=== PATIENT | female | born 1995 | race Caucasian/White ===

== ENCOUNTER 2023-12-14 12:49 | Observation (INO) | payer OTHER, SELFPAY ==
[2023-12-14 13:12] VITALS: BP 107/62; PULSE 56; TEMP 36.3
[2023-12-14 13:38] LABS: Bilirubin Urine NEGATIVE (NEGATIVE); Blood Urine NEGATIVE (NEGATIVE); Clarity Urine CLEAR (CLEAR); Color Urine LT. YELLOW (YELLOW); Glucose Urine UA NEGATIVE (NEGATIVE); Ketones Urine NEGATIVE (NEGATIVE); Leukocyte Esterase Urine NEGATIVE (NEGATIVE); Nitrite Urine NEGATIVE (NEGATIVE); Protein Urine NEGATIVE (NEG/TRACE); Specific Gravity Urine <=1.005 (1.005-1.025); Urobilinogen Urine 0.2 EU/dL (0.2-1.0); pH Urine 6.5 (5.0-9.0)
[2023-12-14 13:41] LABS: Urine Microscopic Indicated NO
--- NOTE | 2023-12-14 14:45 | PC.NURSE ---
1440- Vaginal culture obtained per this RN per physician order.
== END 2023-12-14 15:15 | disposition home or self-care (01) ==
LOC: FBC 12-17 14:34
PROVIDERS: Admitting Provider Midwife; PCP Midwife; Visit Provider Obstetrics & Gynecology
DX: O26.892 Other specified pregnancy related conditions, second trimester (principal); R10.2 Pelvic and perineal pain; N89.8 Other specified noninflammatory disorders of vagina; Z3A.22 22 weeks gestation of pregnancy
CPT/HCPCS: 81003; 87070; G0378; G0379

== ENCOUNTER 2024-04-05 10:09 | Inpatient (IN) | payer OTHER, SELFPAY ==
[2024-04-05] VITALS (18 sets, daily range): BP systolic 88–169; BP diastolic 53–125; PULSE 62–105; TEMP 36.1–37.1
--- OUTSIDE RECORDS SUMMARY | 2024-04-05 09:43 | XMS_ITS | CCD ---
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 (Bld) 0.4 % Normal 0.2-2.0 [facility] Comment on above: Performed By: #### C BC #### [facility] [address] [place] [address] Dr. Jayla Sapp EO # 0.0 103/ul Normal 0.0-0.7 [facility] Comment on above: Performed By: #### C BC #### [facility] [address] [place] [address] Dr. Jayla Sapp Eosinophils/100 WBC (Bld) 0.4 % Critically low 0.9-7.0 [facility] Comment on above: Performed By: #### C BC #### [facility] [address] [place] [address] Dr. Jayla Sapp Erythrocyte distribution width (RBC) [Ratio] 12.5 % Normal 11.0-15.0 [facility] Comment on above: Performed By: #### C BC #### [facility] [address] [place] [address] Dr. Jayla Sapp Hematocrit (Bld) [Volume fraction] 37.0 % Normal 36.0-48.0 [facility] Comment on above: Performed By: #### C BC #### [facility] [address] [place] [address] Dr. Jayla Sapp Hemoglobin (Bld) [Mass/Vol] 12.3 g/dL Normal 12.0-16.0 [facility] Comment on above: Performed By: #### C BC #### [facility] [address] [place] [address] Dr. Jayla Sapp IG # 0.05 10e3/ul Critically high 0.00-0.03 [facility] Comment on above: Performed By: #### C BC #### [facility] [address] [place] [address] Dr. Jayla Sapp IG % 0.5 % Normal 0.0-0.5 [facility] Comment on above: Performed By: #### C BC #### [facility] [address] [place] [address] Dr. Jayla Sapp LYMPH # 1.4 103/ul Normal 1.2-3.8 [facility] Comment on above: Performed By: #### C BC #### [facility] [address] [place] [address] Dr. Jayla Sapp Lymphocytes/100 WBC (Bld) 14.6 % Critically low 20.5-60.0 [facility] Comment on above: Performed By: #### C BC #### [facility] [address] [place] [address] Dr. Jayla Sapp MANUAL DIFF REQ NO Normal [facility] Comment on above: Performed By: #### C BC #### [facility] [address] [place] [address] Dr. Jayla Sapp MCH (RBC) [Entitic mass] 30.8 pg Normal 26.7-34.0 [facility] Comment on above: Performed By: #### C BC #### [facility] [address] [place] [address] Dr. Jayla Sapp MCHC (RBC) [Mass/Vol] 33.2 g/dL Normal 29.9-35.2 [facility] Comment on above: Performed By: #### C BC #### [facility] [address] [place] [address] Dr. Jyala Sapp MCV (RBC) [Entitic vol] 92.5 fL Normal 81.0-99.0 [facility] Comment on above: Performed By: #### C BC #### [facility] [address] [place] [address] Dr. Jayla Sapp MONO # 0.8 103/ul Normal 0.3-0.8 [facility] Comment on above: Performed By: #### C BC #### [facility] [address] [place] [address] Dr. Jayla Sapp Monocytes/100 WBC (Bld) 8.1 % Normal 1.7-12.0 [facility] Comment on above: Performed By: #### C BC #### [facility] [address] [place] [address] Dr. Jayla Sapp NEUT # 7.2 103/ul Critically high 1.4-6.5 [facility] Comment on above: Performed By: #### C BC #### [facility] [address] [place] [address] Dr. Jayla Sapp Neutrophils/100 WBC (Bld) 76.0 % Critically high 43.0-75.0 [facility] Comment on above: Performed By: #### C BC #### [facility] [address] [place] [address] Dr. Jayla Sapp Platelet mean volume (Bld) [Entitic vol] 11.4 fL Normal 9.5-13.5 [facility] Comment on above: Performed By: #### C BC #### [facility] [address] [place] [address] Dr. Jayla Sapp PLT 187 103/ul Normal 150-450 [facility] Comment on above: Performed By: #### C BC #### [facility] [address] [place] [address] Dr. Jayla Sapp RBC 4.00 106/ul Critically low 4.20-5.40 [facility] Comment on above: Performed By: #### C BC #### [facility] [address] [place] [address] Dr. Jayla Sapp WBC 9.5 103/ul Normal 4.0-11.0 [facility] Comment on above: Performed By: #### C BC #### [facility] [address] [place] [address] Dr. Jayla Sapp MONOon 10-11-2022 Monocytes (Bld) [#/Vol] Negative Normal NEGATIVE T [facility] Comment on above: Performed By: #### M CASSIDY #### [facility] [address] [place] [address] Dr. Jayla Sapp Covid-19 PCR (CVDTBH)on 04-20 SARS-CoV-2 (COVID-19) RNA MASSIOM+probe Ql (Unsp spec) Not detected Normal NOT DETECTED [facility] Comment on above: Result Comment: This test is not yet approved or cleared by the [place] FDA. When there are no FDA-approved or cleared tests available, and other criteria are met, FDA can make tests available under an emergency access mechanism called an Emergency Use Authorization (EUA). The EUA for this test is supported by the Certified Professional Coder of Health and Human Service's (HHS's) declaration that circumstances exist to justify the emergency use of in vitro diagnostics for the detection and/or diagnosis of the virus that causes COVID-19. This EUA will remain in effect (meaning this test can be used) for the duration of the COVID-19 declaration justifying emergency of IVDs, unless it is terminated or revoked by FDA (after which the test may no longer be used). When diagnostic testing is negative, the possibility of a false negative should be considered in the context of a patient's recent exposures and the presence of clinical signs and symptoms consistent with SARS-CoV-2. Performed By: #### C VDTB #### [facility] [address] [place] [address] Dr. Jayla Sapp INFLUENZA A AND B [facility] 05-08 [facility] SEE BELOW Normal [facility] Comment on above: Result Comment: Nega tive for Flu A protein angiten. Infection due to Flu A cannot be ruled out. Flu A angiten in the sample may be below the detection limit of the test. Performed By: #### I NFLUAB #### [facility] [address] [place] [address] [facility] SEE BELOW Normal [facility] Comment on above: Result Comment: Nega tive for Flu B protein antigen. Infection due to Flu B cannot be ruled out. Flu B antigen in the sample may be below the detection limit of the test. Performed By: #### I NFLUAB #### [facility] [address] [place] [address] Dr. Jayla Sapp INFLUENZA A AG Negative Normal NEGATIVE SEE COMMENT [facility] Comment on above: Performed By: #### I NFLUAB #### [facility] [address] [place] [address] Dr. Jayla Sapp INFLUENZA B AG Negative Normal NEGATIVE SEE COMMENT [facility] Comment on above: Performed By: #### I NFLUAB #### [facility] [address] [place] [address] Dr. Jayla Sapp INTERNAL CONTROLS Within Normal Limits Normal Wi thin Normal Limits [facility] Comment on above: Performed By: #### I NFLUAB #### [facility] [address] [place] [address] Dr. Jayla Sapp CBC auto differentialOrdered By: Tomasa Padgett on 05-01-2021 Absolute Eos # 0.00 [employer] [facility] Work Phone: Absolute Immature Granulocyte 0.26 [facility] Work Phone: Absolute Lymph # 2.05 [employer] [facility] Work Phone: Absolute Emery # 0.77 [employer] [facility] Work Phone: Basophils (Bld) [#/Vol] 0.00 10*3/uL [employer] Work Phone: Basophils/100 WBC (Bld) 0 % 0 - 2 % [facility] Work Phone: Differential Type NOT REPORTED [facility] Phone: Eosinophils/100 WBC (Bld) 0 % Low 1 - 4 % [employer] Phone: Hematocrit (Bld) [Volume fraction] 34.1 % Low 36.3 - 47.1 % [employer] Phone: Hemoglobin.gastrointest inal spec 1 Ql (Stl) 11.2 g/dL Low 11.9 - 15.1 g/dL [employer] Phone: Immature granulocytes/100 WBC (Bld) 2 % High 0 [employer] Phone: Interpretation and review of laboratory results Abnormal [employer] Phone: Lymphocytes/100 WBC (Bld) 16 % Low 24 - 43 % [employer] Phone: MCH (RBC) [Entitic mass] 32.4 pg 25.2 - 33.5 pg [employer] Phone: MCHC (RBC) [Mass/Vol] 32.8 g/dL 28.4 - 34.8 g/dL [employer] Phone: MCV (RBC) [Entitic vol] 98.6 fL 82.6 - 102.9 fL [employer] Work Phone: Monocytes/100 WBC (Bld) 6 % 3 - 12 % [facility] Work Phone: Morphology Vj (Bld) [Interp] Platelet clumps present, count appears adequate. [employer] Work Phone: NRBC Automated 0.0 0.0 per 100 WBC [employer] Phone: Platelet distribution width (Bld) [Ratio] 12.7 % 11.8 - 14.4 % [employer] Phone: Platelet Estimate NOT REPORTED [employer] Phone: Platelet mean volume (Bld) [Entitic vol] NOT REPORTED 8.1 - 13.5 fL [employer] Work Phone: Platelets (Bld) [#/Vol] See Reflexed IPF Result [employer] Phone: RBC (Bld) [#/Vol] 3.46 10*6/uL Low 3.95 - 5.1 1 m/uL [employer] Work Phone: RBC (Bld) [#/Vol] NOT REPORTED [employer] Work Phone: Segmented neutrophils/100 WBC (Bld) 76 % High 36 - 65 % [employer] Work Phone: Segs Absolute 9.72 High [employer] Work Phone: WBC (Bld) [#/Vol] 12.8 10*3/uL High [employer] Work Phone: WBC (Bld) [#/Vol] NOT REPORTED [employer] Work Phone: [employer] Work Phone: CBC with Diffon 05-01-2021 Abs. Basophil 0.00 k/uL Normal 0.0-0.2 [facility] Comment on above: Performed By: #### I PF, CDP #### [facility] [address] [place] [address] Dr. Renea, [place] [id number] Post Acute Care Nurse: Jose Francisco Trotter MD Abs.Imm.Granulocyte 0.26 k/uL Normal 0.00-0.30 [facility] Comment on above: Performed By: #### I PF, CDP #### [address] Renae, [facility]83 Post Acute Care Nurse: Jose Francisco Trotter MD Abs.Neutrophil (Seg) 9.72 k/uL High 1.50-8.10 [facility] Comment on above: Performed By: #### I PF, CDP #### [address] [place] [address] Post Acute Care Nurse: Jose Francisco Trotter MD Basophils/100 WBC (Bld) 0 % Normal 0-2 [facility] Comment on above: Performed By: #### I PF, CDP #### [address] [place] [address] Post Acute Care Nurse: Jose Francisco Trotter MD Eosinophils (Bld) [#/Vol] 0.00 10*3/uL Normal 0.00-0.44 [facility] Comment on above: Performed By: #### I PF, CDP #### [address] Renae, [place] [address] Post Acute Care Nurse: Jose Francisco Trotter MD Eosinophils/100 WBC (Bld) 0 % Low 1-4 [facility] Comment on above: Performed By: #### I PF, CDP #### [address] Renae, [facility]83 Post Acute Care Nurse: Jose Francisco Trotter MD Immature granulocytes/100 WBC (Bld) 2 % High 0 [facility] Comment on above: Performed By: #### I PF, CDP #### [address] [place] [id number] Post Acute Care Nurse: Jose Francisco Trotter MD Lymphocytes (Bld) [#/Vol] 2.05 10*3/uL Normal 1.10-3.70 [facility] Comment on above: Performed By: #### I PF, CDP #### [facility] [address] [place] [address] [place] [address] Post Acute Care Nurse: Jose Francisco Trotter MD Lymphocytes/100 WBC (Bld) 16 % Low 24-43 [facility] Comment on above: Performed By: #### I PF, CDP #### [facility] [address] [place] [address] [place] [address] Post Acute Care Nurse: Jose Francisco Trotter MD Monocytes (Bld) [#/Vol] 0.77 10*3/uL Normal 0.10-1.20 [facility] Comment on above: Performed By: #### I PF, CDP #### [address] Renae, [place] [address] Post Acute Care Nurse: Jose Francisco Trotter MD Monocytes/100 WBC (Bld) 6 % Normal 3-12 [facility] Comment on above: Performed By: #### I PF, CDP #### [address] [place] [address] Post Acute Care Nurse: Jose Francisco Trotter MD Morphology Vj (Bld) [Interp] Platelet clumps present, count appears adequate. Normal [facility] Comment on above: Performed By: #### I PF, CDP #### [facility] [address] [place] [address] Dr. Renae, [facility]83 Post Acute Care Nurse: Jose Francisco Trotter MD Neutrophil (Seg) 76 % High 36-65 [facility] Comment on above: Performed By: #### I PF, CDP #### [address] Renae, [facility]83 Post Acute Care Nurse: Jose Francisco Trotter MD Erythrocyte distribution width (RBC) [Ratio] 12.7 % Normal 11.8-14.4 [facility] Comment on above: Performed By: #### I PF, CDP #### [address] Renae, [place] [id number] Post Acute Care Nurse: Jose Francisco Trotter MD Hematocrit (Bld) [Volume fraction] 34.1 % Low 36.3-47.1 [facility] Comment on above: Performed By: #### I PF, CDP #### [address] [place] [id number] Post Acute Care Nurse: Jose Francisco Trotter MD Hemoglobin (Bld) [Mass/Vol] 11.2 g/dL Low 11.9-15.1 [facility] Comment on above: Performed By: #### I PF, CDP #### [address] [place] [id number] Post Acute Care Nurse: Jose Francisco Trotter MD MCH (RBC) [Entitic mass] 32.4 pg Normal 25.2-33.5 [facility] Comment on above: Performed By: #### I PF, CDP #### [address] [place], [place] [id number] Post Acute Care Nurse: Jose Francisco Trotter MD MCHC (RBC) [Mass/Vol] 32.8 g/dL Normal 28.4-34.8 [facility] Comment on above: Performed By: #### I PF, CDP #### [address] [place] [id number] Post Acute Care Nurse: Jose Francisco Trotter MD MCV (RBC) [Entitic vol] 98.6 fL Normal 82.6-102.9 [facility] Comment on above: Performed By: #### I PF, CDP #### [address] [place] [address] Post Acute Care Nurse: Jose Francisco Trotter MD NRBC Automated 0.0 per 100 WBC Normal 0.0 [facility] Comment on above: Performed By: #### I PF, CDP #### [address] [place] [address] Post Acute Care Nurse: Jose Francisco Trotter MD Platelet Count See Reflexed IPF Result Normal 138-453 [facility] Comment on above: Performed By: #### I PF, CDP #### [facility] [address] [place] [address] Post Acute Care Nurse: Jose Francisco Trotter MD RBC (Bld) [#/Vol] 3.46 10*6/uL Low 3.95-5.11 [facility] Comment on above: Performed By: #### I PF, CDP #### [facility] [address] [place] [address] Post Acute Care Nurse: Jose Francisco Trotter MD WBC (Bld) [#/Vol] 12.8 10*3/uL High 3.5-11.3 [facility] Comment on above: Performed By: #### I PF, CDP #### [facility] [address] [place] [address] Post Acute Care Nurse: Jose Francisco Trotter MD Auto Diff Performed NOT REPORTED Normal [facility] Comment on above: Performed By: #### I PF, CDP #### [facility] [address] [place] [address] Post Acute Care Nurse: Jose Francisco Trotter MD MPV NOT REPORTED Normal 8.1-13.5 [facility] Comment on above: Performed By: #### I PF, CDP #### [facility] [address] [place] [address] Post Acute Care Nurse: Jose Francisco Trotter MD Platelet Estimate NOT REPORTED Normal [facility] Comment on above: Performed By: #### I PF, CDP #### [facility] [address] [place], [place] [id number] Post Acute Care Nurse: Jose Francisco Trotter MD RBC morphology finding Nom (Bld) NOT REPORTED Normal [facility] Comment on above: Performed By: #### I PF, CDP #### [facility] [address] [place], [place] [id number] Post Acute Care Nurse: Jose Francisco Trotter MD WBC Morphology NOT REPORTED Normal [facility] Comment on above: Performed By: #### I PF, CDP #### [facility] [address] [place], [place] [id number] Post Acute Care Nurse: Jose Francisco Trotter MD Immature Platelet FractionOr dered By: Tomasa Padgett on 05-01-2021 Interpretation and review of laboratory results Abnormal [facility] Phone: Platelet, Fluorescence 104 Low Me [facility] [email or web address] Phone: Platelet, Immature Fraction 21.3 % High 1.1 - 10.3 % [facility] [email or web address] Phone: [facility] [email or web address] Phone: PLT, Immature Fract.on 05-01 Platelet, Fluoresc. 104 k/uL Low 138-453 [facility] Comment on above: Performed By: #### I PF, CDP #### [address] [place], [place] [id number] Post Acute Care Nurse: Jose Francisco Trotter MD PLT, Immature Fract. 21.3 % High 1.1-10.3 [facility] Comment on above: Performed By: #### I PF, CDP #### [address] [place], [place] [id number] Post Acute Care Nurse: Jose Francisco Trotter MD GBS, External ResultOrdered By: Historical Provider on 03-28-2021 GBS, External Result Negative [facility] [email or web address] Phone: Comment on above: verified CK RN Outside lab see results [facility] Phone: [facility] [email or web address] Phone: HIV ScreenOrdered By: Histor ical Provider on 10-14-2020 HIV Ag/Ab NR [facility] [email or web address] Phone: Comment on above: verified CK RN N. GONORRHOEAE CULTUREOrdere d By: Historical Provider on 10-14-2020 Culture, Gonorrhoeae Negative [employer] Work Phone: Comment on above: verified SYMONE RN No Panel InformationOrdered By: Historical Provider on 10-14-2020 Outside lab see results [employer] Work Phone: [employer] Work Phone: [employer] Work Phone: PROFILE IOrdered By : Historical Provider on 10-14-2020 ABO/Rh O+ [employer] Phone: Comment on above: verified SYMONE RN Hepatitis B Surface Ag [facility] Work Phone: Comment on above: verified SYMONE RN Rubella virus IgG Ql (S) IMM [employer] Work Phone: Comment on above: verified SYMONE RN T. pallidum, IgG [facility] Work Phone: Comment on above: verified SYMONE RN Vital Signs Date Time Vital Sign Value Performing Clinician Yong calvo 05-03-2021 08:15-0400 Diastolic blood pressure 56 mm[Hg] Tomasa Encisoo [employer] CNM Work Phone: [employer] Phone: 05-03-2021 08:15-0400 Heart rate 62 /min Tomasa Padgett [employer] Work Phone: [employer] Work Phone: 05-03-2021 08:15-0400 Respiratory rate 16 /min Tomasa Zariao [employer] - CNM Work Phone: [employer] Work Phone: 05-03-2021 08:15-0400 Systolic blood pressure 118 mm[Hg] Tomasa Zariao [employer] - CNM Work Phone: [employer] Work Phone: 05-03-2021 00:09-0400 Body temperature 98.01 [degF] Tomasa Floro [employer] - CNM Work Phone: [facility] Work Phone: Encounters Encounter Date Encounter Type Care Provider Facility Start: 04-03-2024 End: 04-03-2024 ambulatory TOMASA L FLORO Not Available Start: 03-26-2024 End: 03-26-2024 ambulatory TOMASA L FLORO Not Available Start: 03-04-2024 End: 03-04-2024 ambulatory TOMASA L FLORO Not Available Start: 02-19-2024 End: 02-19-2024 ambulatory TOMASA L FLORO Not Available Start: 02-07-2024 End: 02-07-2024 ambulatory TOMASA L FLORO Not Available Start: 01-24-2024 End: 01-24-2024 ambulatory TOMASA L FLORO Not Available Start: 01-01-2024 End: 01-01-2024 ambulatory TOMASA L FLORO Not Available Start: 12-25-2023 End: 12-25-2023 ambulatory TOMASA L FLORO Not Available Start: 11-27-2023 End: 11-27-2023 ambulatory TOMASA L FLORO Not Available Start: 10-29-2023 End: 10-29-2023 ambulatory TOMASA L FLORO Not Available Start: 2023 Refill Tomasa L Zaria o CNM Work Phone: [facility] Comment on above: Nausea and vomiting, unspecified vomiting type Start: 09-20-2023 End: 09-20-2023 ambulatory TOMASA L FLORO Not Available Start: 09-16-2023 End: 09-16-2023 Emergency department patient visit [facility] Start: 09-07-2023 End: 09-07-2023 ambulatory TOMASA L FLORO Not Available Start: 09-05-2023 End: 09-05-2023 ambulatory TOMASA L FLORO Not Available Start: 12-02-2022 End: 12-02-2022 Emergency department patient visit SIMIN HARLEY [facility] Start: 10-11-2022 End: 10-12-[address] SIMIN HARLEY . Facility:[facility] Start: 05-08-2022 End: 05-08-[address] SIMIN HARLEY . Facility:[facility] Start: 05-01-2021 End: 05-03-2021 Evaluation and management of inpatient SIMIN HARLEY [facility] Start: 05-01-2021 End: 05-03-2021 Evaluation and management of inpatient Tomasa Padgett [employer] - CNM Work Phone: [facility] Labor and Delivery Procedures Date Procedure Procedure Detail Performing Clinician Start: 05-01-2021 Blood count complete auto&auto difrntl wbc Tomasa Padgett [employer] PR[employer] TEND[employer] - CN Work Phone: Start: 05-01-2021 IMMATURE PLATELET FRACTION Tomasa Padgett [employer] - CN Work Phone: Start: 03-28-2021 GBS, EXTERNAL RESULT Hi storical Provider Start: 10-14-2020 Antibody hiv-1&hiv-2 single result Historical Provider Start: 10-14-2020 Chlamydia culture George Padgett [employer] PRINT TENDER - CN Work Phone: Comment on above: verified CK RN Start: 10-14-2020 Iaadiadoo neisseria gonorrhoeae Historical Provider Plan of Treatment Date Care Activity Detail Author Start: 10-17-2023 End: 10-17-2023 Patient encounter procedure 10/17/2023 4:30 PM EST Routine [facility] [address] [place] [address] Tomasa Padgett CNM [address] [place], [place] [id number] [facility] Start: 04-20-2021 Influenza vaccination Flu vaccine (# 1) [facility] Work Phone: Start: 2007 COVID-19 Vaccine (1) COVID-19 Vaccin e (1) [facility] Work Phone: Immunizations Immunization Date Immunization Notes Care Provider Fa cility 05-01-2021 diphtheria, tetanus toxoids and acellular pertussis vaccine, unspecified formulation Tomasa Padgett [employer] - [facility] Work Phone: [employer] Work Phone: 05-01-2021 measles, mumps and rubella virus vaccine Tomasa Padgett [employer] - CN Work Phone: [employer] Work Phone: Payers Date Payer Category Payer Private Health Insurance JOSE HAINES [id number] 2023-Present [address] [place] [address] [id number] 2023 Private Health Insurance [id number] 2023 Private Health Insurance [id number] 2022 Medicaid [employer] [place] [id number] 2022-Present [address] [place] [address] [id number] 2021 Private Health Insurance [id number] 1995 Unknown [id number] 2.16.840.1.425027.3.579.2. 173 1995 Unknown [id number] 2.16.840.1.856895.3.579.2. 593 1995 Unknown [id number] 2.16.840.1.406720.3.579.2. 593 1995 Unknown [id number] 2.16.840.1.993141.3.579.2. 754 1995 Unknown [id number] 2.16.840.1.870691.3.579.2. 1286 1995 Unknown [id number] 2.16.840.1.887778.3.579.2. 1259 1995 Unknown [id number] 2.16.840.1.768536.3.579.2. 1259 1995 Unknown [id number] 2.16.840.1.795106.3.579.2. 9 1995 Unknown [id number] 2.16.840.1.060367.3.579.2. 9 1995 Unknown [id number] 2.16.840.1.902796.3.579.2. 9 1995 Unknown [id number] 2.16.840.1.060766.3.579.2. 9 1995 Unknown [id number] 2.16.840.1.461205.3.579.2. 1258 1995 Unknown [id number] 2.16.840.1.268735.3.579.2. 9 1995 Unknown [id number] 2.16.840.1.395755.3.579.2. 9 1995 Unknown [id number] 2.16.840.1.134829.3.579.2. 9 1995 Unknown [id number] 2.16.840.1.069070.3.579.2. 9 1995 Unknown [id number] 2.16.840.1.592459.3.579.2. 9 1995 Unknown [id number] 2.16.840.1.855925.3.579.2. 9 1995 Unknown [id number] 2.16.840.1.773766.3.579.2. 1259 1959 Unknown [id number] 1.2.840.604903.1.13.239.2. [id number] Social History Date Type Detail Facility Start: 05-01-2021 Tobacco smoking stat [facility] Former smoker [facility] Work Phone: Start: 05-01-2021 End: 09-05-2023 Tobacco use and exposure Never used [facility] Start: 05-01-2021 Alcohol intake Ex-drinker (finding) [facility] [employer] Work Phone: Start: 1995 Sex Assigned At Not on file M duran [employer] Work Phone: Start: 09-05-[facility]23 [facility] Start: 09-05-2023 Alcohol intake Lifetime non-d elmer (finding) [facility] Start: 09-05-2023 History of Social function [facility] Start: 09-05-2023 Tobacco use panel [facility] Start: 08-24-2023 Alcohol Comment caffeine: none [facility] Start: 07-25-2023 [facility] Telephone encounter Note 2023 Telephone Encounter - Vicente Wilkes - 2023 12:45 PM EST Note Date & Type Note Facility 2023 Telephone encount er Note Pt requesting refill Zofran to [facility]. Also questions if envelope is ready with gender reveal. Her call back is [phone]. Thank you! [facility] Note 2023 Telephone Encounter - Vicente Wilkes - 2023 12:45 PM EST Note Date & Type Note Facility 2023 Miscellaneous Notes Formattin g of this note might be different from the original. Pt requesting refill Zofran to [facility]. Also questions if envelope is ready with gender reveal. Her call back is [phone]. Thank you! documented in this encounter [facility] History of Present illness Narrative 05-03-2021 Berenice Acosta APRN - CNM - 05/03/2021 8:04 AM EDTFTomasa valdez APRN - CNM - 05/02/2021 9:19 AM EDT Note Date & Type Note Facility 05-03-2021 History of Present illness Narrative Department of Obstetrics and Gynecology Labor and Delivery Post Progress Note SUBJECTIVE: 2nd day s/p , c/o constipation OBJECTIVE: Vitals: BP (!) 101/59 Pulse 63 Temp 98 F (36.7 C) Resp 16 LMP 07/31/2020 Unknown Patient Vitals for the past 24 hrs: BP Temp Temp src Pulse Resp 05/03/21 0009 (!) 101/59 98 F (36.7 C) 63 16 05/02/21 1950 109/66 98.1 F (36.7 C) 77 18 05/02/21 1544 110/68 97.9 F (36.6 C) Oral 70 16 05/02/21 1140 (!) 100/58 97.5 F (36.4 C) Oral 73 16 ABDOMEN: normal shape, position and consistency GENITAL/URINARY: External Genitalia: General appearance; normal, Hair distribution; normal, Lesions absent Uterus: Size normal, Tenderness absent Breast:normal appearance, no masses or tenderness Cor: RRR no Murmurs Pulmonary: clear to auscultation anterior and posterior Extremities: no Clubbing cyanosis or ecchymosis DATA: CBC: Lab Results Component Value Date WBC 12.8 05/01/2021 RBC 3.46 05/01/2021 HGB 11.2 05/01/2021 HCT 34.1 05/01/2021 MCV 98.6 05/01/2021 MCH 32.4 05/01/2021 MCHC 32.8 05/01/2021 RDW 12.7 05/01/2021 PLT See Reflexed IPF Result 05/01/2021 MPV NOT REPORTED 05/01/2021 ASSESSMENT : Active Problems: Term Plan: delivered Normal delivery Plan: D/c home, rto 2 and 6 weeks , routine instructions and orders Department of Obstetrics and Gynecology Labor and Delivery Post Progress Note SUBJECTIVE: Side lying in bed baby. States her bottom is sore, but the ice, spray and puneet bottle are helping. OBJECTIVE: Vitals: BP (!) 131/58 Pulse 68 Temp 97.8 F (36.6 C) (Oral) Resp 16 LMP 07/31/2020 Unknown Patient Vitals for the past 24 hrs: BP Temp Temp src Pulse Resp 05/02/21 0725 (!) 131/58 97.8 F (36.6 C) Oral 68 16 05/01/21 2344 121/70 98.4 F (36.9 C) 97 16 05/01/212009 (!) 95/52 98.9 F (37.2 C) 78 18 05/01/21 1603 121/64 89 16 05/01/21 1417 123/65 80 20 05/01/21 1402 122/77 82 16 05/01/21 1347 117/67 73 18 05/01/21 1332 117/62 82 18 05/01/21 1317 116/60 86 16 05/01/21 1302 121/64 90 16 05/01/21 1247 125/61 80 20 05/01/21 1232 (!) 142/74 96 16 05/01/21 1217 116/68 82 16 05/01/21 1203 (!) 115/42 151 18 05/01/21 1152 105/61 85 16 05/01/21 1147 139/71 79 05/01/21 1132 (!) 142/74 86 05/01/21 1117 (!) 127/58 85 ABDOMEN: normal shape, position and consistency, non tender GENITAL/URINARY: External Genitalia: General appearance; normal, Hair distribution; normal, Lesions absent Uterus: Position normal, Tenderness absent, FF U/-1 Breast:normal appearance, no masses or tenderness Cor: RRR no Murmurs Pulmonary: clear to auscultation anterior and posterior Extremities: no Clubbing cyanosis or ecchymosis DATA: 25 yo S/P - 1st post day First degree repair and right labial repair ASSESSMENT : Active Problems: Term Plan: Continue routine post orders Encouraged ambulation Educate patient on puneet-care documented in this encounter [facility] Phone: Evaluation note Note Date & Type Note Facility Evaluation note Diagnosis Term Normal delivery documented in this encounter [facility] Phone: Evaluation note Note Date & Type Note Facility Evaluation note Diagnosis Nausea and vomiting, unspecified vomiting type documented in this encounter [facility] Hospital Discharge instructions Instructions Note Date & Type Note Facility Hospital Discharge instructions Gemini Conde RN - 05/03/2021 Follow-up with your OB doctor as specified. [facility] OB Department phone: Dr. Annetta Lyon CNM Dr. Carmela Acosta CNM [address] [facility] [address] [facility] [address] Carmela Walters CN [address] [facility] [address] [phone] Evelyn Padgett, MSN, [employer]ER PRINT TENDER, CNM [facility] [address] [facility] [address] [address] Man[address] [facility] [address] Berenice Maldonado CNM [address] [place] [address] [place] [address] Vera Wright CNM [address] [place] [address] [place] [address] [phone] DIET Eat a well balanced diet focusing on foods high in fiber and protein. Drink plenty of fluids especially water. To avoid constipation you may take a mild stool softener as recommended by your doctor or coal weigher. ACTIVITY Gradually increase your activity. Resume exercise regimen only after advice by your doctor or coal weigher. Avoid lifting anything heavier than a gallon of milk for SIX weeks. Avoid driving until your doctor or coal weigher has given their approval. Rise slowly from a lying to sitting and then a standing position. Climb stairs one at a time. Use caution when carrying your baby up and down the stairs. NO SEXUAL Activity for 4-6 weeks or until advised by your doctor; Nothing in vagina: intercourse, tampons, or douching. Be prepared to discuss family planning at your follow-up OB visit. You may feel tired or have a lack of energy. You may continue your vitamin to replenish nutrients post delivery. Nap when baby naps to catch up on sleep. EMOTIONS You may feel amador, sad, teary, & overwhelmed. Contact your OB provider if you feel you may be showing signs of depression, or have thoughts of harming yourself or your infant. If infant will not stop crying, contact another adult for help or place in their crib on their back and take a break. NEVER shake your . BLEEDING Vaginal bleeding will decrease in amount over the next few weeks. You will notice that as your activity increases, your flow may increase. This is your body's way of telling you, you need to take things easier and rest more often. Call your care provider if you are saturating more than one maxi pad in an hour & resting does not help. BREAST CARE Take medications as recommended by your doctor or coal weigher for pain If you develop a warm, red, tender area on your breast or develop a fever contact your OB provider. For moms: If you become engorged, feeding may be more difficult or painful for 1-2 days. You may find it helpful to hand express some milk so that the infant can latch on more easily. While , continue to take your vitamins as directed by your doctor or coal weigher. Refer to the booklet in the folder/binder for more information. If you feel you need more assistance or have questions, please call Rossy Hedrick IBCLC, insolvency consultant, at or the OB department to schedule an appointment or phone consultation. For more FREE help, visit the Support Group on Sunday evenings at 7 pm in the OB department. For NON- moms: You may apply ice packs to your breasts over your bra for twenty minutes at a time for comfort. Avoid stimulation to your breasts, when showering allow the water to strike your back not your breasts. Wear a good fitting bra until your milk dries, such as a sports bra. PUNEET CARE Use the puneet-bottle after toileting until bleeding stops. Cleanse your perineum from front to back If used, stitches will dissolve in 4-6 weeks. You may use a sitz bath or soak in a clean tub as needed for comfort. Kegel exercises will help restore bladder control. SWELLING Try to keep your legs elevated when you are sitting. When lying down keep your legs elevated. When wearing stocking or socks, make sure they are not too tight. WHEN TO CALL THE DOCTOR If you have a temp of 100.6 or more. If your bleeding has increased and you are saturating a pad in an hour. Your abdomen is tender to touch. You are passing blood clots bigger than the size of a lemon. If you are experiencing extreme weakness or dizziness. If you are having flu-like symptoms such as achy muscles or joints. There is a foul smell or a green color to your vaginal bleeding. If you have pain that cannot be relieved. You have persistent burning or frequency with urination. Call if you have concerns about your well-being. You are unable to sleep, eat, or are having thoughts of harming yourself or your baby. You have swelling, bleeding, drainage, foul odor, redness, or warmth in/around your incision or stitches. You have a red, warm, tender area in your calf. documented in this encounter [employer] Work Phone: Advance Directives No Advanced Directives Records FoundLatest Code Status on File Code Status Date Activated Date Inactivated Comments Full Code 05/01/2021 1:25 PM Full Code 05/01/2021 9:06 AM 05/01/2021 1:25 PM Summary Purpose Family History No Family History Records FoundNo Family History Records FoundNo Family History Records FoundNo Family History Records FoundNo Family History Records Found Additional Source Comments Reason for Visit (unrecogniz ed section and content) Reason Comments Contractions Status Reason Specialty Diagnoses / Procedures Referre d By Contact Referred To Contact Diagnoses Term Tomasa Padgett APRN - CN [address] [place] [address] [facility] [employer] Reason Onset Date Comments Med Refill 2023 Ordered Prescriptions (unrec ognized section and content) Prescription Sig Dispensed Refills Start Date End Da te docusate sodium (COLACE) 100 MG capsule Take 1 capsule by mouth 2 times daily 60 capsule 0 05/03/2021 Scheduled Active and Recently Administ ered Medications (unrecognized section and content) Medication Order 05/01/2021 05/02/2021 05/03/2021 benzocaine-menthol (DERMOPLAST) 20-0.5 % spray Topical, 2 TIMES DAILY, First dose on 05/01/21 at 1345, Apply to perineal area. Patient is capable and may self administer at bedside., 1345 (Due)2011 (Given - Provider: Saadia Gonzalez RN) 0900 (Due)2100 (Due) 0819 (Given - Provider: Gemini Conde RN)2100 (Due) ibuprofen (ADVIL;MOTRIN) tablet 800 mg 800 mg, Oral, EVERY 8 HOURS, First dose on 05/01/21 at 1400, Do not crush or break., 1558 (Given - Provider: Richelle Armas, RACHELLE)2346 (Given - Provider: Saadia Gonzalez RN) 0834 (Given - Provider: Gemini Conde RN)1400 (Due)1851 (Given - Provider: Young Ocampo LPN)2200 (Due) 0310 (Given - Provider: Faustina Ellington RN)0600 (Due)1207 (Given - Provider: Gemini Conde RN)2200 (Due) measles, mumps & rubella vaccine (MMR) injection 0.5 mL 0.5 mL, SubCUTAneous, PRIOR TO DISCHARGE, Starting on 05/01/21 at 1325, For 1 dose, sodium chloride flush 0.9 % injection 10 mL 10 mL, IntraVENous, EVERY 12 HOURS SCHEDULED (2 times per day), First dose on 05/01/21 at 2100, 2012 (Not Given - Provider: Saadia Gonzalez RN - Reason: Other) 0900 (Due)2100 (Due) 0818 (Not Given - Provider: Gemini Conde RN - Reason: Loss of IV access)2099 (Due) Vbedvnt-Vhsowy-Iwijk Pertussis (BOOSTRIX) injection 0.5 mL 0.5 mL, IntraMUSCular, PRIOR TO DISCHARGE, Starting on 05/01/21 at 1325, For 1 dose, If not previously administered during at 27-36 weeks as recommended by CDC., witch laila-glycerin (TUCKS) pad Topical, 2 TIMES DAILY, First dose on 05/01/21 at 1345, Apply to perineal area. Patient is capable and may self administer at bedside., 1345 (Due)2011 (Given - Provider: Saadia Gonzalez RN) 0900 (Due)2100 (Due) 0900 (Due)2100 (Due) PRN Medication Order 05/01/2021 05/02/2021 05/03/2021 0.9 % sodium chloride infusion 25 mL, IntraVENous, at 100 mL/hr, PRN, If patient receiving piggyback infusions without ordered maintenance IV fluids or with frequent/long duration piggyback infusions, Starting on 05/01/21 at 1325, Administer at the same rate as the piggyback being infused., acetaminophen (TYLENOL) tablet 650 mg 650 mg, Oral, EVERY 4 HOURS PRN, Fever, Fever >100.5 F (38 C) or pain 1-10, Starting on 05/01/21 at 1325, Maximum dose of acetaminophen is 4000 mg from all sources in 24 hours., 1345 (Given - Provider: Gemini Conde RN) 0947 (Given - Provider: Gemini Conde RN) docusate sodium (COLACE) capsule 100 mg 100 mg, Oral, 2 TIMES DAILY PRN, Constipation, Starting on 05/01/21 at 1325, Do not crush or break., 2011 (Given - Provider: Saadia Gonzalez RN) 1345 (Given - Provider: Gemini Conde RN) 0818 (Given - Provider: Gemini Conde RN) lansinoh lanolin ointment Topical, PRN, Dry Skin, nipple discomfort, Starting on 05/01/21 at 1325, 0354 (Given - Provider: Saadia Gonzalez RN) lidocaine PF 1 % injection 30 mL (COMPLETED) 30 mL, Other, PRN, for perineal laceration/episiotomy repair, Starting on 05/01/21 at 0905, For 1 dose, Post Delivery 1125 (Given - Provider: Richelle Armas, RACHELLE) nalbuphine (NUBAIN) injection 10 mg (CANCELED) 10 mg, IntraVENous, EVERY 2 HOURS PRN, Pain Moderate (4-6), Pain Severe (7-10), For pain, Starting on 05/01/21 at 0905, PRN for pain, Labor and Delivery 0914 (Given - Provider: Richelle Armas, RN) ondansetron (ZOFRAN-ODT) disintegrating tablet 8 mg 8 mg, Oral, EVERY 8 HOURS PRN, Nausea, Starting on 05/01/21 at 1325, oxytocin (PITOCIN) 10 unit bolus from the bag (COMPLETED) 999 mL/hr, IntraVENous, at 999 mL/hr, Administer over 20 Minutes, PRN, Bleeding, Starting on 05/01/21 at 0905, For 1 dose, For Post Use Only. Give after delivery of placenta. On provider order Bolus for bag to infuse at 999 ml/hour for 20 minutes ., Post Delivery 1124 (Given - Provider: Richelle Armas RN)1144 (Due: Stopped - Provider: Richelle Armas RN) oxytocin (PITOCIN) 30 units in 500 mL infusion (CANCELED) 166 srikanth-units/min (166 mL/hr), IntraVENous, at 166 mL/hr, PRN, Bleeding, Starting on 05/01/21 at 0905, For 1 dose, For Post Use Only. Give after delivery of placenta. Following Bolus from bag administration, reduce the rate to166 mL/hr and administer remaining bag, Post Delivery 1145 (Rate/Dose Change - Provider: Richlele Armas RN) sodium chloride flush 0.9 % injection 10 mL 10 mL, IntraVENous, PRN, Line Care, Starting on 05/01/21 at 1325, After every IV line use, sodium chloride flush 0.9 % injection 5-40 mL (CANCELED) 5-40 mL, IntraVENous, PRN, Line Care, Starting on 05/01/21 at 0905, For Line Patency: Peripheral IV = 5 mL; Midline or Central Line = 10 mL/lumen. If following IV push medication, administer flush at same rate as the IV push. Flush volume is determined by type of infusion therapy being given. For non-viscous solutions use: Peripheral IV = 5 mL Midline or Central Line = 10 mL/lumen For viscous solutions (i.e. blood components, parenteral nutrition, contrast media, or after obtaining blood sample) use: Peripheral IV = 10 mL Midline or Central Line = 20 mL/lumen, Labor and Delivery 0915 (Given - Provider: Richelle Armas RN) INFORMATION SOURCE (unrecogn ized section and content) DATE CREATED AUTHOR 05/17/2021 [facility] DATE CREATED AUTHOR AUTHOR'S ORGANIZ ATION 10/15/2022 [facility] DATE CREATED AUTHOR AUTHOR'S ORGANIZ ATION 12/03/2022 [facility] DATE CREATED AUTHOR AUTHOR'S ORGANIZ ATION 09/16/2023 [facility] DATE CREATED AUTHOR AUTHOR'S ORGANIZ ATION 04/04/2024 [facility] FOR RECORDS PERTAINING TO PATIENTS WHO ARE OR HAVE BEEN ENROLLED IN A CHEMICAL DEPENDENCY/SUBSTANCEABUSE PROGRAM, SOME INFORMATION MAY BE OMITTED. This clinical summary was aggregated from multiple sources. Caution should be exercised in using it in the provision of clinical care. This summary normalizes information from multiple sources, and as a consequence, information in this document may materially change the coding, format and clinical context of patient data. In addition, data may be omitted in some cases. CLINICAL DECISIONS SHOULD BE BASED ON THE PRIMARY CLINICAL RECORDS. [facility] [employer] provides no warranty or guarantee of the accuracy or completeness of information in this document.
--- OUTSIDE RECORDS SUMMARY | 2024-04-05 10:09 | XMS_ITS | CCD ---
Author Organization [facility] Care Team Providers Care Vegetables Cook Name Role Phone Simin Harley MD Primary Care Provider [phone] SIMIN HARLEY Primary Care Unavailable FLORO, TOMASA [...] Care Unavailable ANTIONETTE PENA Attending Unavailable SERVICES, [facility] Primary Care PAMELA Pryor Attending Unavailable Unavailable [...] (1 source) Start: 05-01-2021 witch laila-gl ycerin ([facility]) pad Completed/Discontinued Medications Medication Drug Class(es) Dates [...] 3050 gm / 6 lbs, 11 oz (9622-1754) [place] Normal: 3256 gm (4643-3644 gm) [place] Wt%: 31% for 38.1 wks [...] Anion gap [Moles/Vol] 7 mmol/L Normal 5-[address] [facility] Comment on above: Performed By: #### B , , CBCA #### [facility] ([id number]) [address] [place] [address] 33551 Calcium [Mass/Vol] 8.2 mg/dL Low 8.5-10.5 [facility] Comment on above: Performed By: #### B VIOLETA, , CBCA #### [facility] ([id number]) [address] [place] [address] 49029 Chloride [Moles/Vol] 103 mmol/L Normal 98-109 [facility] Comment on above: Performed By: #### B VIOLETA, , CBCA #### [facility] ([id number]) [address] [place] [address] 62305 CO2 [Moles/Vol] 22 mmol/L Normal 22-32 [facility] Comment on above: Performed By: #### B VIOLETA, , CBCA #### [facility] ([id number]) [address] [place] [address] 46878 Creatinine [Mass/Vol] 0.49 mg/dL Normal 0.40-1.[address] [facility] Comment on above: Result Comment: METH OD TRACEABLE TO IDMS STANDARD Performed By: #### B VIOLETA, , CBCA #### [facility] ([id number]) [address] [place] [address] 14666 eGFR (CKD-EPI) NON-RACE DEPENDENT >90 Normal >59 [facility] Comment on above: Result Comment: Reported eGFR is based on the CKD-EPI 2020 equation that does not use a race coefficient. Performed By: #### B VIOLETA, , CBCA #### [facility] ([id number]) [address] [place] [address] 41390 Glucose [Mass/Vol] 97 mg/dL Normal 65-99 [facility] Comment on above: Performed By: #### Diamante MCDANIEL, , CBCA #### [facility] ([id number]) [address] [place] [address] 82548 Potassium [Moles/Vol] 3.8 mmol/L Normal 3.5-5.[address] [facility] Comment on above: Performed By: #### Diamante MCDANIEL, , CBCA #### [facility] ([id number]) [address] [place] [address] 82017 Sodium [Moles/Vol] 132 mmol/L Low 134-146 [facility] Comment on above: Performed By: #### Diamante MCDANIEL, , CBCA #### [facility] ([id number]) [address] [place] [address] 13664 Urea nitrogen [Mass/Vol] 10 mg/dL Normal 5-23 [facility] Comment on above: Performed By: #### Diamante MCDANIEL, , CBCA #### [facility] ([id number]) [address] [place] [address] 82577 CBC AND AUTO DIFFon 01-28-20 24 ABSOLUTE BASOPHIL 0.0 X10E9/L Normal 0.0-0.2 [facility] Comment on above: Performed By: #### B VIOLETA, , CBCA #### [facility] ([id number]) [address] [place] [address] 27477 ABSOLUTE NEUTROPHIL 5.9 X10E9/L Normal 1.5-6.6 [facility] Comment on above: Performed By: #### Diamante MCDANIEL, , CBCA #### [facility] ([id number]) [address] [place] [address] 66123 Basophils/100 WBC (Bld) 0.2 % Normal [facility] Comment on above: Performed By: #### Diamante MCDANIEL, , CBCA #### [facility] ([id number]) [address] [place] [address] 96608 Eosinophils (Bld) [#/Vol] 0.0 10*3/uL Normal 0.0-0.4 [facility] Comment on above: Performed By: #### Diamante MCDANIEL, , CBCA #### [facility] ([id number]) [address] [place] [address] 58986 Eosinophils/100 WBC (Bld) 0.1 % Normal [facility] Comment on above: Performed By: #### Diamante MCDANIEL, , CBCA #### [facility] ([id number]) [address] [place] [address] 16988 Erythrocyte distribution width (RBC) [Ratio] 13.3 % Normal 11.5-15.0 [facility] Comment on above: Performed By: #### Diamante MCDANIEL, , CBCA #### [facility] ([id number]) [address] [place] [address] 06031 Hematocrit (Bld) [Volume fraction] 33.5 % Low 35-47 [facility] Comment on above: Performed By: #### B VIOLETA, , CBCA #### [facility] ([id number]) [address] [place] [address] 37226 Hemoglobin (Bld) [Mass/Vol] 11.6 g/dL Low 11.7-15.5 [facility] Comment on above: Performed By: #### Diamante MCDANIEL, , CBCA #### [facility] ([id number]) [address] [place] [address] 78171 Lymphocytes (Bld) [#/Vol] 0.3 10*3/uL Low 1.0-3.5 [facility] Comment on above: Performed By: #### Diamante MCDANIEL, , CBCA #### [facility] ([id number]) [address] [place] [address] 24835 Lymphocytes/100 WBC (Bld) 4.6 % Normal [facility] Comment on above: Performed By: #### Diamante MCDANIEL, , CBCA #### [facility] ([id number]) [address] [place] [address] 00853 MCH (RBC) [Entitic mass] 32.6 pg Normal 27-34 [facility] Comment on above: Performed By: #### Diamante MCDANIEL, , CBCA #### [facility] ([id number]) [address] [place] [address] [place] [address] MCHC (RBC) [Mass/Vol] 34.6 g/dL Normal 32-[address] [facility] Comment on above: Performed By: #### Diamante MCDANIEL, , CBCA #### [facility] ([id number]) [address] [place] [address] 94340 MCV (RBC) [Entitic vol] 95 fL Normal 80-100 [facility] Comment on above: Performed By: #### Diamante MCDANIEL, , CBCA #### [facility] ([id number]) [address] [place] [address] 06025 Monocytes (Bld) [#/Vol] 0.6 10*3/uL Normal 0-0.9 [facility] Comment on above: Performed By: #### B VIOLETA, , CBCA #### [facility] ([id number]) [address] [place] [address] 18145 Monocytes/100 WBC (Bld) 8.9 % Normal [facility] Comment on above: Performed By: #### Diamante MCDANIEL, , CBCA #### [facility] ([id number]) [address] [place] [address] 53522 Neutrophils/100 WBC (Bld) 86.2 % Normal [facility] Comment on above: Performed By: #### Diamante MCDANIEL, , CBCA #### [facility] ([id number]) [address] [place] [address] 89781 Platelet mean volume (Bld) [Entitic vol] 10.1 fL Normal 7-12 [facility] Comment on above: Performed By: #### Diamante MCDANIEL, , CBCA #### [facility] ([id number]) [address] [place] [address] 02137 Platelets (Bld) [#/Vol] 118 10*3/uL Low 150-450 [facility] Comment on above: Result Comment: PLAT ELETS REVIEWED Performed By: #### Diamante MCDANIEL, , CBCA #### [facility] ([id number]) [address] [place] [address] 77012 RBC COUNT 3.54 X10E12/L Low 3.80-5.20 [facility] Comment on above: Performed By: #### Diamante MCDANIEL, , CBCA #### [facility] ([id number]) [address] [place] [address] 94353 WBC (Bld) [#/Vol] 6.9 10*3/uL Normal 4.0-11.0 [facility] Comment on above: Performed By: #### B VIOLETA, , CBCA #### [facility] ([id number]) [address] [place] [address] 35412 HCG ( test) Ql (U)o n 09-16-2023 Beta HCG ( test) Ql (U) Positive Abnormal NEG [facility] Comment on above: Performed By: #### 2 106-3 #### [facility] ([id number]) [address] [place] [address] 38001 HCG.beta subunit IA 3rd IS Q non 09-16-2023 HCG.beta subunit Qn 584000 m[IU]/mL Normal [facility] Comment on above: Result Comment: NEW [...] By: #### B VIOLETA, , CBCA #### [facility] ([id number]) [address] [place] [address] 60292 SARS/FLU A+B/RSV by NAAT/Mol ecularon 09-16-2023 SARS/FLU [...] operators who are performing tests using either Tier 3 or Burstly systems and is limited to laboratories that [...] repeat. Fact Sheet for Healthcare Providers: https://www.fda.gov/ media/557675/downloa d Fact Sheet for Patients: https://www.fda.gov/ media/717330/downloa d [facility] Comment on above: Performed By: #### C OVFLR #### [facility] ([id number]) [address] [place] [address] 57172 URN MACROSCOPIC NURon 2023 BILIRUBIN EMILY Negative Normal NEG [facility] Comment on above: Performed By: #### N UM #### [facility] ([id number]) [address] [place] [address] [place] [address] BLOOD/HGB EMILY Trace Abnormal NEG [facility] Comment on above: Performed By: #### N UM #### [facility] ([id number]) [address] [place] [address] [place] [address] GLUCOSE EMILY Negative Normal NEG [facility] Comment on above: Performed By: #### N UM #### [facility] ([id number]) [address] [place] [address] [place] [address] KETONES EMILY >=160 Abnormal NEG [facility] Comment on above: Performed By: #### N UM #### [facility] ([id number]) [address] [place] [address] [place] [address] LEUKOCYTE ESTERASE EMILY Small Abnormal NEG [facility] Comment on above: Performed By: #### N UM #### [facility] ([id number]) [address] [place] [address] [place] [address] NITRITE EMILY Negative Normal NEG [facility] Comment on above: Performed By: #### N UM #### [facility] ([id number]) [address] [place] [address] [place] [address] PH EMILY 5.5 Normal 5.0-8.5 [facility] Comment on above: Performed By: #### N UM #### [facility] ([id number]) [address] [place] [address] [place] [address] PROTEIN EMILY Negative Normal NEG [facility] Comment on above: Performed By: #### N UM #### [facility] ([id number]) [address] [place] [address] [place] [address] SPECIFIC GRAVITY EMILY >=1.030 Normal 1.003-1.035 [facility] Comment on above: Performed By: #### N UM #### [facility] ([id number]) [address] [place] [address] UROBILINOGEN EMILY 0.2 eu/dL Normal <1.1 [facility] Comment on above: Performed By: #### N UM #### [facility] ([id number]) [address] [place] [address] 48555 US OB < 14 WEEKS EARLYon US [...] Marissa Wilburn MD 12/02/22 Final result Normal [facility] XR FOOT LEFT (MIN 3 VIEWS)on [...] Marissa Wilburn MD 12/02/22 Final result Normal [facility] ANTISTREPTOLYSIN O AB (ASO)o n 10-12-2022 Antistreptolysin O Ab 115.4 IU/mL Normal 0.0-200.0 [facility] Comment on above: Performed By: #### A SOAB #### [facility] [address] [place] [address] Dr. Jayla Sapp CBC AUTO DIFFon 10-11-2022 BASO # 0.0 103/ul Normal 0.0-0.1 [facility] Comment on above: Performed By: #### C BC #### [facility] [address] [place] [address] Dr. Jayla Sapp Basophils/100 WBC (Bld) 0.4 % Normal 0.2-2.[address] [facility] Comment on above: Performed By: #### C BC #### [facility] [address] [place] [address] Dr. Jayla Sapp EO # 0.0 103/ul Normal 0.0-0.7 [facility] Comment on above: Performed By: #### C BC #### [facility] [address] [place] [address] Dr. Jayla Sapp Eosinophils/100 WBC (Bld) 0.4 % Critically low 0.9-7.0 [facility] Comment on above: Performed By: #### C BC #### [facility] [address] [place] [address] Dr. Jayla Sapp Erythrocyte distribution width (RBC) [Ratio] 12.5 % Normal 11.0-15.0 [facility] Comment on above: Performed By: #### C BC #### [facility] [address] [place] [address] Dr. Jayla Sapp Hematocrit (Bld) [Volume fraction] 37.0 % Normal 36.0-48.0 [facility] Comment on above: Performed By: #### C BC #### [facility] [address] [place] [address] Dr. Jayla Sapp Hemoglobin (Bld) [Mass/Vol] 12.3 g/dL Normal 12.0-16.0 [facility] Comment on above: Performed By: #### C BC #### [facility] [address] [place] [address] Dr. Jayla Sapp IG # 0.05 10e3/ul Critically high 0.00-0.03 [facility] Comment on above: Performed By: #### C BC #### [facility] [address] [place] [address] Dr. Jayla Sapp IG % 0.5 % Normal 0.0-0.5 [facility] Comment on above: Performed By: #### C BC #### [facility] [address] [place] [address] Dr. Jayla Sapp LYMPH # 1.4 103/ul Normal 1.2-3.8 [facility] Comment on above: Performed By: #### C BC #### [facility] [address] [place] [address] Dr. Jayla Sapp Lymphocytes/100 WBC (Bld) 14.6 % Critically low 20.5-60.0 [facility] Comment on above: Performed By: #### C BC #### [facility] [address] [place] [address] Dr. Jayla Sapp MANUAL DIFF REQ NO Normal [facility] Comment on above: Performed By: #### C BC #### [facility] [address] [place] [address] Dr. Jayla Sapp MCH (RBC) [Entitic mass] 30.8 pg Normal 26.7-34.0 [facility] Comment on above: Performed By: #### C BC #### [facility] [address] [place] [address] Dr. Jayla Sapp MCHC (RBC) [Mass/Vol] 33.2 g/dL Normal 29.9-35.2 [facility] Comment on above: Performed By: #### C BC #### [facility] [address] [place] [address] Dr. Jayla Sapp MCV (RBC) [Entitic vol] 92.5 fL Normal 81.0-99.[address] [facility] Comment on above: Performed By: #### C BC #### [facility] [address] [place] [address] Dr. Jayla Sapp MONO # 0.8 103/ul Normal 0.3-0.8 [facility] Comment on above: Performed By: #### C BC #### [facility] [address] [place] [address] Dr. Jayla Sapp Monocytes/100 WBC (Bld) 8.1 % Normal 1.7-12.[address] [facility] Comment on above: Performed By: #### C BC #### [facility] [address] [place] [address] Dr. Jayla Sapp NEUT # 7.2 103/ul Critically high 1.4-6.5 [facility] Comment on above: Performed By: #### C BC #### [facility] [address] [place] [address] Dr. Jayla Sapp Neutrophils/100 WBC (Bld) 76.0 % Critically high 43.0-75.0 [facility] Comment on above: Performed By: #### C BC #### [facility] [address] [place] [address] Dr. Jayla Sapp Platelet mean volume (Bld) [Entitic vol] 11.4 fL Normal 9.5-13.5 [facility] Comment on above: Performed By: #### C BC #### [facility] [address] [place] [address] Dr. Jayla Sapp PLT 187 103/ul Normal 150-450 [facility] Comment on above: Performed By: #### C BC #### [facility] [address] [place] [address] Dr. Jayla Sapp RBC 4.00 106/ul Critically low 4.20-5.40 [facility] Comment on above: Performed By: #### C BC #### [facility] [address] [place] [address] Dr. Jayla Sapp WBC 9.5 103/ul Normal 4.0-11.0 [facility] Comment on above: Performed By: #### C BC #### [facility] [address] [place] [address] Dr. Jayla Sapp MONOon 10-11-2022 Monocytes (Bld) [#/Vol] Negative Normal NEGATIVE T [facility] Comment on above: Performed By: #### M CASSIDY #### [facility] [address] [place] [address] Dr. Jayla Sapp Covid-19 PCR (CVDTBH)on 04-20 SARS-CoV-2 (COVID-19) RNA MASSIMO+probe Ql (Unsp spec) Not detected Normal NOT DETECTED [facility] Comment on above: Result Comment: This test is not yet approved or cleared by the [place] FDA. When there are no FDA-approved or cleared tests available, and other criteria are met, FDA can make tests available under an emergency access mechanism called an Emergency Use Authorization (EUA). The EUA for this test is supported by the Security Operations Specialist of Health and Human Service's (HHS's) declaration [...] SARS-CoV-2. Performed By: #### C VDTB #### [facility] [address] [place] [address] Dr. Jayla Sapp INFLUENZA A AND B [facility] 05-08 [facility] SEE BELOW Normal [facility] Comment on above: Result Comment: Nega tive for Flu A protein angiten. Infection due to Flu A cannot be ruled out. Flu A angiten in the sample may be below the detection limit of the test. Performed By: #### I NFLUAB #### [facility] [address] [place] [address] Dr. Jayla Sapp [facility] SEE BELOW Normal [facility] Comment on above: Result Comment: Nega tive for Flu B protein antigen. Infection due to Flu B cannot be ruled out. Flu B antigen in the sample may be below the detection limit of the test. Performed By: #### I NFLUAB #### [facility] [address] [place] [address] Dr. Jayla Sapp INFLUENZA A AG Negative Normal NEGATIVE SEE COMMENT [facility] Comment on above: Performed By: #### I NFLUAB #### [facility] [address] [place] [address] Dr. Jayla Sapp INFLUENZA B AG Negative Normal NEGATIVE SEE COMMENT [facility] Comment on above: Performed By: #### I NFLUAB #### [facility] [address] [place] [address] Dr. Jayla aSpp INTERNAL CONTROLS Within Normal Limits Normal Wi thin Normal Limits [facility] Comment on above: Performed By: #### I NFLUAB #### [facility] [address] [place] [address] Dr. Jayla Sapp CBC auto differentialOrdered By: Tomasa Padgett on 05-01-2021 Absolute Eos # 0.00 [facility] Work Phone: Absolute Immature Granulocyte 0.26 [facility] Work Phone: Absolute Lymph # 2.05 [facility] Work Phone: Absolute [place]air # 0.77 [facility] Work Phone: Basophils (Bld) [#/Vol] 0.00 10*3/uL [employer] Work Phone: Basophils/100 WBC (Bld) 0 % 0 - 2 % [facility] Work Phone: Differential Type NOT REPORTED [facility] Phone: Eosinophils/100 WBC (Bld) 0 % Low 1 - 4 % [employer] Phone: Hematocrit (Bld) [Volume fraction] 34.1 % Low 36.3 - 47.1 % [employer] Phone: Hemoglobin.gastrointest inal spec 1 Ql (Stl) 11.2 g/dL Low 11.9 - 15.1 g/dL [employer] Phone: Immature granulocytes/100 WBC (Bld) 2 % High 0 [employer] Phone: Interpretation and review of laboratory results Abnormal [employer] Phone: Lymphocytes/100 WBC (Bld) 16 % Low 24 - 43 % [employer] Phone: MCH (RBC) [Entitic mass] 32.4 pg 25.2 - 33.5 pg [employer] Phone: MCHC (RBC) [Mass/Vol] 32.8 g/dL 28.4 - 34.8 g/dL [employer] Phone: MCV (RBC) [Entitic vol] 98.6 fL 82.6 - 102.9 fL [employer] Work Phone: Monocytes/100 WBC (Bld) 6 % 3 - 12 % M [facility] Work Phone: Morphology Vj (Bld) [Interp] Platelet clumps present, count appears adequate. [employer] Work Phone: NRBC Automated 0.0 0.0 per 100 WBC [employer] Phone: Platelet distribution width (Bld) [Ratio] 12.7 % 11.8 - 14.4 % [employer] Phone: Platelet Estimate NOT REPORTED [employer] Phone: Platelet mean volume (Bld) [Entitic vol] NOT REPORTED 8.1 - 13.5 fL [employer] Work Phone: Platelets (Bld) [#/Vol] See Reflexed IPF Result [employer] Phone: RBC (Bld) [#/Vol] 3.46 10*6/uL Low 3.95 - 5.1 1 m/uL [employer] Work Phone: RBC (Bld) [#/Vol] NOT REPORTED [employer] Work Phone: Segmented neutrophils/100 WBC (Bld) 76 % High 36 - 65 % [employer] Work Phone: Segs Absolute 9.72 High [employer] Work Phone: WBC (Bld) [#/Vol] 12.8 10*3/uL High [employer] Work Phone: WBC (Bld) [#/Vol] NOT REPORTED [employer] Work Phone: [employer] Work Phone: CBC with Diffon 05-01-2021 Abs. Basophil 0.00 k/uL Normal 0.0-0.2 [facility] Comment on above: Performed By: #### I PF, CDP #### [facility] [address] [place] [address] Dr. Renae, [place] [id number] Tactical Debriefer: Jose Francisco Trotter MD Abs.Imm.Granulocyte 0.26 k/uL Normal 0.00-0.30 [facility] Comment on above: Performed By: #### I PF, CDP #### [address] Renae, [id number] Tactical Debriefer: Jose Francisco Trotter MD Abs.Neutrophil (Seg) 9.72 k/uL High 1.50-8.10 [facility] Comment on above: Performed By: #### I PF, CDP #### [address] [place] [address] Tactical Debriefer: Jose Francisco Trotter MD Basophils/100 WBC (Bld) 0 % Normal 0-[address] [facility] Comment on above: Performed By: #### I PF, CDP #### [address] [place] [address] Tactical Debriefer: Jose Francisco Trotter MD Eosinophils (Bld) [#/Vol] 0.00 10*3/uL Normal 0.00-0.44 [facility] Comment on above: Performed By: #### I PF, CDP #### [address] Renae, [place] [address] Tactical Debriefer: Jose Francisco Trotter MD Eosinophils/100 WBC (Bld) 0 % Low 1-4 [facility] Comment on above: Performed By: #### I PF, CDP #### [address] Renae, [id number] Tactical Debriefer: Jose Francisco Trotter MD Immature granulocytes/100 WBC (Bld) 2 % High 0 [facility] Comment on above: Performed By: #### I PF, CDP #### [address] [place] [id number] Tactical Debriefer: Jose Francisco Trotter MD Lymphocytes (Bld) [#/Vol] 2.05 10*3/uL Normal 1.10-3.70 [facility] Comment on above: Performed By: #### I PF, CDP #### [facility] [address] [place] [address] [place] [address] Tactical Debriefer: Jose Francisco Trotter MD Lymphocytes/100 WBC (Bld) 16 % Low 24-43 [facility] Comment on above: Performed By: #### I PF, CDP #### [facility] [address] [place] [address] [place] [address] Tactical Debriefer: Jose Francisco Trotter MD Monocytes (Bld) [#/Vol] 0.77 10*3/uL Normal 0.10-1.20 [facility] Comment on above: Performed By: #### I PF, CDP #### [address] Renae, [place] [address] Tactical Debriefer: Jose Francisco Trotter MD Monocytes/100 WBC (Bld) 6 % Normal 3-12 M [facility] Comment on above: Performed By: #### I PF, CDP #### [address] [place] [address] Tactical Debriefer: Jose Francisco Trotter MD Morphology Vj (Bld) [Interp] Platelet clumps present, count appears adequate. Normal [facility] Comment on above: Performed By: #### I PF, CDP #### [facility] [address] [place] [address] Dr. Renae, [id number] Tactical Debriefer: Jose Francisco Trotter MD Neutrophil (Seg) 76 % High 36-65 [facility] Comment on above: Performed By: #### I PF, CDP #### [address] Renae, [id number] Tactical Debriefer: Jose Francisco Trotter MD Erythrocyte distribution width (RBC) [Ratio] 12.7 % Normal 11.8-14.4 [facility] Comment on above: Performed By: #### I PF, CDP #### [address] Renae, [place] [id number] Tactical Debriefer: Jose Francisco Trotter MD Hematocrit (Bld) [Volume fraction] 34.1 % Low 36.3-47.1 [facility] Comment on above: Performed By: #### I PF, CDP #### [address] [place] [id number] Tactical Debriefer: Jose Francisco Trotter MD Hemoglobin (Bld) [Mass/Vol] 11.2 g/dL Low 11.9-15.1 [facility] Comment on above: Performed By: #### I PF, CDP #### [address] [place] [id number] Tactical Debriefer: Jose Francisco Trotter MD MCH (RBC) [Entitic mass] 32.4 pg Normal 25.2-33.5 [facility] Comment on above: Performed By: #### I PF, CDP #### [address] [place], [place] [id number] Tactical Debriefer: Jose Francisco Trotter MD MCHC (RBC) [Mass/Vol] 32.8 g/dL Normal 28.4-34.8 [facility] Comment on above: Performed By: #### I PF, CDP #### [address] [place] [id number] Tactical Debriefer: Jose Francisco Trotter MD MCV (RBC) [Entitic vol] 98.6 fL Normal 82.6-102.9 M [facility] Comment on above: Performed By: #### I PF, CDP #### [address] [place] [address] Tactical Debriefer: Jose Francisco Trotter MD NRBC Automated 0.0 per 100 WBC Normal 0.0 [facility] Comment on above: Performed By: #### I PF, CDP #### [address] [place] [address] Tactical Debriefer: Jose Francisco Trotter MD Platelet Count See Reflexed IPF Result Normal 138-453 [facility] Comment on above: Performed By: #### I PF, CDP #### [facility] [address] [place] [address] Tactical Debriefer: Jose Francisco Trotter MD RBC (Bld) [#/Vol] 3.46 10*6/uL Low 3.95-5.11 [facility] Comment on above: Performed By: #### I PF, CDP #### [facility] [address] [place] [address] Tactical Debriefer: Jose Francisco Trotter MD WBC (Bld) [#/Vol] 12.8 10*3/uL High 3.5-11.3 [facility] Comment on above: Performed By: #### I PF, CDP #### [facility] [address] [place] [address] Tactical Debriefer: Jose Francisco Trotter MD Auto Diff Performed NOT REPORTED Normal [facility] Comment on above: Performed By: #### I PF, CDP #### [facility] [address] [place] [address] Tactical Debriefer: Jose Francisco Trotter MD MPV NOT REPORTED Normal 8.1-13.5 [facility] Comment on above: Performed By: #### I PF, CDP #### [facility] [address] [place] [address] Tactical Debriefer: Jose Francisco Trotter MD Platelet Estimate NOT REPORTED Normal [facility] Comment on above: Performed By: #### I PF, CDP #### [facility] [address] [place], [place] [id number] Tactical Debriefer: Jose Francisco Trotter MD RBC morphology finding Nom (Bld) NOT REPORTED Normal [facility] Comment on above: Performed By: #### I PF, CDP #### [facility] [address] [place], [place] [id number] Tactical Debriefer: Jose Francisco Trotter MD WBC Morphology NOT REPORTED Normal [facility] Comment on above: Performed By: #### I PF, CDP #### [facility] [address] [place], [place] [id number] Tactical Debriefer: Jose Francisco Trotter MD Immature Platelet FractionOr dered By: Tomasa Padgett on 05-01-2021 Interpretation and review of laboratory results Abnormal [facility] Phone: Platelet, Fluorescence 104 Low Me [facility] [employer] Phone: Platelet, Immature Fraction 21.3 % High 1.1 - 10.3 % [facility] Phone: [facility] Phone: PLT, Immature Fract.on 05-01 Platelet, Fluoresc. 104 k/uL Low 138-453 [facility] Comment on above: Performed By: #### I PF, CDP #### [address] [place], [place] [id number] Tactical Debriefer: Jose Francisco Trotter MD PLT, Immature Fract. 21.3 % High 1.1-10.3 [facility] Comment on above: Performed By: #### I PF, CDP #### [address] [place], [place] [id number] Tactical Debriefer: Jose Francisco Trotter MD GBS, External ResultOrdered By: Historical Provider on 03-28-2021 GBS, External Result Negative [facility] Phone: Comment on above: verified CK RN Outside lab see results [facility] Phone: [facility] Phone: HIV ScreenOrdered By: Histor ical Provider on 10-14-2020 HIV Ag/Ab NR [facility] Phone: Comment on above: verified CK RN N. GONORRHOEAE CULTUREOrdere d By: Historical Provider on 10-14-2020 Culture, Gonorrhoeae Negative [employer] Work Phone: Comment on above: verified SYMONE RN No Panel InformationOrdered By: Historical Provider on 10-14-2020 Outside lab see results [employer] Work Phone: [employer] Work Phone: [employer] Work Phone: PROFILE IOrdered By : Historical Provider on 10-14-2020 ABO/Rh O+ [employer] Phone: Comment on above: verified SYMONE RN Hepatitis B Surface [facility] Work Phone: Comment on above: verified SYMONE RN Rubella virus IgG Ql (S) IMM [employer] Work Phone: Comment on above: verified SYMONE RN T. pallidum, IgG NR [facility] Work Phone: Comment on above: verified SYMONE RN Vital Signs Date Time Vital Sign Value Performing Clinician Yong calvo 05-03-2021 08:15-0400 Diastolic blood pressure 56 mm[Hg] Tomasa Encisoo RUG SCRATCHER - CNM Work Phone: [employer] Phone: 05-03-2021 08:15-0400 Heart rate 62 /min Tomasa Padgett RUG SCRATCHER - CNM Work Phone: [employer] Work Phone: 05-03-2021 08:15-0400 Respiratory rate 16 /min Tomasa Zariao RUG SCRATCHER - CNM Work Phone: [employer] Work Phone: 05-03-2021 08:15-0400 Systolic blood pressure 118 mm[Hg] Tomasa Zariao RUG SCRATCHER - CNM Work Phone: [employer] Work Phone: 05-03-2021 00:09-0400 Body temperature 98.01 [degF] Tomasa Floro RUG SCRATCHER - CNM Work Phone: [facility] Work Phone: Encounters Encounter Date Encounter Type [...] 09-16-2023 End: 09-16-2023 Emergency department patient visit [facility] Start: 09-07-2023 End: 09-07-2023 ambulatory TOMASA L FLORO Not Available Start: 09-05-2023 End: 09-05-2023 ambulatory TOMASA L FLORO Not Available Start: 12-02-2022 End: 12-02-2022 Emergency department patient visit SIMIN HARLEY [facility] Start: 10-11-2022 End: 10-12-[address] SIMIN HARLEY . Facility:[facility] Start: 05-08-2022 End: 05-08-[address] SIMIN HARLEY . Facility:[facility] Start: 05-01-2021 End: 05-03-2021 Evaluation and management of inpatient SIMIN HAR[facility] Start: 05-01-2021 End: 05-03-2021 Evaluation and management of inpatient Tomasa Padgett RUG SCRATCHER - CNM Work Phone: [facility] Labor and Delivery Procedures Date Procedure Procedure Detail Performing Clinician Start: 05-01-2021 Blood count complete auto&auto difrntl wbc Tomasa Padgett RUG SCRATCHER - CN Work Phone: Start: 05-01-2021 IMMATURE PLATELET FRACTION Tomasa Padgett RUG SCRATCHER - CN Work Phone: Start: 03-28-2021 GBS, EXTERNAL RESULT Hi storical Provider Start: 10-14-2020 Antibody hiv-1&hiv-2 single result Historical Provider Start: 10-14-2020 Chlamydia culture George Padgett RUG SCRATCHER - CN Work Phone: Comment on above: verified CK RN Start: 10-14-2020 [employer] neisseria gonorrhoeae Historical Provider Plan of Treatment Date Care Activity Detail Author Start: 10-17-2023 End: 10-17-2023 Patient encounter procedure 10/17/2023 4:30 PM EST Routine [facility] [address] [place] [address] Tomasa Padgett CNM [address] [place], [place] [id number] [facility] Start: 04-20-2021 Influenza vaccination Flu vaccine (# 1) [facility] Work Phone: Start: 2007 COVID-19 Vaccine (1) COVID-19 Vaccin e (1) [facility] Work Phone: Immunizations Immunization Date Immunization Notes Care Provider Fa cility 05-01-2021 diphtheria, tetanus toxoids and acellular pertussis vaccine, unspecified formulation Tomasa Padgett RUG SCRATCHER - [facility] Work Phone: [employer] Work Phone: 05-01-2021 measles, mumps and rubella virus vaccine Tomasa Padgett RUG SCRATCHER - CN Work Phone: [employer] Work Phone: Payers Date Payer Category Payer Private Health Insurance JOSE HAINES [id number] 2023-Present [address] [place] [address] [id number] 2023 Private Health Insurance [id number] 2023 Private Health Insurance [id number] 2022 Medicaid [employer] [place] [id number] 2022-Present [address] [place] [address] [id number] 2021 Private Health Insurance [id number] 1995 Unknown [id number] 2.16.840.1.368479.3.579.2. 173 1995 Unknown [id number] 2.16.840.1.363483.3.579.2. 593 1995 Unknown [id number] 2.16.840.1.567047.3.579.2. 593 1995 Unknown [id number] 2.16.840.1.085161.3.579.2. 754 1995 Unknown [id number] 2.16.840.1.520973.3.579.2. 1286 1995 Unknown [id number] 2.16.840.1.350201.3.579.2. 1259 1995 Unknown [id number] 2.16.840.1.956892.3.579.2. 1259 1995 Unknown [id number] 2.16.840.1.376081.3.579.2. 9 1995 Unknown [id number] 2.16.840.1.500779.3.579.2. 9 1995 Unknown [id number] 2.16.840.1.909605.3.579.2. 9 1995 Unknown [id number] 2.16.840.1.445027.3.579.2. 9 1995 Unknown [id number] 2.16.840.1.986546.3.579.2. 1258 1995 Unknown [id number] 2.16.840.1.470898.3.579.2. 9 1995 Unknown [id number] 2.16.840.1.029047.3.579.2. 9 1995 Unknown [id number] 2.16.840.1.102029.3.579.2. 9 1995 Unknown [id number] 2.16.840.1.532797.3.579.2. 9 1995 Unknown [id number] 2.16.840.1.912250.3.579.2. 9 1995 Unknown [id number] 2.16.840.1.063579.3.579.2. 9 1995 Unknown [id number] 2.16.840.1.101807.3.579.2. 1259 1959 Unknown [id number] 1.2.840.618731.1.13.239.2. 7.3.499586.315 Social History Date Type Detail Facility Start: 05-01-2021 Tobacco smoking stat [facility] Former smoker [employer] Work Phone: Start: 05-01-2021 End: 09-05-2023 Tobacco use and exposure Never used [employer] Start: 05-01-2021 Alcohol intake Ex-drinker (finding) [facility] [employer] Work Phone: Start: 1995 Sex Assigned At Not on file M duran [facility] [employer] Work Phone: Start: 09-05-2023 [facility] Start: 09-05-2023 [...] er Note Pt requesting refill Zofran to [facility]. Also questions if envelope is ready with gender reveal. Her call back is [phone]. Thank you! [facility] Note 2023 Telephone Encounter - Vicente Wilkes - 2023 12:45 PM EST Note Date & Type Note Facility 2023 Miscellaneous Notes Formattin g of this note might be different from the original. Pt requesting refill Zofran to [facility]. Also questions if envelope is ready with gender reveal. Her call back is [phone]. Thank you! documented in this encounter [facility] [...] patient on [facility] documented in this encounter [employer] Phone: Evaluation note Note Date & Type Note Facility Evaluation note Diagnosis Term Normal delivery documented in this encounter [employer] Phone: Evaluation note Note Date & Type Note Facility Evaluation note Diagnosis Nausea and vomiting, unspecified vomiting type documented in this encounter [facility] Hospital Discharge instructions Instructions Note Date & Type Note Facility Hospital Discharge instructions Gemini Conde RN - 05/03/2021 Follow-up with your OB doctor as specified. [facility] OB Department phone: Dr. Annetta Lyon CNM Dr. Carmela Acosta CNM [address] [facility] [address] [facility] [address] [place] Carmela Walters CN [address] [facility] [address] [phone] Evelyn Padgett, MSN, RUG SCRATCHER, CNM [facility] [address] [facility] [address] [address] Manrique [address] [facility] [address] Berenice Maldonado CNM [address] [place] [address] Vera Wright CNM [address] [place] [address] [place] [address] [phone] DIET Eat a well balanced diet focusing on foods high in fiber and protein. Drink plenty of fluids especially water. To avoid constipation you may take a mild stool softener as recommended by your doctor or cyber defense incident responder. ACTIVITY Gradually increase your activity. Resume exercise regimen only after advice by your doctor or cyber defense incident responder. Avoid lifting anything heavier than a gallon of milk for SIX weeks. Avoid driving until your doctor or cyber defense incident responder has given their approval. Rise slowly from [...] medications as recommended by your doctor or cyber defense incident responder for pain If you develop a warm, [...] vitamins as directed by your doctor or cyber defense incident responder. Refer to the booklet in the folder/binder for more information. If you feel you need more assistance or have questions, please call Rossy Hedrick IBCLC, contamination consultant, at or the OB department to [...] in your calf. documented in this encounter [employer] Work Phone: Advance Directives No Advanced Directives [...] Diagnoses Term Tomasa Padgett APRN - CN [address] [place] [address] [facility] [address] [employer] Reason Onset Date Comments Med Refill 2023 [...] - Reason: Loss of IV access)2099 (Due) Ppjojvi-Lhuuhp-Oygdy Pertussis (BOOSTRIX) injection 0.5 mL 0.5 mL, [...] Post Delivery 1145 (Rate/Dose Change - Provider: Richelle Armas RN) sodium chloride flush 0.9 % [...] DATE CREATED AUTHOR AUTHOR'S ORGANIZ ATION 12/03/2022 [facility] DATE CREATED AUTHOR AUTHOR'S ORGANIZ ATION 09/16/2023 [facility] DATE CREATED AUTHOR AUTHOR'S ORGANIZ ATION 04/04/2024 [facility] FOR RECORDS PERTAINING TO PATIENTS WHO ARE [...] BE BASED ON THE PRIMARY CLINICAL RECORDS. [facility] provides no warranty or guarantee of the accuracy or completeness of information in this document.
--- OUTSIDE RECORDS SUMMARY | 2024-04-05 10:12 | XMS_ITS | CCD ---
Author Organization [facility] Care Team Providers Care Microfiche Camera Operator Name Role Phone Simin Harley MD Primary Care Provider [phone] SIMIN HARLEY Primary Care Unavailable FLORO, TOMASA [...] Care Unavailable ANTIONETTE PENA Attending Unavailable SERVICES, [facility] Primary Care PAMELA Pryor Attending Unavailable [...] (1 source) Start: 05-01-2021 witch laila-gl ycerin ([facility]) pad Completed/Discontinued Medications Medication Drug Class(es) [...] 3050 gm / 6 lbs, 11 oz ([id number]) [place] Normal: 3256 gm (7602-0233 gm) [place] Wt%: 31% for 38.1 wks [...] Anion gap [Moles/Vol] 7 mmol/L Normal 5-15 [facility] Comment on above: Performed By: #### B , , CBCA #### [facility] ([id number]) [address] [place] [address] 72864 Calcium [Mass/Vol] 8.2 mg/dL Low 8.5-10.5 [facility] Comment on above: Performed By: #### B VIOLETA, , CBCA #### [facility] ([id number]) [address] [place] [address] 07997 Chloride [Moles/Vol] 103 mmol/L Normal 98-109 [facility] Comment on above: Performed By: #### B VIOLETA, , CBCA #### [facility] ([id number]) [address] [place] [address] 94141 CO2 [Moles/Vol] 22 mmol/L Normal 22-32 [facility] Comment on above: Performed By: #### B VIOLETA, , CBCA #### [facility] ([id number]) [address] [place] [address] 63614 Creatinine [Mass/Vol] 0.49 mg/dL Normal 0.40-1.00 [facility] Comment on above: Result Comment: METH OD TRACEABLE TO IDMS STANDARD Performed By: #### B VIOLETA, , CBCA #### [facility] ([id number]) [address] [place] [address] 49767 eGFR (CKD-EPI) NON-RACE DEPENDENT >90 Normal >59 [facility] Comment on above: Result Comment: Reported eGFR is based on the CKD-EPI 2020 equation that does not use a race coefficient. Performed By: #### B VIOLETA, , CBCA #### [facility] ([id number]) [address] [place] [address] 71760 Glucose [Mass/Vol] 97 mg/dL Normal 65-99 [facility] Comment on above: Performed By: #### Diamante MCDANIEL, , CBCA #### [facility] ([id number]) [address] [place] [address] 42309 Potassium [Moles/Vol] 3.8 mmol/L Normal 3.5-5.0 [facility] Comment on above: Performed By: #### Diamante MCDANIEL, , CBCA #### [facility] ([id number]) [address] [place] [address] 40314 Sodium [Moles/Vol] 132 mmol/L Low 134-146 [facility] Comment on above: Performed By: #### Diamante MCDANIEL, , CBCA #### [facility] ([id number]) [address] [place] [address] 13089 Urea nitrogen [Mass/Vol] 10 mg/dL Normal 5-23 [facility] Comment on above: Performed By: #### Diamante MCDANIEL, , CBCA #### [facility] ([id number]) [address] [place] [address] 10714 CBC AND AUTO DIFFon 01-28-20 24 ABSOLUTE BASOPHIL 0.0 X10E9/L Normal 0.0-0.2 [facility] Comment on above: Performed By: #### B VIOLETA, , CBCA #### [facility] ([id number]) [address] [place] [address] 83631 ABSOLUTE NEUTROPHIL 5.9 X10E9/L Normal 1.5-6.6 [facility] Comment on above: Performed By: #### Diamante MCDANIEL, , CBCA #### [facility] ([id number]) [address] [place] [address] 33148 Basophils/100 WBC (Bld) 0.2 % Normal [facility] Comment on above: Performed By: #### Diamante MCDANIEL, , CBCA #### [facility] ([id number]) [address] [place] [address] 49792 Eosinophils (Bld) [#/Vol] 0.0 10*3/uL Normal 0.0-0.4 [facility] Comment on above: Performed By: #### Diamante MCDANIEL, , CBCA #### [facility] ([id number]) [address] [place] [address] 17074 Eosinophils/100 WBC (Bld) 0.1 % Normal [facility] Comment on above: Performed By: #### Diamante MCDANIEL, , CBCA #### [facility] ([id number]) [address] [place] [address] 33200 Erythrocyte distribution width (RBC) [Ratio] 13.3 % Normal 11.5-15.0 [facility] Comment on above: Performed By: #### Diamante MCDANIEL, , CBCA #### [facility] ([id number]) [address] [place] [address] 35464 Hematocrit (Bld) [Volume fraction] 33.5 % Low 35-47 [facility] Comment on above: Performed By: #### B VIOLETA, , CBCA #### [facility] ([id number]) [address] [place] [address] 75386 Hemoglobin (Bld) [Mass/Vol] 11.6 g/dL Low 11.7-15.5 [facility] Comment on above: Performed By: #### Diamante MCDANIEL, , CBCA #### [facility] ([id number]) [address] [place] [address] 14620 Lymphocytes (Bld) [#/Vol] 0.3 10*3/uL Low 1.0-3.5 [facility] Comment on above: Performed By: #### Diamante MCDANIEL, , CBCA #### [facility] ([id number]) [address] [place] [address] 37863 Lymphocytes/100 WBC (Bld) 4.6 % Normal [facility] Comment on above: Performed By: #### Diamante MCDANIEL, , CBCA #### [facility] ([id number]) [address] [place] [address] 47926 MCH (RBC) [Entitic mass] 32.6 pg Normal 27-34 [facility] Comment on above: Performed By: #### Diamante MCDANIEL, , CBCA #### [facility] ([id number]) [address] [place] [address] [place] [address] MCHC (RBC) [Mass/Vol] 34.6 g/dL Normal 32-36 [facility] Comment on above: Performed By: #### Diamante MCDANIEL, , CBCA #### [facility] ([id number]) [address] [place] [address] 55208 MCV (RBC) [Entitic vol] 95 fL Normal 80-100 [facility] Comment on above: Performed By: #### Diamante MCDANIEL, , CBCA #### [facility] ([id number]) [address] [place] [address] 10929 Monocytes (Bld) [#/Vol] 0.6 10*3/uL Normal 0-0.9 [facility] Comment on above: Performed By: #### B VIOLETA, , CBCA #### [facility] ([id number]) [address] [place] [address] 42267 Monocytes/100 WBC (Bld) 8.9 % Normal [facility] Comment on above: Performed By: #### Diamante MCDANIEL, , CBCA #### [facility] ([id number]) [address] [place] [address] 87601 Neutrophils/100 WBC (Bld) 86.2 % Normal [facility] Comment on above: Performed By: #### Diamante MCDANIEL, , CBCA #### [facility] ([id number]) [address] [place] [address] 53067 Platelet mean volume (Bld) [Entitic vol] 10.1 fL Normal 7-12 [facility] Comment on above: Performed By: #### Diamante MCDANIEL, , CBCA #### [facility] ([id number]) [address] [place] [address] 81504 Platelets (Bld) [#/Vol] 118 10*3/uL Low 150-450 [facility] Comment on above: Result Comment: PLAT ELETS REVIEWED Performed By: #### Diamante MCDANIEL, , CBCA #### [facility] ([id number]) [address] [place] [address] 64532 RBC COUNT 3.54 X10E12/L Low 3.80-5.20 [facility] Comment on above: Performed By: #### Diamante MCDANIEL, , CBCA #### [facility] ([id number]) [address] [place] [address] 02356 WBC (Bld) [#/Vol] 6.9 10*3/uL Normal 4.0-11.0 [facility] Comment on above: Performed By: #### B VIOLETA, , CBCA #### [facility] ([id number]) [address] [place] [address] 50718 HCG ( test) Ql (U)o n 09-16-2023 Beta HCG ( test) Ql (U) Positive Abnormal NEG [facility] Comment on above: Performed By: #### 2 106-3 #### [facility] ([id number]) [address] [place] [address] 57737 HCG.beta subunit IA 3rd IS Q non 09-16-2023 HCG.beta subunit Qn 259475 m[IU]/mL Normal [facility] Comment on above: Result Comment: NEW [...] By: #### B VIOLETA, , CBCA #### [facility] ([id number]) [address] [place] [address] 04096 SARS/FLU A+B/RSV by NAAT/Mol ecularon 09-16-2023 SARS/FLU [...] operators who are performing tests using either [employer] or [employer] systems and is limited to laboratories that [...] repeat. Fact Sheet for Healthcare Providers: https://www.fda.gov/ media/078648/downloa d Fact Sheet for Patients: https://www.fda.gov/ media/042379/downloa d [facility] Comment on above: Performed By: #### C OVFLR #### [facility] ([id number]) [address] [place] [address] 11769 URN MACROSCOPIC NURon 2023 BILIRUBIN EMILY Negative Normal NEG [facility] Comment on above: Performed By: #### N UM #### [facility] ([id number]) [address] [place] [address] [place] [address] BLOOD/HGB EMILY Trace Abnormal NEG [facility] Comment on above: Performed By: #### N UM #### [facility] ([id number]) [address] [place] [address] [place] [address] GLUCOSE EMILY Negative Normal NEG [facility] Comment on above: Performed By: #### N UM #### [facility] ([id number]) [address] [place] [address] [place] [address] KETONES EMILY >=160 Abnormal NEG [facility] Comment on above: Performed By: #### N UM #### [facility] ([id number]) [address] [place] [address] [place] [address] LEUKOCYTE ESTERASE EMILY Small Abnormal NEG [facility] Comment on above: Performed By: #### N UM #### [facility] ([id number]) [address] [place] [address] [place] [address] NITRITE EMILY Negative Normal NEG [facility] Comment on above: Performed By: #### N UM #### [facility] ([id number]) [address] [place] [address] [place] [address] PH EMILY 5.5 Normal 5.0-8.5 [facility] Comment on above: Performed By: #### N UM #### [facility] ([id number]) [address] [place] [address] [place] [address] PROTEIN EMILY Negative Normal NEG [facility] Comment on above: Performed By: #### N UM #### [facility] ([id number]) [address] [place] [address] [place] [address] SPECIFIC GRAVITY EMILY >=1.030 Normal 1.003-1.035 [facility] Comment on above: Performed By: #### N UM #### [facility] ([id number]) [address] [place] [address] UROBILINOGEN EMILY 0.2 eu/dL Normal <1.1 [facility] Comment on above: Performed By: #### N UM #### [facility] ([id number]) [address] [place] [address] 29673 US OB < 14 WEEKS EARLYon US [...] Marissa Wilburn MD 12/02/22 Final result Normal [facility] XR FOOT LEFT (MIN 3 [...] Marissa Wilburn MD 12/02/22 Final result Normal [facility] ANTISTREPTOLYSIN O AB (ASO)o n 10-12-2022 Antistreptolysin O Ab 115.4 IU/mL Normal 0.0-200.0 [facility] Comment on above: Performed By: #### A SOAB #### [facility] [address] [place] [address] Dr. Jayla Sapp CBC AUTO DIFFon 10-11-2022 BASO # 0.0 103/ul Normal 0.0-0.1 [facility] Comment on above: Performed By: #### C BC #### [facility] [address] [place] [address] Dr. Jayla Sapp Basophils/100 WBC (Bld) 0.4 % Normal 0.2-2.0 [facility] Comment on above: Performed By: #### C BC #### [facility] [address] [place] [address] Dr. Jayla Sapp EO # 0.0 103/ul Normal 0.0-0.7 [facility] Comment on above: Performed By: #### C BC #### [facility] [address] [place] [address] Dr. Jayla Sapp Eosinophils/100 WBC (Bld) 0.4 % Critically low 0.9-7.0 [facility] Comment on above: Performed By: #### C BC #### [facility] [address] [place] [address] Dr. Jayla Sapp Erythrocyte distribution width (RBC) [Ratio] 12.5 % Normal 11.0-15.0 [facility] Comment on above: Performed By: #### C BC #### [facility] [address] [place] [address] Dr. Jayla Sapp Hematocrit (Bld) [Volume fraction] 37.0 % Normal 36.0-48.0 [facility] Comment on above: Performed By: #### C BC #### [facility] [address] [place] [address] Dr. Jayla Sapp Hemoglobin (Bld) [Mass/Vol] 12.3 g/dL Normal 12.0-16.0 [facility] Comment on above: Performed By: #### C BC #### [facility] [address] [place] [address] Dr. Jayla Sapp IG # 0.05 10e3/ul Critically high 0.00-0.03 [facility] Comment on above: Performed By: #### C BC #### [facility] [address] [place] [address] Dr. Jayla Sapp IG % 0.5 % Normal 0.0-0.5 [facility] Comment on above: Performed By: #### C BC #### [facility] [address] [place] [address] Dr. Jayla Sapp LYMPH # 1.4 103/ul Normal 1.2-3.8 [facility] Comment on above: Performed By: #### C BC #### [facility] [address] [place] [address] Dr. Jayla Sapp Lymphocytes/100 WBC (Bld) 14.6 % Critically low 20.5-60.0 [facility] Comment on above: Performed By: #### C BC #### [facility] [address] [place] [address] Dr. Jayla Sapp MANUAL DIFF REQ NO Normal [facility] Comment on above: Performed By: #### C BC #### [facility] [address] [place] [address] Dr. Jayla Sapp MCH (RBC) [Entitic mass] 30.8 pg Normal 26.7-34.0 [facility] Comment on above: Performed By: #### C BC #### [facility] [address] [place] [address] Dr. Jayla Sapp MCHC (RBC) [Mass/Vol] 33.2 g/dL Normal 29.9-35.2 [facility] Comment on above: Performed By: #### C BC #### [facility] [address] [place] [address] Dr. Jayla Sapp MCV (RBC) [Entitic vol] 92.5 fL Normal 81.0-99.0 [facility] Comment on above: Performed By: #### C BC #### [facility] [address] [place] [address] Dr. Jayla Sapp MONO # 0.8 103/ul Normal 0.3-0.8 [facility] Comment on above: Performed By: #### C BC #### [facility] [address] [place] [address] Dr. Jayla Sapp Monocytes/100 WBC (Bld) 8.1 % Normal 1.7-12.0 [facility] Comment on above: Performed By: #### C BC #### [facility] [address] [place] [address] Dr. Jayla Sapp NEUT # 7.2 103/ul Critically high 1.4-6.5 [facility] Comment on above: Performed By: #### C BC #### [facility] [address] [place] [address] Dr. Jayla Sapp Neutrophils/100 WBC (Bld) 76.0 % Critically high 43.0-75.0 [facility] Comment on above: Performed By: #### C BC #### [facility] [address] [place] [address] Dr. Jayla Sapp Platelet mean volume (Bld) [Entitic vol] 11.4 fL Normal 9.5-13.5 [facility] Comment on above: Performed By: #### C BC #### [facility] [address] [place] [address] Dr. Jayla Sapp PLT 187 103/ul Normal 150-450 [facility] Comment on above: Performed By: #### C BC #### [facility] [address] [place] [address] Dr. Jayla Sapp RBC 4.00 106/ul Critically low 4.20-5.40 [facility] Comment on above: Performed By: #### C BC #### [facility] [address] [place] [address] Dr. Jayla Sapp WBC 9.5 103/ul Normal 4.0-11.0 [facility] Comment on above: Performed By: #### C BC #### [facility] [address] [place] [address] Dr. Jayla Sapp MONOon 10-11-2022 Monocytes (Bld) [#/Vol] Negative Normal NEGATIVE T [facility] Comment on above: Performed By: #### M CASSIDY #### [facility] [address] [place] [address] Dr. Jayla Sapp Covid-19 PCR (CVDTBH)on 04-20 SARS-CoV-2 (COVID-19) RNA MASSIMO+probe Ql (Unsp spec) Not detected Normal NOT DETECTED [facility] Comment on above: Result Comment: This test is not yet approved or cleared by the [place] FDA. When there are no FDA-approved or cleared tests available, and other criteria are met, FDA can make tests available under an emergency access mechanism called an Emergency Use Authorization (EUA). The EUA for this test is supported by the Carburetor Repairer of Health and Human Service's (HHS's) declaration [...] SARS-CoV-2. Performed By: #### C VDTB #### [facility] [address] [place] [address] Dr. Jayla Sapp INFLUENZA A AND B [facility] 05-08 [facility] SEE BELOW Normal [facility] Comment on above: Result Comment: Nega tive for Flu A protein angiten. Infection due to Flu A cannot be ruled out. Flu A angiten in the sample may be below the detection limit of the test. Performed By: #### I NFLUAB #### [facility] [address] [place] [address] Dr. Jayla Sapp [facility] SEE BELOW Normal [facility] Comment on above: Result Comment: Nega tive for Flu B protein antigen. Infection due to Flu B cannot be ruled out. Flu B antigen in the sample may be below the detection limit of the test. Performed By: #### I NFLUAB #### [facility] [address] [place] [address] Dr. Jayla Sapp INFLUENZA A AG Negative Normal NEGATIVE SEE COMMENT [facility] Comment on above: Performed By: #### I NFLUAB #### [facility] [address] [place] [address] Dr. Jayla Sapp INFLUENZA B AG Negative Normal NEGATIVE SEE COMMENT [facility] Comment on above: Performed By: #### I NFLUAB #### [facility] [address] [place] [address] Dr. Jayla Sapp INTERNAL CONTROLS Within Normal Limits Normal Wi thin Normal Limits [facility] Comment on above: Performed By: #### I NFLUAB #### [facility] [address] [place] [address] Dr. Jayla Sapp CBC auto differentialOrdered By: Tomasa Padgett on 05-01-2021 Absolute Eos # 0.00 [employer] [facility] Work Phone: Absolute Immature Granulocyte 0.26 [facility] Work Phone: Absolute Lymph # 2.[address] [facility] Work Phone: Absolute Nash # 0.77 [facility] Work Phone: Basophils (Bld) [#/Vol] 0.00 10*3/uL [employer] [place] Work Phone: Basophils/100 WBC (Bld) 0 % 0 - 2 % [facility] Work Phone: Differential Type NOT REPORTED [facility] Phone: Eosinophils/100 WBC (Bld) 0 % Low 1 - 4 % [employer] Phone: Hematocrit (Bld) [Volume fraction] 34.1 % Low 36.3 - 47.1 % [employer] Phone: Hemoglobin.gastrointest inal spec 1 Ql (Stl) 11.2 g/dL Low 11.9 - 15.1 g/dL [employer] Phone: Immature granulocytes/100 WBC (Bld) 2 % High 0 [employer] Phone: Interpretation and review of laboratory results Abnormal [employer] Phone: Lymphocytes/100 WBC (Bld) 16 % Low 24 - 43 % [employer] Phone: MCH (RBC) [Entitic mass] 32.4 pg 25.2 - 33.5 pg [employer] Phone: MCHC (RBC) [Mass/Vol] 32.8 g/dL 28.4 - 34.8 g/dL [employer] Phone: MCV (RBC) [Entitic vol] 98.6 fL 82.6 - 102.9 fL [employer] [place] Work Phone: Monocytes/100 WBC (Bld) 6 % 3 - 12 % [facility] Work Phone: Morphology Vj (Bld) [Interp] Platelet clumps present, count appears adequate. [employer] [place] Work Phone: NRBC Automated 0.0 0.0 per 100 WBC [employer] Phone: Platelet distribution width (Bld) [Ratio] 12.7 % 11.8 - 14.4 % [employer] Phone: Platelet Estimate NOT REPORTED [employer] Phone: Platelet mean volume (Bld) [Entitic vol] NOT REPORTED 8.1 - 13.5 fL [employer] Work Phone: Platelets (Bld) [#/Vol] See Reflexed IPF Result [employer] Phone: RBC (Bld) [#/Vol] 3.46 10*6/uL Low 3.95 - 5.1 1 m/uL [employer] Work Phone: RBC (Bld) [#/Vol] NOT REPORTED [employer] Work Phone: Segmented neutrophils/100 WBC (Bld) 76 % High 36 - 65 % [employer] Work Phone: Segs Absolute 9.72 [employer] Work Phone: WBC (Bld) [#/Vol] 12.8 10*3/uL High [employer] Work Phone: WBC (Bld) [#/Vol] NOT REPORTED [employer] Work Phone: [employer] Work Phone: CBC with Diffon 05-01-2021 Abs. Basophil 0.00 k/uL Normal 0.0-0.2 [facility] Comment on above: Performed By: #### I PF, CDP #### [facility] [address] [place] [address] Dr. Renae, [place] [id number] Director Television: Jose Francisco Trotter MD Abs.Imm.Granulocyte 0.26 k/uL Normal 0.00-0.30 [facility] Comment on above: Performed By: #### I PF, CDP #### [address] Renae, [id number] Director Television: Jose Francisco Trotter MD Abs.Neutrophil (Seg) 9.72 k/uL High 1.50-8.10 [facility] Comment on above: Performed By: #### I PF, CDP #### [address] [place] [address] Director Television: Jose Francisco Trotter MD Basophils/100 WBC (Bld) 0 % Normal 0-2 [facility] Comment on above: Performed By: #### I PF, CDP #### [address] [place] [address] Director Television: Jose Francisco Trotter MD Eosinophils (Bld) [#/Vol] 0.00 10*3/uL Normal 0.00-0.44 [facility] Comment on above: Performed By: #### I PF, CDP #### [address] Renae, [place] [address] Director Television: Jose Francisco Trotter MD Eosinophils/100 WBC (Bld) 0 % Low 1-4 [facility] Comment on above: Performed By: #### I PF, CDP #### [address] Renae, [id number] Director Television: Jose Francisco Trotter MD Immature granulocytes/100 WBC (Bld) 2 % High 0 [facility] Comment on above: Performed By: #### I PF, CDP #### [address] [place] [id number] Director Television: Jose Francisco Trotter MD Lymphocytes (Bld) [#/Vol] 2.05 10*3/uL Normal 1.10-3.70 [facility] Comment on above: Performed By: #### I PF, CDP #### [facility] [address] [place] [address] [place] [address] Director Television: Jose Francisco Trotter MD Lymphocytes/100 WBC (Bld) 16 % Low 24-43 [facility] Comment on above: Performed By: #### I PF, CDP #### [facility] [address] [place] [address] [place] [address] Director Television: Jose Francisco Trotter MD Monocytes (Bld) [#/Vol] 0.77 10*3/uL Normal 0.10-1.20 [facility] Comment on above: Performed By: #### I PF, CDP #### [address] Renae, [place] [address] Director Television: Jose Francisco Trotter MD Monocytes/100 WBC (Bld) 6 % Normal 3-12 [facility] Comment on above: Performed By: #### I PF, CDP #### [address] [place] [address] Director Television: Jose Francisco Trotter MD Morphology Vj (Bld) [Interp] Platelet clumps present, count appears adequate. Normal [facility] Comment on above: Performed By: #### I PF, CDP #### [facility] [address] [place] [address] Dr. Renae, [id number] Director Television: Jose Francisco Trotter MD Neutrophil (Seg) 76 % High 36-65 [facility] Comment on above: Performed By: #### I PF, CDP #### [address] Renae, [id number] Director Television: Jose Francisco Trotter MD Erythrocyte distribution width (RBC) [Ratio] 12.7 % Normal 11.8-14.4 [facility] Comment on above: Performed By: #### I PF, CDP #### [address] Renae, [place] [id number] Director Television: Jose Francisco Trotter MD Hematocrit (Bld) [Volume fraction] 34.1 % Low 36.3-47.1 [facility] Comment on above: Performed By: #### I PF, CDP #### [address] [place] [id number] Director Television: Jose Francisco Trotter MD Hemoglobin (Bld) [Mass/Vol] 11.2 g/dL Low 11.9-15.1 [facility] Comment on above: Performed By: #### I PF, CDP #### [address] [place] [id number] Director Television: Jose Francisco Trotter MD MCH (RBC) [Entitic mass] 32.4 pg Normal 25.2-33.5 [facility] Comment on above: Performed By: #### I PF, CDP #### [address] [place], [place] [id number] Director Television: Jose Francisco Trotter MD MCHC (RBC) [Mass/Vol] 32.8 g/dL Normal 28.4-34.8 [facility] Comment on above: Performed By: #### I PF, CDP #### [address] [place] [id number] Director Television: Jose Francisco Trotter MD MCV (RBC) [Entitic vol] 98.6 fL Normal 82.6-102.9 [facility] Comment on above: Performed By: #### I PF, CDP #### [address] [place] [address] Director Television: Jose Francisco Trotter MD NRBC Automated 0.0 per 100 WBC Normal 0.0 [facility] Comment on above: Performed By: #### I PF, CDP #### [address] [place] [address] Director Television: Jose Francisco Trotter MD Platelet Count See Reflexed IPF Result Normal 138-453 [facility] Comment on above: Performed By: #### I PF, CDP #### [facility] [address] [place] [address] Director Television: Jose Francisco Trotter MD RBC (Bld) [#/Vol] 3.46 10*6/uL Low 3.95-5.11 [facility] Comment on above: Performed By: #### I PF, CDP #### [facility] [address] [place] [address] Director Television: Jose Francisco Trotter MD WBC (Bld) [#/Vol] 12.8 10*3/uL High 3.5-11.3 [facility] Comment on above: Performed By: #### I PF, CDP #### [facility] [address] [place] [address] Director Television: Jose Francisco Trotter MD Auto Diff Performed NOT REPORTED Normal [facility] Comment on above: Performed By: #### I PF, CDP #### [facility] [address] [place] [address] Director Television: Jose Francisco Trotter MD MPV NOT REPORTED Normal 8.1-13.5 [facility] Comment on above: Performed By: #### I PF, CDP #### [facility] [address] [place] [address] Director Television: Jose Francisco Trotter MD Platelet Estimate NOT REPORTED Normal [facility] Comment on above: Performed By: #### I PF, CDP #### [facility] [address] [place], [place] [id number] Director Television: Jose Francisco Trotter MD RBC morphology finding Nom (Bld) NOT REPORTED Normal [facility] Comment on above: Performed By: #### I PF, CDP #### [facility] [address] [place], [place] [phone] Director Television: Jose Francisco Trotter MD WBC Morphology NOT REPORTED Normal [facility] Comment on above: Performed By: #### I PF, CDP #### [facility] [address] [place], [place] [phone] Director Television: Jose Francisco Trotter MD Immature Platelet FractionOr dered By: Tomasa Padgett on 05-01-2021 Interpretation and review of laboratory results Abnormal [facility] Phone: Platelet, Fluorescence 104 Low Me [facility] [place] [facility] Phone: Platelet, Immature Fraction 21.3 % High 1.1 - 10.3 % [facility] [place] [facility] Phone: [facility] [place] [facility] Phone: PLT, Immature Fract.on 05-01 Platelet, Fluoresc. 104 k/uL Low 138-453 [facility] Comment on above: Performed By: #### I PF, CDP #### [address] [place], [place] [id number] Director Television: Jose Francisco Trotter MD PLT, Immature Fract. 21.3 % High 1.1-10.3 [facility] Comment on above: Performed By: #### I PF, CDP #### [address] [place], [place] [id number] Director Television: Jose Francisco Trotter MD GBS, External ResultOrdered By: Historical Provider on 03-28-2021 GBS, External Result Negative [facility] [place] [facility] Phone: Comment on above: verified CK RN Outside lab see results [facility] Phone: [facility] [place] [facility] Phone: HIV ScreenOrdered By: Histor ical Provider on 10-14-2020 HIV Ag/Ab NR [facility] [place] [facility] Phone: Comment on above: verified CK RN N. GONORRHOEAE CULTUREOrdere d By: Historical Provider on 10-14-2020 Culture, Gonorrhoeae Negative [facility] Work Phone: Comment on above: verified SYMONE RN No Panel InformationOrdered By: Historical Provider on 10-14-2020 Outside lab see results [employer] [place] Work Phone: [employer] [place] Work Phone: [employer] [place] Work Phone: PROFILE IOrdered By : Historical Provider on 10-14-2020 ABO/Rh O+ [employer] Phone: Comment on above: verified SYMONE RN [facility] Work Phone: Comment on above: verified SYMONE RN Rubella virus IgG Ql (S) IMM [employer] [place] Work Phone: Comment on above: verified SYMONE RN T. pallidum, IgG [facility] Work Phone: Comment on above: verified SYMONE RN Vital Signs Date Time Vital Sign Value Performing Clinician Yong calvo 05-03-2021 08:15-0400 Diastolic blood pressure 56 mm[Hg] Tomasa Encisoo FRONT DESK COORDINATOR - CNM Work Phone: [employer] Phone: 05-03-2021 08:15-0400 Heart rate 62 /min Tomasa Padgett FRONT DESK COORDINATOR - CNM Work Phone: [employer] [place] Work Phone: 05-03-2021 08:15-0400 Respiratory rate 16 /min Tmoasa Zariao FRONT DESK COORDINATOR - CNM Work Phone: [employer] [place] Work Phone: 05-03-2021 08:15-0400 Systolic blood pressure 118 mm[Hg] Tomasa Zariao FRONT DESK COORDINATOR - CNM Work Phone: [employer] [place] Work Phone: 05-03-2021 00:09-0400 Body temperature 98.01 [degF] Tomasa Floro FRONT DESK COORDINATOR - CNM Work Phone: [facility] Work Phone: Encounters Encounter Date Encounter Type [...] 09-16-2023 End: 09-16-2023 Emergency department patient visit [facility] Start: 09-07-2023 End: 09-07-2023 ambulatory TOMASA L FLORO Not Available Start: 09-05-2023 End: 09-05-2023 ambulatory TOMASA L FLORO Not Available Start: 12-02-2022 End: 12-02-2022 Emergency department patient visit SIMIN [facility] Start: 10-11-2022 End: 10-12-[address] SIMIN HARLEY . Facility:[facility] Start: 05-08-2022 End: 05-08-[address] SIMIN HARLEY . Facility:[facility] Start: 05-01-2021 End: 05-03-2021 Evaluation and management of inpatient SIMIN HARLEY [facility] Start: 05-01-2021 End: 05-03-2021 Evaluation and management of inpatient Tomasa Padgett FRONT DESK COORDINATOR - CNM Work Phone: [facility] Labor and Delivery Procedures Date Procedure Procedure Detail Performing Clinician Start: 05-01-2021 Blood count complete auto&auto difrntl wbc Tomasa Padgett FRONT DESK COORDINATOR - CN Work Phone: Start: 05-01-2021 IMMATURE PLATELET FRACTION Tomasa Padgett FRONT DESK COORDINATOR - CN Work Phone: Start: 03-28-2021 GBS, EXTERNAL RESULT Hi storical Provider Start: 10-14-2020 Antibody hiv-1&hiv-2 single result Historical Provider Start: 10-14-2020 Chlamydia culture George Padgett FRONT DESK COORDINATOR - CN Work Phone: Comment on above: verified CK RN Start: 10-14-2020 Ia[place]oo neisseria gonorrhoeae Historical Provider Plan of Treatment Date Care Activity Detail Author Start: 10-17-2023 End: 10-17-2023 Patient encounter procedure 10/17/2023 4:30 PM EST Routine [facility] [address] [place] [address] Tomasa Padgett CNM [address] [place], [place] [id number] [facility] Start: 04-20-2021 Influenza vaccination Flu vaccine (# 1) [facility] Work Phone: Start: 2007 COVID-19 Vaccine (1) COVID-19 Vaccin e (1) [facility] Work Phone: Immunizations Immunization Date Immunization Notes Care Provider Fa cility 05-01-2021 diphtheria, tetanus toxoids and acellular pertussis vaccine, unspecified formulation Tomasa Padgett FRONT DESK COORDINATOR - [facility] Work Phone: [employer] [place] Work Phone: 05-01-2021 measles, mumps and rubella virus vaccine Tomasa Padgett FRONT DESK COORDINATOR - CN Work Phone: [employer] [place] Work Phone: Payers Date Payer Category Payer Private Health Insurance JOSE HAINES [id number] 2023-Present [address] [place] [address] [id number] 2023 Private Health Insurance [id number] 2023 Private Health Insurance [id number] 2022 Medicaid [employer] [place] [id number] 2022-Present [address] [place] [address] [id number] 2021 Private Health Insurance [id number] 1995 Unknown [id number] 2.16.840.1.572442.3.579.2. 173 1995 Unknown [id number] 2.16.840.1.663694.3.579.2. 593 1995 Unknown [id number] 2.16.840.1.785816.3.579.2. 593 1995 Unknown [id number] 2.16.840.1.656800.3.579.2. 754 1995 Unknown [id number] 2.16.840.1.571311.3.579.2. 1286 1995 Unknown [id number] 2.16.840.1.680293.3.579.2. 1259 1995 Unknown [id number] 2.16.840.1.601137.3.579.2. 1259 1995 Unknown [id number] 2.16.840.1.401299.3.579.2. 9 1995 Unknown [id number] 2.16.840.1.855480.3.579.2. 9 1995 Unknown [id number] 2.16.840.1.517864.3.579.2. 9 1995 Unknown [id number] 2.16.840.1.827561.3.579.2. 9 1995 Unknown [id number] 2.16.840.1.942714.3.579.2. 1258 1995 Unknown [id number] 2.16.840.1.535918.3.579.2. 9 1995 Unknown [id number] 2.16.840.1.369875.3.579.2. 9 1995 Unknown [id number] 2.16.840.1.563025.3.579.2. 9 1995 Unknown [id number] 2.16.840.1.720458.3.579.2. 9 1995 Unknown [id number] 2.16.840.1.223846.3.579.2. 9 1995 Unknown [id number] 2.16.840.1.503045.3.579.2. 9 1995 Unknown [id number] 2.16.840.1.922161.3.579.2. 1259 1959 Unknown [id number] 1.2.840.979693.1.13.239.2. [id number] Social History Date Type Detail Facility Start: 05-01-2021 Tobacco smoking stat [facility] Former smoker [employer] [place] Work Phone: Start: 05-01-2021 End: 09-05-2023 Tobacco use and exposure Never used [employer] [place] Start: 05-01-2021 Alcohol intake Ex-drinker (finding) Lisbeth [employer] [facility] [employer] Work Phone: Start: 1995 Sex Assigned At Not on file M duran [employer] Work Phone: Start: 09-05-2023 [facility] Start: [...] er Note Pt requesting refill Zofran to [facility]. Also questions if envelope is ready with gender reveal. Her call back is [phone]. Thank you! [facility] Note 2023 Telephone Encounter - Vicente Wilkes - 2023 12:45 PM EST Note Date & Type Note Facility 2023 Miscellaneous Notes Formattin g of this note might be different from the original. Pt requesting refill Zofran to [facility]. Also questions if envelope is ready with gender reveal. Her call back is [phone]. Thank you! documented in this encounter [facility] [...] patient on [facility]-care documented in this encounter [employer] Phone: Evaluation note Note Date & Type Note Facility Evaluation note Diagnosis Term Normal delivery documented in this encounter [employer] Phone: Evaluation note Note Date & Type Note Facility Evaluation note Diagnosis Nausea and vomiting, unspecified vomiting type documented in this encounter [facility] Discharge instructions Instructions Note Date & Type Note Facility Hospital Discharge instructions Gemini Codne RN - 05/03/2021 Follow-up with your OB doctor as specified. [facility] OB Department phone: Dr. Annetta Lyon CNM Dr. Carmela Acosta CNM [address] [facility] [address] [facility] [address] [place] [address] Carmela Walters CN [address] [facility] [address] [phone] Evelyn Padgett, MSN, FRONT DESK COORDINATOR, CNM [facility] [address] [facility] [address] [address] Manrique [address] [facility] [address] Berenice Maldonado CNM [address] [place] [address] [place] [address] Vera Wright CNM [address] [place] [address] [place] [address] [phone] DIET Eat a well balanced diet focusing on foods high in fiber and protein. Drink plenty of fluids especially water. To avoid constipation you may take a mild stool softener as recommended by your doctor or real estate agent/broker. ACTIVITY Gradually increase your activity. Resume exercise regimen only after advice by your doctor or real estate agent/broker. Avoid lifting anything heavier than a gallon of milk for SIX weeks. Avoid driving until your doctor or real estate agent/broker has given their approval. Rise slowly from [...] medications as recommended by your doctor or real estate agent/broker for pain If you develop a warm, [...] vitamins as directed by your doctor or real estate agent/broker. Refer to the booklet in the folder/binder for more information. If you feel you need more assistance or have questions, please call Rossy Hedrick IBCLC, reporting process consultant, at or the OB department to [...] in your calf. documented in this encounter [employer] [place] Work Phone: Advance Directives No Advanced Directives [...] Diagnoses Term Tomasa Padgett APRN - CN [address] [place] [address] [facility] [employer] Reason Onset Date Comments Med Refill 2023 [...] - Reason: Loss of IV access)2099 (Due) Hcwxsjw-Qfcucw-Kxfgt Pertussis (BOOSTRIX) injection 0.5 mL 0.5 mL, [...] DATE CREATED AUTHOR AUTHOR'S ORGANIZ ATION 12/03/2022 [facility] DATE CREATED AUTHOR AUTHOR'S ORGANIZ ATION 09/16/2023 [facility] DATE CREATED AUTHOR AUTHOR'S ORGANIZ ATION 04/04/2024 [facility] FOR RECORDS PERTAINING TO PATIENTS WHO ARE [...] BE BASED ON THE PRIMARY CLINICAL RECORDS. [facility] [employer] provides no warranty or guarantee of the accuracy or completeness of information in this document.
[2024-04-05 10:39] LABS: Hematocrit 31.9 % (36.0-48.0); Hemoglobin 10.9 g/dL (12.0-16.0); Mean Corpuscular HGB Conc 34.2 g/dL (29.9-35.2); Mean Corpuscular Hemoglobin 32.8 pg (26.7-34.0); Mean Corpuscular Volume 96.1 fL (81.0-99.0); Mean Platelet Volume 12.6 fL (9.5-13.5); Platelet Count 82 10^3/uL (150-450); Red Blood Count 3.32 10^6/uL (4.20-5.40); White Blood Count 11.7 10^3/uL (4.0-11.0)
[2024-04-05 10:40] LABS: Bilirubin Urine NEGATIVE (NEGATIVE); Blood Urine NEGATIVE (NEGATIVE); Clarity Urine CLEAR (CLEAR); Color Urine LT. YELLOW (YELLOW); Glucose Urine UA NEGATIVE (NEGATIVE); Ketones Urine 15 mg/dL (NEGATIVE); Leukocyte Esterase Urine NEGATIVE (NEGATIVE); Nitrite Urine NEGATIVE (NEGATIVE); Protein Urine NEGATIVE (NEG/TRACE); Specific Gravity Urine 1.015 (1.005-1.025); Urobilinogen Urine 0.2 EU/dL (0.2-1.0)
[2024-04-05 10:44] LABS: Urine Microscopic Indicated NO
[2024-04-05 10:58] LABS: Amphetamine Screen Urine NEGATIVE (NEGATIVE); Barbiturates Screen Urine NEGATIVE (NEGATIVE); Benzodiazepines Screen Urine NEGATIVE (NEGATIVE); Buprenorphine Screen Urine NEGATIVE (NEGATIVE); Cannabinoid Screen Urine NEGATIVE (NEGATIVE); Cocaine Screen Urine NEGATIVE (NEGATIVE); Methadone Screen Urine NEGATIVE (NEGATIVE); Methamphetamines Screen Urine NEGATIVE (NEGATIVE); Opiate Screen Urine NEGATIVE (NEGATIVE); Oxycodone Screen Urine NEGATIVE (NEGATIVE); Phencyclidine Screen Urine NEGATIVE (NEGATIVE); Tricyclic Antidepressant Urine NEGATIVE (NEGATIVE)
[2024-04-05] MEDS: OXYTOCIN/0.9 % SODIUM CHLORIDE 20 UNITS/1,000 ML PLAST..BAG 125 UNIT IV (12:39)
--- NOTE | 2024-04-05 13:12 | P.OBPRC_ITS ---
Procedure Intrapartal events: None Induction method: none Delivery monitor: external FHT and external uterine Route of delivery: Episiotomy Description: none L&D Laceration Description: none Estimated blood loss (mL): 150 Anesthesia type: NITROUS OXIDE Disposition: no change Infant Delivery date: 04/05/24 Gender: male presentation: vertex Placental delivery description: Spontaneous cord description: 3 Vessels heart rate - 1 minute: 100 bpm or Greater respiratory effort - 1 minute: Spontaneous/Strong Cry muscle tone - 1 minute: Active Movement reflex response - 1 minute: Prompt Response color - 1 minute: Bluish Hands or Feet total score - 1 minute: 9 heart rate - 5 minute: 100 bpm or Greater respiratory effort - 5 minute: Spontaneous/Strong Cry muscle tone - 5 minute: Active Movement reflex response - 5 minute: Prompt Response color - 5 minute: Olivarez/No Cyanosis total score - 5 minute: 10
[2024-04-05] MEDS: BENZOCAINE/MENTHOL 85 GRAM SPRAY BOTTLE 1 APPLIC TOPICAL (14:12)
[2024-04-05] MEDS: KETOROLAC TROMETHAMINE 30 MG/ML VIAL IVP (14:12)
[2024-04-05] MEDS: GLYCERIN/WITCH HAZEL PADS 1 PAD TOPICAL (14:12)
[2024-04-05] MEDS: ACETAMINOPHEN 325 MG TABLET 650 MG PO ×2 (17:38→23:41)
[2024-04-05] MEDS: IBUPROFEN 400 MG TABLET 800 MG PO (21:51)
[2024-04-06] MEDS: IBUPROFEN 400 MG TABLET 800 MG PO ×2 (06:09→19:21)
[2024-04-06 07:50] VITALS: TEMP 36.7
[2024-04-06 07:52] VITALS: BP 116/67; PULSE 73
[2024-04-06] MEDS: DOCUSATE SODIUM 100 MG CAPSULE PO ×2 (08:04→20:30)
[2024-04-06] MEDS: ACETAMINOPHEN 325 MG TABLET 650 MG PO ×2 (08:04→20:30)
--- NOTE | 2024-04-06 09:29 | PC.NURSE ---
0805 medicated with tylenol preemptively for cramping associated with
--- NOTE | 2024-04-06 10:54 | PM.OBPN ---
OB - PN: Subj Subjective Patient comments: no complaints, tolerating diet and flatus present infant status: doing well feeding status: exclusively Exam Narrative Exam Narrative: VOICING NO COMPLAINTS Constitutional Vital Signs, click to edit/add: Last Vital Signs Temp 98.1 F 04/06/24 07:50 Pulse 73 04/06/24 07:52 Resp 14 04/06/24 07:50 BP 116/67 04/06/24 07:52 O2 Del Method Room Air 04/05/24 23:48 Documenting provider has reviewed patient's vital signs: yes Common normals: no apparent distress, average body habitus, oriented x3, no limitations, healthy appearing and alert General appearance: cooperative and comfortable HENMT Common normals: normocephalic and head/scalp atraumatic Eye Pupil: PERRL and accommodation reflex normal Neck & C-Spine Common normals: full ROM and supple Respiratory Common normals: normal respiratory effort Cardio Common normals: regular rate and regular rhythm GI Common normals: Normal to inspection, nondistended, normoactive bowel sounds present and soft to palpation Common normals: no CVA tenderness Back & Pelvis Common normals: no thoracic nor lumbar tenderness Extremity Common normals: normal to inspection and no calf tenderness Neuro Common normals: CN's II-XII intact bilaterally Sensorium/orientation: awake, alert, oriented to person, oriented to place and oriented to time Psych Common normals: mental status grossly normal, thought process normal, cooperative, affect normal and speech normal OB - PN: A/P Assessment and Plan (1) Normal vaginal delivery: Assessment and Plan: NORMAL LOCHIA, PERINEUM INTACT, BREAST FEEDING, BABY DOING WELL, VOICING NO CONCERNS Plan ROUTINE CARE Plan - Vaginal Delivery day: 1 Plan: routine care Time Spent with Patient Time: Total time spent is greater than 50% in coordination of care (as documented) at patient's floor/unit and/or counseling patient: Total time spent with greater than 50% in coordination of care (as documented) at patient's floor/unit and/or counseling patient: less than 15 minutes
[2024-04-06 16:30] VITALS: BP 120/68; PULSE 72; TEMP 36.7
[2024-04-06 23:36] VITALS: BP 117/65; PULSE 62; TEMP 36.8
[2024-04-07] MEDS: ACETAMINOPHEN 325 MG TABLET 650 MG PO ×2 (02:38→16:47)
[2024-04-07] MEDS: IBUPROFEN 400 MG TABLET 800 MG PO ×2 (03:55→16:46)
[2024-04-07 07:30] VITALS: BP 113/67; PULSE 70; TEMP 36.5
--- NOTE | 2024-04-07 12:02 | SWNOTE1 ---
SW met with pt to discuss possible social situation and making sure pt is safe at home. SW spoke with nursing prior to seeing pt. Father of baby is incacertaed. Pt's drug screen was negative, but possible THC during . Pt is bonding with baby and no concerns from nurse. Plan is for discharge today. Pt has a almost 3 year old daughter at home. Different father for the 3 year old. She has good support from her family. Father of this baby is incarcerated. She is not sure what the relationship will be once he is out of residential. Pt has good support from her family/friends. Pt has everything she needs at home for baby. She is and it is going well. SW spoke with pt about post- depression and to be aware of the signs. Pt was negative on admission for THC. No plans of any kind of use of THC once she is home. Pt is holding baby while SW completes assessment. No concerns, no referral made at this time.
--- NOTE | 2024-04-07 13:10 | P.OBPN_ITS ---
OB - PN: Subj Subjective Patient comments: no complaints and pain well controlled [place] status: doing well Exam Constitutional Vital Signs, click to edit/add: Last Vital Signs Temp 97.7 F 04/07/24 07:30 Pulse 70 04/07/24 07:30 Resp 16 04/07/24 07:30 BP 113/67 04/07/24 07:30 O2 Del Method Room Air 04/07/24 07:30 Documenting provider has reviewed patient's vital signs: yes Common normals: no apparent distress Respiratory Common normals: clear to auscultation bilaterally Cardio Common normals: regular rate and regular rhythm GI Common normals: Normal to inspection, nondistended, normoactive bowel sounds present Extremity Common normals: no clubbing, cyanosis or edema OB - PN: A/P Assessment and Plan (1) Normal vaginal delivery: Plan - Vaginal Delivery day: 2 Plan: routine care, discharge home and follow up 6 weeks Time Spent with Patient Time: Total time spent is greater than 50% in coordination of care (as documented) at patient's floor/unit and/or counseling patient: Total time spent with greater than 50% in coordination of care (as documented) at patient's floor/unit and/or counseling patient: less than 15 minutes
[2024-04-07 16:43] VITALS: BP 126/71; PULSE 74
[2024-04-07 16:45] VITALS: TEMP 36.5
== END 2024-04-07 17:15 | disposition home or self-care (01) | DRG 560 ==
LOC: FBC 12:59
PROVIDERS: Admitting Provider Midwife; PCP Midwife; Visit Provider Obstetrics & Gynecology
DX: O80 Encounter for full-term uncomplicated delivery (principal); Z3A.38 38 weeks gestation of pregnancy; Z37.0 Single live birth
CPT/HCPCS: 36415; 59050; 59410; 80307; 81003; 85027; 86850; 86900; 86901; 96374; 96375; J1885

== ENCOUNTER 2025-06-10 | Outpatient (REF) | payer BC, OTHER, SELFPAY ==
--- OUTSIDE RECORDS SUMMARY | 2025-06-10 14:30 | XMS_ITS | Encounter Summary ---
Author Organization [facility] Address [address] [place] [address] Care Team Providers Care Woodworking Craftsman Name Role Phone Unallocated, Noms Provider Primary Care Provi clarita Reason for Visit * ReasonCommentshistpry of HPV infectionPre-op VisitDysplasia of cervix Endometrial Biopsy Encounter Details DateTypeDepartmentCare Team (Latest Contact Info)Ybqxelpjqnt61/22/2025 2:30 PM EDTProcedure Visit [facility] [address] [place] [id number] Matias Norht DO [address] [place] [address] Pre-op examination; Request for sterilization; Menorrhagia with regular cycle; Pelvic pain in female; Abnormal uterine bleeding; Dysplasia of cervix, high grade SIXTO 2; History of HPV infection; Papanicolaou smear of cervix with low risk human papillomavirus (HPV) DNA test positive Social History Tobacco UseTypesPacks/DayYears UsedDateSmoking Tobacco: NeverSmokeless Tobacco: NeverAlcohol UseStandard Drinks/WeekCommentsYes0 (1 standard drink = 0.6 oz pure alcohol)caffeine: noneEdinburgh Depression ScaleAnswerDate Recorded [place] Depression Scale Tasoz2988/02/2024The thought of harming myself has occurred to me.Never4CommentsNoSex and Gender InformationValueDate RecordedSex Assigned at BirthNot on fileLegal SexFemale 11/01/2022 11:08 PM EDTGender IdentityNot on fileSexual OrientationNot on file documented as of this encounter Last Filed Vital Signs Vital SignReadingTime TakenCommentsBlood Taszfgfs586/6010 2:46 PM EDT Pulse--Temperature--Respiratory Rate--Oxygen Saturation--Inhaled Oxygen Concentration--Vdfsoz63.4 kg (144 lb 1.9 oz)06/10/2025 2:46 PM EDTHeight--Body Mass Index22.5703 12:00 PM EDTdocumented in this encounter Progress Notes * Alla Vasquez - 06/10/2025 2:30 PM EDT Reason for Appointment: Patient ID: Bettye Kimble is a 29 y.o. female who presents for histpry of HPV infection, Pre-op Visit, Dysplasia of cervix, and Endometrial Biopsy Patient presents today for Pre Op/Endometrial Biopsy appointment. Patient is scheduled to undergo Da Vera assisted Bilateral Laparoscopic Salpingectomy, Endometrial Ablation with Betzaida, and LEEP on 07/06/[address] North at [facility]. MEDICATIONS Current Outpatient Medications Medication Instructions norethindrone (Micronor) 0.35 MG tablet 1 tablet, Daily sertraline (ZOLOFT) 25 mg, Oral, Daily ALLERGIES No Known Allergies PROBLEMS Active Ambulatory Problems Diagnosis Date Noted No Active Ambulatory Problems Resolved Ambulatory Problems Diagnosis Date Noted No Resolved Ambulatory Problems No Additional Past Medical History HISTORY PAST MEDICAL HISTORY SOCIAL HISTORY History reviewed. No pertinent past medical history. Social History Tobacco Use Smoking status: Never Smokeless tobacco: Never Substance Use Topics Alcohol use: Yes Comment: caffeine: none Drug use: Never FAMILY HISTORY Family History Problem Relation Name Age of Onset Colon cancer Maternal Grandmother Lung cancer Maternal Grandfather No Known Problems Daughter SURGICAL HISTORY History reviewed. No pertinent surgical history. REVIEW OF SYSTEMS Review of Systems: Review of Systems Constitutional: Negative. HENT: Negative. Eyes: Negative. Respiratory: Negative. Cardiovascular: Negative. Gastrointestinal: Negative. Genitourinary: Positive for menstrual problem and pelvic pain. Musculoskeletal: Negative. Skin: Negative. Neurological: Negative. All other systems reviewed and are negative. Hematological: Negative. Endocrine: Negative. Allergic/Immunologic: Negative. OBJECTIVE Objective: Physical Exam Constitutional: Appearance: Normal appearance. She is well-developed. Genitourinary: Vulva normal. Cardiovascular: Rate and Rhythm: Normal rate and regular rhythm. Pulmonary: Effort: Pulmonary effort is normal. Breath sounds: Normal breath sounds. Abdominal: General: Bowel sounds are normal. There is no distension. Palpations: Abdomen is soft. Tenderness: There is no abdominal tenderness. There is no guarding or rebound. Musculoskeletal: General: No swelling. Normal range of motion. Right lower leg: No edema. Left lower leg: No edema. Neurological: Mental Status: She is alert and oriented to person, place, and time. Skin: General: Skin is warm and dry. Psychiatric: Mood and Affect: Mood normal. Behavior: Behavior normal. Vitals and nursing note reviewed. Exam conducted with a electronics design engineer present. Vitals: Estimated body mass index is 22.57 kg/m?? as calculated from the following: Height as of 11/15/22: 5' 7 . Weight as of this encounter: 144 lb 1.9 oz. BP: 110/60 Patient's last menstrual period was 06/06/2025. ASSESSMENT & PLAN ICD-10-CM 1. Pre-op examination Z01.818 2. Request for sterilization Z30.2 3. Menorrhagia with regular cycle N92.0 4. Pelvic pain in female R10.20 5. Abnormal uterine bleeding N93.9 6. Dysplasia of cervix, high grade SIXTO 2 N87.1 POCT , urine manually resulted Tissue exam 7. History of HPV infection Z86.19 POCT , urine manually resulted Tissue exam 8. Papanicolaou smear of cervix with low risk human papillomavirus (HPV) DNA test positive R87.820 POCT , urine manually resulted Tissue exam EMBX: Patient was placed in dorsal lithotomy position with feet in stirrups. A sterile speculum was placed into the vagina and the cervix was visualized. The cervix was grasped with a single tooth tenaculum. The endometrial pipette was placed through the cervix into the uterus, endometrial curettage was performed and sampling was obtained, endometrial curettings were placed in formalin, and single tooth tenaculum was removed. Excellent hemostasis was assured. All instruments were removed from vagina. Pre Op: Patient is doing well but has desire for sterilization and has complaints of bleeding and pelvic pain. Patient also has a history of HG CIN2. Patient has tried hormone therapy in the past but all attempts to subside patients issues of bleeding have failed. I have discussed conservative management vs. surgical management with the patient in detail and patient desires surgical management at this time. Patient has voiced understanding that a Bilateral Salpingectomy is considered to be permanent and patient will undergo Da Vera assisted Bilateral Laparoscopic Salpingectomy, Endometrial Ablation with Betzaida, and LEEP on 07/06/2025. Surgical consents were signed, mmc was reviewed, and patient is to proceed to [facility] OR. Follow Up: Patient is to follow up between 1-2 weeks post op to assess proper healing and recovery from procedure. Documented by Mulu Watts LPN on behalf of: Matias North DO documented in this encounter Plan of Treatment NameTypePriorityAssociated DiagnosesOrder ScheduleTissue examPathology and CytologyRoutine Dysplasia of cervix, high grade SIXTO 2 History of HPV infection Papanicolaou smear of cervix with low risk human papillomavirus (HPV) DNA test positive Ordered: 06/10/2025documented as of this encounter Procedures Procedure NamePriorityDate/TimeAssociated DiagnosisCommentsPOCT , URINE Rlohtex6206/10/2025 2:56 PM EDT Dysplasia of cervix, high grade SIXTO 2 History of HPV infection Papanicolaou smear of cervix with low risk human papillomavirus (HPV) DNA test positive documented in this encounter Results * POCT , urine manually resulted (06/10/2025 2:56 PM EDT)ComponentValue Ref RangeTest MethodAnalysis TimePerformed AtPathologist SignaturePreg Test, UrNegativeNegativeSpecimen (Source)Anatomical Location / LateralityCollection Method / VolumeCollection TimeReceived HrfyPkdqi65/22/2025 2:56 PM EDT Narrative Authorizing ProviderResult TypeResult StatusCoreitzel North DOPOINT OF CARE TEST ENTER/EDIT ORDERABLESFinal Result documented in this encounter Visit Diagnoses Diagnosis Pre-op examination Request for sterilization Menorrhagia with regular cycle Pelvic pain in female Unspecified symptom associated with female genital organs Abnormal uterine bleeding Unspecified disorder of menstruation and other abnormal bleeding from female genital tract Dysplasia of cervix, high grade SIXTO 2 History of HPV infection Papanicolaou smear of cervix with low risk human papillomavirus (HPV) DNA test positive documented in this encounter Care Teams Team MemberRelationshipSpecialtyStart DateEnd Date Unallocated, Noms Provider, [address] [place] [address] PCP - GeneralFamily Medicine12/10/24documented as of this encounter
--- OUTSIDE RECORDS SUMMARY | 2025-06-11 20:34 | XMS_ITS | Continuity of Care Document ---
Author Organization [facility] Address [address] [place] [address] Phone Care Team Providers Care Technical Solution Architect Name Role Phone Matias North DO Attending Provider Care Teams Visit Care Team Team Status: Inactive Member Role/Relationship Status Dates Matias North DO Attending Provider Active Start : June 10, 2025 End: June 10, 2025 Chief Complaint and Reason for Visit Chief Complaint Admit Date Unknown June 10, 2025 6 :15am Social History Smoking Status Status Start Date End Date Date of Observa tion Smokes tobacco daily (finding) June 11, 2025 6:15am Observation Status Observation Response Date of Response Legal Sex Female (finding) Sex Assigned At BirthFemaleFebruary 1995 Family History Relationship Condition Age at Onset Recorded Date/T mishel mother Family history of blood clots Unknown Encounters Encounter Location(s) Arrival/Admit Date Discharge/Departure Date Discharge/Departure Disposition Provider(s) Departed Referred -[facility] June 10, 2025 6:15am June 10, 2025 6:16am Discharged to home care or self care (routine discharge) Matias North
--- OUTSIDE RECORDS SUMMARY | 2025-06-15 12:40 | XMS_ITS | Clinical Summary ---
Author Organization [facility] Address [address] [place] [address] Care Team Providers Care Motorcycle Tester Name Role Phone David Harley MD Primary Care Provider [phone] Medications MedicationSigDispense QuantityRefillsLast FilledStart DateEnd DateStatus Levocetirizine (XYZAL) 5 mg ORAL tablet Take 5 mg by mouth daily at bedtime.Active predniSONE 10 mg ORAL tablet pack Take by mouth once daily.Active Active Problems ProblemNoted DateDiagnosed DateErythema dwzvyzs8909/04/2011ESR elarlp6809/04/2011 Social History Tobacco UseTypesPacks/DayYears UsedDateSmoking Tobacco: Some DaysCigarettes Comments:no one else in the home smokes Alcohol UseStandard Drinks/WeekCommentsNot Asked0 (1 standard drink = 0.6 oz pure alcohol)CommentsUnknownSex and Gender InformationValueDate Recorded Sex Assigned at BirthNot on fileLegal RxgIawbhm32/02/2012 10:13 AM ESTGender IdentityNot on fileSexual OrientationNot on file Last Filed Vital Signs Vital SignReadingTime TakenCommentsBlood Bpuzjfcg902/58008/31/2011 11:04 AM EST Ugvja9462/12/2012 11:04 AM OYSSohpowyqxuw81 ??C (98.6 ??F)08/31/2011 11:04 AM ESTRespiratory Rate--Oxygen Saturation--Inhaled Oxygen Concentration--Vemhjg83.1 kg (134 lb 11.2 oz)08/31/2011 11:04 AM YDAUhanwt794 cm (5' 5.35 )08/31/2011 11:04 AM ESTBody Mass Index22.17008/31/2011 11:04 AM EST Plan of Treatment Health MaintenanceDue DateLast DoneCommentsAnxiety Gytepxear54/15/2014Depression Ilvlxkudw75/15/2014HIV Fhzjibkdl55/15/2014Hepatitis C Htmngbult89/15/2014 DTaP,Tdap,Td Vaccine (1 - Tdap)2014Hepatitis B Vaccine (1 of 3 - 19+ 3- dose series)2014Cervical Cancer Wlatmyyez59/15/2017HPV Vaccine (1 - 3-dose SCDM series)3Covid-19 Vaccine (1 - 2024- season)2025Influenza Vaccine (#1)2025 Care Teams Team MemberRelationshipSpecialtyStart DateEnd David Harley MD PCP - GeneralFamily Medicine08/30/11
--- OUTSIDE RECORDS SUMMARY | 2025-06-15 12:40 | XMS_ITS | Patient Health Record ---
Author Organization [facility] Address [address] [place], [place] [address] Care Team Providers Care Cnc Wood Lathe Operator Name Role Phone Luiza Green Primary Care Provider [phone] Allergies No Known Allergies Reason For Referral No Information Medications Medication SIG (Take, Route, Frequency, Duration) Notes Start Date End Date Status Tylenol 325 MG 1 tablet as needed Orally every 4 hrs ActiveMili 0.25-35 MG-MCG1 tablet Orally Once a dayActiveZoloft 25 MG1 tablet Orally Once a dayActiveOndansetron 4 MG 1 tablet on the tongue and allow to dissolve Orally 4 times a day; Duration: 7 days As needed 5ActiveRizatriptan Benzoate 10 MG 1 tablet Orally twice a day; Duration: 10 days As needed may take second dose 2 hours after initial dose Active Social History Tobacco Use: Social History Observation Description Date Details (start date - stop date) Never Smoker NA - NA Sex Assigned At : Social History Observation Description Sex Assigned At Female Tobacco Use/Smoking Question Answer Notes Tobacco use: nonsmoker patient enter ed data CAGE-AID Questionnaire (2018 Edition) Question Answer Notes Have you ever felt that you ought to cut down on your drinking or drug use? No patient entered data Have people annoyed you by c riticizing your drinking or drug use? No patient entered data Have you ever felt bad or gu ilty about your drinking or drug use? No patient entered data Have you ever had a drink or used drugs first thing in the morning to steady your nerves or to get rid of a hangover? No patient entered data CAGE-AID Score 0 InterpretationNegativePRAPARE Question Answer Notes Date Completed/Updated: 06/27/2023 mala nt entered data What is your current housing situation? I have housing patient entered data Are you worried about losing your housing? No patient entered data What is the highest level of school that you have finished? 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 Check all that apply I choose not to answer this question Has lack of transportation kept you from medical appointments, meetings, work or from getting things needed for daily living?NoHow often do you see or talk to people that you care about and feel close to? (For example: talkingto friends on the phone, visiting friends or family, going to christianity or club meetings)More than 5 times a weekpatient entered dataHow stressed are you? Stress is when someone feels tense, nervous, anxious, or can't sleep at nightbecause their mind is troubledA little bitpatient entered dataIn the past year have you spent more than 2 nights in a row in a usp, long term, senior care center, orjuvenile correctional facility?Nopatient entered dataAre you a refugee?Nopatient entered dataWhat country are you from?[place] Statespatient entered dataDo you feel physically and emotionally safe where you currently live?Yespatient entered dataIn the past year, have you been afraid of your partner or ex-partner?Yespatient entered dataPRAPARE Score:2 Problems Problem Type SNOMED Code ICD Code Onset Dates Problem Status W/U Status Risk Notes Problem Thyroid disorder screening (1711 29102) Screening for thyroid disorder (Z13.29) ActiveconfirmedProblemDiabetes mellitus screening (322327932)Screening for diabetes mellitus (Z13.1)ActiveconfirmedProblemScreening for cardiovascular system disease (346879863)Screening for cardiovascular condition (Z13.6)Active confirmedProblemAdult health examination (509532442)Encounter for wellness examination in adult (Z00.00)ActiveconfirmedProblemViral screening (511260258) Encounter for hepatitis C screening test for low risk patient (Z11.59)Active confirmedProblemHuman immunodeficiency virus screening (982348622)Screening for HIV (human immunodeficiency virus) (Z11.4)ActiveconfirmedProblemRefractory migraine with aura (761552325)Intractable migraine with aura with status migrainosus (G43.111)ActiveconfirmedProblemThrombocytopenic disorder (531670009) Low platelet count (D69.6)Activeconfirmed Vital Signs Heart Rate 52 /min 04/07/2025 Sol Grace 04/07/2025 09:28:03 AM EDT > Temperature 98.4 degrees Fahrenheit 04/07/2025 Sol Gutierrez 04/07/2025 09:28:03 AM EDT > Respiratory Rate 16 /min 04/07/2025 Attila Grace 04/07/2025 09:28:03 AM EDT > Height-cm 170.18 cm 04/07/2025 Sol Grace 04/07/2025 09:28:03 AM EDT > Oximetry 98 % 04/07/2025 Sol Grace 04/07/2025 09:28:03 AM EDT > Blood pressure diastolic 63 mm Hg 04/07/2025 Sol Stone 04/07/2025 09:28:03 AM EDT > Weight-kg 60.83 kg 04/07/2025 Sol Grace 04/07/2025 09:28:03 AM EDT > Height 67 in 04/07/2025 Sol Grace 04/07/2025 09:28:03 AM EDT > Blood pressure systolic 100 mm Hg 04/07/2025 Sol Gutierrez 04/07/2025 09:28:03 AM EDT > Weight 134.1 lbs 04/07/2025 Sol Grace 04/07/2025 09:28:03 AM EDT > BMI 21 kg/m2 04/07/2025 Sol Grace 04/07/2025 09:28:03 AM EDT > Encounters Encounter Location Date Provider Diagnosis [address] [phone] 04/07/2025 Luiza Green Intractable migrai ne with aura with status migrainosus G43.111 ; Dietary counseling Z71.3 and Exercise counseling Z71.82 Assessments Encounter Date Diagnosis (ICD Code) Assessment Notes Treatment Notes Treatment Clinical Notes Section Notes 04/07/2025 Intractable migraine with aura with status migrainosus (ICD-10 - G43.111) Start sumatriptan for abortive therapy Zofran as needed for nausea and vomiting associated with migraine Plenty of fluids Call OBGYN about possibly switching control pills May need to consider daily migraine medication if frequency increases Go to ER for changes in migraines, SOB, or chest pain 04/07/2025Dietary counseling (ICD-10 - Z71.3)Encoruaged eating a healthy, balanced diet and increasing activity level by engaging in exercise atleast 30 min x atleast 5 days a week.04/07/2025Exercise counseling (ICD-10 - Z71.82)The patient was encouraged to increase exercise weekly to at least 3-4 times per week for 30-45 minutes for each session. Exercise may include but is not limited to walking, jogging, running, resistance training, water aerobics and strength training. Benefits of increasing exercise regimens may include healthier lifestyle, stronger bone health, diminished aches and pain, and better metabolism. Plan Of Treatment No Information Insurance Providers Payer Name Payer Address Payer Phone Subscriber Number Group Number Insured Name Patient Relationship to Insured Coverage Start Date Coverage End Date [employer] [address] [place] [phone] [id number] Loose, Bettye Self - patient is the insured [employer] [facility] [address] [place], [place] [id number], CorrineSelf - patient is the liltyut30 2022Medicaid [facility] after [address] [place], [place] [id number], CorrineSelf - patient is the insured 2022 Medical (General) History Medical History History ICD Code migraine headaches Surgical History Surgery Date(Month/Year) tonsillectomy
--- OUTSIDE RECORDS SUMMARY | 2025-06-15 12:40 | XMS_ITS | Encounter Summary ---
Author Organization [facility] Address [address] [place] [address] Care Team Providers Care Credit Card Control Clerk Name Role Phone Unallocated, Noms Provider Primary Care Provi clarita Encounter Details DateTypeDepartmentCare Team (Latest Contact Info)Yecfeehtnuf62/27/2025Orders Only ELBA [place] OBYOSEPH [address] [place] [address] Mei MoransolHUDSON, [place] [address] [place] [address] Social History Tobacco UseTypesPacks/DayYears UsedDateSmoking Tobacco: NeverSmokeless Tobacco: NeverAlcohol UseStandard Drinks/WeekCommentsYes0 (1 standard drink = 0.6 oz pure alcohol)caffeine: noneEdinburgh Depression ScaleAnswerDate Recorded [place] Depression Scale Johpw8774/02/2024The thought of harming myself has occurred to me.Never4CommentsNoSex and Gender InformationValueDate RecordedSex Assigned at BirthNot on fileLegal SexFemale 11/01/2022 11:08 PM EDTGender IdentityNot on fileSexual OrientationNot on file documented as of this encounter Plan of Treatment Not on file documented as of this encounter Procedures Procedure NamePriorityDate/TimeAssociated DiagnosisCommentsENDOMETRIAL BIOPSY, HZTJIUHRLmovhen29/22/2025 12:00 AM EDTdocumented in this encounter Results * ENDOMETRIAL BIOPSY, EXTERNAL (06/10/2025 12:00 AM EDT) Narrative Authorizing ProviderResult TypeResult StatusCorey Mary Anne DOLAB CYTOLOGY ORDERABLESFinal ResultPerforming OrganizationAddressCity/State/ZIP CodePhone Number EXTERNAL LAB documented in this encounter Visit Diagnoses Not on filedocumented in this encounter Care Teams Team MemberRelationshipSpecialtyStart DateEnd Date Unallocated, Noms Provider, [address] [place] [address] PCP - GeneralFamily Medicine12/10/24documented as of this encounter
--- OUTSIDE RECORDS SUMMARY | 2025-06-15 12:41 | XMS_ITS | Clinical Summary ---
Author Organization [facility] Address [address] [place] [address] Care Team Providers Care Soda Fountain Operator Name Role Phone Unallocated, Noms Provider Primary Care Provi clarita Allergies No known active allergies Medications MedicationSigDispense QuantityRefillsLast FilledStart DateEnd DateStatus sertraline (Zoloft) 25 MG tablet Indications: examination following vaginal delivery ([facility])Take 1 tablet (25 mg) by mouth Daily 30 tablet 515Active norethindrone (Micronor) 0.35 MG tablet Take 1 tablet by mouth DailyActive sertraline (Zoloft) 25 MG tablet Indications:History of anxiety,History of depressionTake 1 tablet (25 mg) by mouth Daily 30 tablet 6051Discontinued Encounters DateTypeDepartmentCare RvmxPguaktuodbe26/27/2025[place] [address] Olivia Moran MA 06/10/2025 2:30 [place] [address] Matias North DO Pre-op examination; Request for sterilization; Menorrhagia with regular cycle; Pelvic pain in female; Abnormal uterine bleeding; Dysplasia of cervix, high grade SIXTO 2; History of HPV infection; Papanicolaou smear of cervix with low risk human papillomavirus (HPV) DNA test wbkhzyym27/23/2025 10:30 AM EDTConsult [facility] [address] [place] [address] Matias North, Dysplasia of cervix, high grade SIXTO amboo flowsheet [facility] [address] [place] [address] Matias North DO 04/28/2025Orders Only [address] [place] [phone] Jessica Padgett, NEHA Dysplasia of cervix, high grade SIXTO 2 (Primary Dx)04/24/2025Telephone [address] [phone] Jessica Padgett, NEHA 04/23/2025Results Follow-Up [address] [place] [phone] Jessica Padgett, NEHA Tissue exam, POCT , urine manually efoxkqko70/27/2025 9:30 AM EDT Procedure Visit [facility] [place] [place] [phone] Jessica Padgett, NEHA History of HPV infection (Primary Dx); Papanicolaou smear of cervix with low risk human papillomavirus (HPV) DNA test laeihvvr55/14/2025Results Follow-Up [address] [place] [phone] Yaneli Kerr MA THINPREP IMAGING PAP AND HPV DNA REFLEX HPV 16,18004/02/2025Telephone [address] [phone] Yaneli eKrr MA 03/24/2025 9:30 AM EDTOffice Visit [address] [address] Jessica Padgett CNM Unwanted fertility (Primary Dx); Normal gynecologic examination; Screening for cervical cancer; History of anxiety; History of depression; examination following vaginal delivery ([facility])5Bamboo flowsheet [facility] [address] [place] [phone] Jessica Padgett CNM from Last 3 Months Family History Medical HistoryRelationNameCommentsNo Known ProblemsDaughterLung cancerMaternal GrandfatherColon cancerMaternal GrandmotherRelationNameStatusCommentsDaughter AliveFatherAliveMaternal GrandfatherDeceasedMaternal GrandmotherAliveMotherAlive Paternal GrandfatherAlivePaternal GrandmotherAlive Social History Tobacco UseTypesPacks/DayYears UsedDateSmoking Tobacco: NeverSmokeless Tobacco: Never Tobacco Cessation:Counseling Given: Not Answered Alcohol UseStandard Drinks/WeekCommentsYes0 (1 standard drink = 0.6 oz pure alcohol)caffeine: noneEdinburgh Depression ScaleAnswerDate Recorded [place] Depression Scale Fptza4274/02/2024The thought of harming myself has occurred to me.Never4CommentsNoSex and Gender InformationValueDate RecordedSex Assigned at BirthNot on fileLegal SexFemale 11/01/2022 11:08 PM EDTGender IdentityNot on fileSexual OrientationNot on file Last Filed Vital Signs Vital SignReadingTime TakenCommentsBlood Jtubgknc780/6006/10/2025 2:46 PM EDT Pulse--Temperature--Respiratory Rate--Oxygen Saturation--Inhaled Oxygen Concentration--Mrciuz57.4 kg (144 lb 1.9 oz)06/10/2025 2:46 PM ADGTttykz557.2 cm (5' 7 )11/15/2022 12:00 PM EDTBody Mass Index22.57011/15/2022 12:00 PM EDT Plan of Treatment Health MaintenanceDue DateLast DoneCommentsInfluenza Vaccine (#1)04/20/2025 Procedures Procedure NamePriorityDate/TimeAssociated DiagnosisCommentsPOCT , URINE Ssvouxk8406/10/2025 2:56 PM EDT Dysplasia of cervix, high grade SIXTO 2 History of HPV infection Papanicolaou smear of cervix with low risk human papillomavirus (HPV) DNA test positive ENDOMETRIAL BIOPSY, GNAQDUNNIbyxunl48/22/2025 12:00 AM EDTTISSUE EXAMRoutine 04/15/2025 11:21 AM EDT History of HPV infection Papanicolaou smear of cervix with low risk human papillomavirus (HPV) DNA test positive POCT , EQPNFZzhezbp41/27/2025 11:03 AM EDT Papanicolaou smear of cervix with low risk human papillomavirus (HPV) DNA test positive THINPREP IMAGING PAP AND HPV DNA REFLEX HPV 16,16Eeneltj35/05/2025 12:28 PM EDT Screening for cervical cancer from Last 3 Months Results * POCT , urine manually resulted (06/10/2025 2:56 PM EDT) Only the most recent of2 resultswithin the time period is included. ComponentValueRef RangeTest MethodAnalysis TimePerformed AtPathologist Signature Preg Test, UrNegativeNegativeSpecimen (Source)Anatomical Location / Laterality Collection Method / VolumeCollection TimeReceived YgoxQjyya12/22/2025 2:56 PM EDT Narrative Authorizing ProviderResult TypeResult StatusCorey Mary Anne DOPOINT OF CARE TEST ENTER/EDIT ORDERABLESFinal Result * ENDOMETRIAL BIOPSY, EXTERNAL (06/10/2025 12:00 AM EDT) Narrative Authorizing ProviderResult TypeResult StatusCorey Mary Anne DOLAB CYTOLOGY ORDERABLESFinal ResultPerforming OrganizationAddressCity/State/ZIP CodePhone Number EXTERNAL LAB * Tissue exam (04/15/2025 11:21 AM EDT)ComponentValueRef RangeTest Method Analysis TimePerformed AtPathologist SignatureCLINICAL INFORMATIONQUEST Comment:[id number], [id number]: Fran Ham M.D. Board certified in Anatomic Pathology and Clinical Pathology (electronic signature) Pathologist Release Date/Time: 04/17/2025 02:31PM REPORT NOTESQUESTComment: All positive and negative immunohistologic controls stain appropriately. Performance characteristics of immunohistologic tests have been determined by the [facility] in a manner consistent with CLIA requirements. The [facility] is regulated under CLIA as qualified to perform high-complexity testing. One or more of these tests may not have been cleared or approved by the FDA. The FDA does not require this test to go through premarket FDA review. These tests are used for clinical purposes and should not be regarded as investigational or for research. A SOURCEQUESTComment:Endocervix, curettage:A GROSS DESCRIPTIONQUESTComment: Received in 10% neutral buffered formalin is a specimen labeled endocervix that consists of pale burrows mucoid material on a wire brush tip measuring in aggregate 3.0 x 0.6 x 0.1 cm. ??Submitted entirely in one cassette(s). A DIAGNOSISQUESTComment: Strips of endocervical epithelium with chronic inflammation. B SOURCEQUESTComment:Cervix, 6, 9, 12 o'clock, biopsy:B GROSS DESCRIPTIONQUEST Comment: Received in 10% neutral buffered formalin is a specimen labeled cervix 6:00, 9:00, 12:00 that consists of three irregular pieces of soft burrows tissue measuring 1.4 x 0.3 x 0.2 cm admixed with mucoid material measuring 1.5 x 0.2 x 0.1 cm in aggregate. ??Submitted entirely in one cassette. SW B DIAGNOSISQUESTComment: High-grade squamous intraepithelial lesion (SIXTO 2). B COMMENTQUESTComment: A p16 immunostain (performed at [facility]) shows weak but diffuse staining in an area of atypical epithelium, supporting the above diagnosis. Specimen (Source)Anatomical Location / LateralityCollection Method / Volume Collection TimeReceived HkoxVxwzvz36/27/2025 11:21 AM EDT04/16/2025 4:36 AM EDT Narrative [facility] - 04/17/2025 3:07 PM EDT SMALL FORMALIN X2 ENDOCERVIX; CERVIX, 6,9,12 O'CLOCK Resulting Agency Comment Performing Organization Information ?Site ID: [id number] ?Name: [facility] ?Address: [address] [place] [address], [place] [address] ?Director: Deidra Cody MD Authorizing ProviderResult TypeResult StatusValetray Padgett CNMLAB PATHOLOGY ORDERABLESFinal ResultPerforming OrganizationAddressCity/State/ZIP CodePhone Number [facility] * (ABNORMAL) THINPREP IMAGING PAP AND HPV DNA REFLEX HPV 16,18 (03/24/2025 12:28 PM EDT)ComponentValueRef RangeTest MethodAnalysis TimePerformed AtPathologist SignatureCLINICAL INFORMATIONQUESTComment:None givenLMPQUESTComment:NONE GIVEN PREV. PAPQUESTComment:NONE GIVENPREV. BXQUESTComment:NONE GIVENSOURCEQUEST Comment:None givenSTATEMENT OF ADEQUACYQUESTComment: Satisfactory for evaluation. Endocervical/transformation zone component present. Partially obscuring inflammation GENERAL CATEGORIZATION(A)QUESTComment:Cytology Results: Epithelial Cell AbnormalityINTERPRETATION/RESULT(A)QUESTComment:Low Grade Squamous Intraepithelial Lesion (LSIL)COMMENTQUESTComment: This Pap test has been evaluated with the ThinPrep(R) Imaging System. Charles portions of this case have been reviewed by one or more pathologists. CYTOTECHNOLOGISTQUESTComment: TLF, CT(ASCP) CT Screening Location: [place] [address]. ??CLIA: ??[id number] PATHOLOGISTQUESTComment: Bisi Muller M.D. Board Certified in Anatomic and Clinical Pathology (electronic signature) For questions regarding this report call Anatomic Pathology at [phone] Pathologist Release Date/Time: 03/30/2025 09:58AM (ALWAYS MESSAGE)QUESTComment: EXPLANATORY NOTE: The Pap is a screening test for cervical cancer. It is not a diagnostic test and is subject to false negative and false positive results. It is most reliable when a satisfactory sample, regularly obtained, is submitted with relevant clinical findings and history, and when the Pap result is evaluated along with historic and current clinical information. HPV DNA, HIGH RISK, CERVICALDetected(A)NOT DETECTEDQUESTComment: Detected One or more High Risk HPV types (16,18,31,33, 35,39,45,51,52,56,58,59,66,68) was detected. Methodology: Real Time PCR Specimen (Source)Anatomical Location / LateralityCollection Method / Volume Collection TimeReceived TimeSwabCervical swab / Xdrjvpq8103/24/2025 12:28 PM EDT 03/25/2025 12:31 AM EDT Narrative Resulting Agency Comment Performing Organization Information ?Site ID: AMD ?Name: [facility] ?Address: [address] [place] [address] [place] ?Director: Misha Rodney M.D.,PhD ?Site ID: [id number] ?Name: [facility] ?Address: [address] [place] [address], [address] [place] [id number] ?Director: Randal Morley MD Authorizing ProviderResult TypeResult StatusValeritoni Padgett CNMLAB CYTOLOGY ORDERABLESFinal ResultPerforming OrganizationAddressCity/State/ZIP CodePhone Number [facility] from Last 3 Months Insurance Care Teams Team MemberRelationshipSpecialtyStart DateEnd Date Unallocated, Noms MD [place] [address] [place] [address] PCP - GeneralFami Medicine12/10/24
--- OUTSIDE RECORDS SUMMARY | 2025-06-15 12:41 | XMS_ITS | Clinical Summary ---
Author Organization [facility] Address [address], [address] [place] [address] Care Team Providers Care Sole Leveling Machine Operator Name Role Phone David Harley MD Primary Care Provider [phone] Allergies No known active allergies Medications MedicationSigDispense QuantityRefillsLast FilledStart DateEnd DateStatus MV-Min-Fe Fum-FA-DHA ( 1 PO) Take by mouthActive ferrous sulfate (IRON 325) 325 (65 Fe) MG tablet Take 325 mg by mouth daily (with breakfast)Active docusate sodium (COLACE) 100 MG capsule Take 1 capsule by mouth 2 times daily 60 capsule 05/03/2021ctive Active Problems ProblemNoted DateDiagnosed DateNormal delivery Resolved Problems ProblemNoted DateDiagnosed DateResolved DateTerm sqnrrvoru17 Immunizations ImmunizationAdministration DatesNext DueTD 5LF, TENIVAC, (age 7y+), IM, 0.5mL 12/02/2022 Social History Tobacco UseTypesPacks/DayYears UsedDateSmoking Tobacco: FormerSmokeless Tobacco: NeverAlcohol UseStandard Drinks/WeekCommentsNot Currently0 (1 standard drink = 0.6 oz pure alcohol)CommentsNoSex and Gender InformationValueDate RecordedSex Assigned at BirthNot on fileLegal WviAjltff60/10/2013 10:53 AM EST Gender IdentityNot on fileSexual OrientationNot on file Last Filed Vital Signs Vital SignReadingTime TakenCommentsBlood Nvwajzjd002/5609 8:15 AM EDT Yrkac5987/ 3:32 PM WKSBxkqgttnemi00.8 ??C (98.2 ??F)12/02/2022 3:30 PM EDTRespiratory Jxix497312/02/2022 3:32 PM EDTOxygen Ybxmvyskct85%12/02/2022 3:32 PM EDTInhaled Oxygen Concentration--Akdzba77.2 kg (135 lb)12/02/2022 3:32 PM EDT Gpvyru025.2 cm (5' 7 )12/02/2022 3:32 PM EDTBody Mass Index21.14012/02/2022 3:32 PM EDT Plan of Treatment Health MaintenanceDue DateLast DoneCommentsDepression Fiohbn9210/04/2007Varicella vaccine (1 of 2 - 13+ 2-dose series)2008Hepatitis C safrna6510/04/2013 Hepatitis B vaccine (1 of 3 - 19+ 3-dose series)2014Pap smear2016 DTaP/Tdap/Td vaccine (1 - Tdap)Flu vaccine (#1)03/20/2025 COVID-19 Vaccine (1 - season)2025HIV crokoxHwzxvzaqh96/25/2021HPV vaccine (No Doses Required)CompletedHepatitis A vaccineAged OutNo longer eligible based on patient's age to complete this topicHib vaccineAged OutNo longer eligible based on patient's age to complete this topicMeningococcal (ACWY) vaccineAged OutNo longer eligible based on patient's age to complete this topicMeningococcal B vaccineAged OutNo longer eligible based on patient's age to complete this topicPneumococcal 0-49 years VaccineAged OutNo longer eligible based on patient's age to complete this topicPolio vaccineAged OutNo longer eligible based on patient's age to complete this topic Procedures Procedure NamePriorityDate/TimeAssociated DiagnosisCommentsHIV SCREENRoutine 10/14/2020 from Last 3 Months or Most Recently Relevant to Health Maintenance Results * HIV Screen (10/14/2020)ComponentValueRef RangeTest MethodAnalysis Time Performed AtPathologist SignatureHIV Ag/AbNREXTERNAL LABComment:verified CK RN Specimen (Source)Anatomical Location / LateralityCollection Method / Volume Collection TimeReceived TimeBLOOD SPECIMEN / Unknown Narrative Resulting Agency Comment Outside lab see results Authorizing ProviderResult TypeResult StatusHistorical Provider MDIMMUNOLOGY ORDERABLESFinal ResultPerforming OrganizationAddressCity/State/ZIP CodePhone Number EXTERNAL LAB from Last 3 Months or Most Recently Relevant to Health Maintenance Insurance * Guarantor: Bettye Kimblecount TypeRelation to PatientDate of BirthPhone Billing AddressPersonal/HpalbaPloc51/15/1996 [address] [phone] Advance Directives * Full Code (Latest Code Status on File) Date ActivatedDate InactivatedComments05/01/2021 1:25 PM05/03/2021 3:25 PM * Full Code Date ActivatedDate InactivatedComments05/01/2021 9:06 AM05/01/2021 1:25 PM Care Teams Team MemberRelationshipSpecialtyStart DateEnd Date David Harley MD [address] [place] [address] [facility]05/01/21
--- OUTSIDE RECORDS SUMMARY | 2025-06-15 12:41 | XMS_ITS | Patient Health Record ---
Author Organization [facility] [place] Address [address] [place] [address] Care Team Providers Care New Car Salesperson Name Role Phone Brady Harley Primary Care Provider Allergies Allergen (clinical drug ingredient) Drug/Non Drug Allergy documented on EMR Reaction Allergy Type Onset Date Status amoxicillin / clavulanate Augmentin Unknown Drug Aller gy Active Reason For Referral No Information Medications Medication SIG (Take, Route, Frequency, Duration) Notes Start Date End Date Status levoFLOXacin 500 MG 1 tablet Orally Once a day; Duration: 10 day(s) 03/07/20230820GgfltdYhforfut-Cviwnebec-Xikicxdt 3.5-97655-3.11 drop into affected eye Ophthalmic Four times a day; Duration: ctiveAzithromycin 250 MG2 tabs day 1, then 1 tab Orally qd05/22/2023ctiveJunel FE 09/08 1-20 MG-MCG1 tablet Orally Once a dayActive Social History Tobacco Use: Social History Observation Description Date Details (start date - stop date) Never Smoker NA - NA Tobacco Use/Smoking Question Answer Notes Patient is a nonsmoker Alcohol Screen (Audit-C) Question Answer Notes Did you have a drink containing alcohol in the p ast year? Yes How often did you have 6 or more drinks on one occasion in the past year?Never (0 point)How many drinks did you have on a typical day when you were drinking in the past year?3 or 4 drinks (1 point)How often did you have a drink containing alcohol in the past year?Monthly (2 points)Stkdji9MrzdnakxtyewqkIuohgcsn Problems Problem Type SNOMED Code ICD Code Onset Dates Problem Status W/U Status Risk Notes Problem Erythema nodosum (26016632) Erythema nodo sum (L52) ActiveconfirmedProblemStrain of back muscle (901762057)Sprain of joints and ligaments of unspecified parts of neck, initial encounter (S13.9XXA)Active confirmedProblemAbdominal pain (87325355)Abdominal pain (R10.9)Activeconfirmed ProblemWell child visit (834119204)Well child check (Z00.129)Activeconfirmed ProblemBronchitis (13429872)Bronchitis (J40)ActiveconfirmedProblemSinusitis (94986376)Sinusitis (J32.9)ActiveconfirmedProblemOtitis media (22878663)Otitis media (H66.90)ActiveconfirmedProblemPharyngitis (650476225)Pharyngitis (J02.9) ActiveconfirmedProblemConjunctivitis (5739037)Conjunctivitis (H10.9)Active confirmedProblemLimb pain (77768818)Limb pain (M79.609)ActiveconfirmedProblem Pruritus (717146739)Pruritus (L29.9)ActiveconfirmedProblemStreptococcal sore throat (disorder) (55579132)Strep pharyngitis (J02.0)ActiveconfirmedProblem Gastroenteritis (22401155)Gastroenteritis (K52.9)ActiveconfirmedProblemPhysical examination procedure (6243689)Physical exam, routine (Z00.00)Activeconfirmed ProblemViral wart (91673396)Other specified viral warts (B07.8)Activeconfirmed Plan Of Treatment Pending Test Test Name Order Date GROUP A STREP CULTURE 03/07/2023 STREPT SCREEN 03/07/2023 Insurance Providers Payer Name Payer Address Payer Phone Subscriber Number Group Number Insured Name Patient Relationship to Insured Coverage Start Date Coverage End Date [employer] [place] [employer] [address] [place] [address] [id number] Loose, CorrineSelf - patient is the [id number] 2022 Medical (General) History Medical History History ICD Code Sinusitis J32.9 Physical exam, routine Z00.00 Erythema nodosum L52 Pruritus L29.9 Bronchitis J40 Abdominal pain R10.9 Conjunctivitis H10.9 Other specified viral warts B07.8 Limb pain M79.609 Gastroenteritis K52.9 Well child check Z00.129 Otitis media H66.90 Pharyngitis J02.9
--- OUTSIDE RECORDS SUMMARY | 2025-06-15 12:41 | XMS_ITS | Clinical Summary ---
Author Organization [facility] tem Address [facility] [id number] [address] [place] [address] Care Team Providers Care Blogs Manager Name Role Phone Services, [facility] Primary Care Provider Allergies Active AllergyReactionsCriticalityNoted DateCommentsAmoxicillin-Pot Clavulanate Nkzxzqnd44/13/2019 Medications MedicationSigDispense QuantityRefillsLast FilledStart DateEnd DateStatus SPRINTEC, 28, 0.25-35 mg-mcg per tablet Take 1 tablet by mouth daily. 06/27/2019Active cyclobenzaprine (FLEXERIL) 10 mg tablet Take 1 tablet (10 mg total) by mouth 2 (two) times a day as needed for muscle spasms. 10 tablet 12/03/2022ctive Additional Information Patient not taking.Reported on 09/16/2023 ibuprofen (MOTRIN) 600 mg tablet Take 1 tablet (600 mg total) by mouth every 6 (six) hours as needed for pain. 30 tablet 12/03/2022ctive Additional Information Patient not taking.Reported on 09/16/2023 lidocaine (LIDODERM) 5 % Place 1 patch on the skin daily. Remove & Discard patch within 12 hours or as directed by 30 patch 12/03/2022ctive Additional Information Patient not taking.Reported on 09/16/2023 acetaminophen (TYLENOL EXTRA STRENGTH) 500 mg tablet Take 1 tablet (500 mg total) by mouth every 6 (six) hours as needed for pain. 30 tablet 12/03/2022ctive sertraline (ZOLOFT) 25 mg tablet Take 1 tablet (25 mg total) by mouth in the morning.5Active norethindrone-e.estradioL-iron (JUNEL FE ,) 1 mg-20 mcg (21)/75 mg (7) per tablet Take 1 tablet by mouth in the morning. 1 TABLET ORALLY ONCE A DAY.Active Active Problems ProblemNoted DateDiagnosed HhlzPppabmskecoafhis27/23/2021Normocytic anemia 03/11/2021H/O seasonal allergiesHeadacheEstimated Date of Delivery PezwebaeLyj62/28/2024 Encounters DateTypeDepartmentCare ZrmaRtvzpwtcvkj33/18/2025 6:40 PM EDT - 04/06/2025 7:36 PM EDTEmergency [facility] [address] [place] [address] Torsten Waller MD Other migraine without status migrainosus, not intractable (Primary Dx) Discharge Disposition: Homefrom Last 3 Months Family History Medical HistoryRelationNameCommentsLung cancerMaternal GrandfatherColon cancer Maternal GrandmotherBlood ClotsMotherOtherMotherhormonal issuesUrinary tract infectionSisterRelationNameStatusCommentsMaternal GrandfatherMaternal GrandmotherMotherSister Social History Tobacco UseTypesPacks/DayYears UsedDateSmoking Tobacco: FormerCigarettes Smokeless Tobacco: Never Tobacco Cessation:Counseling Given: Not Answered Alcohol UseStandard Drinks/WeekCommentsYes0 (1 standard drink = 0.6 oz pure alcohol)social on weekendsChildcareAnswerDate PmoeixpjJseynhjmkAtxnnsj56/10/2019 EmploymentAnswerDate WsfcfuvlQroxfvvwoxBcyvqvv56/10/2019Hunger ScreeningAnswer Date RecordedWithin the past 12 months we worried whether our food would run out before we got money to buy more.Never True09/16/2023Within the past 12 months the food we bought just didn't last and we didn't have money to get more.Never True09/16/2023urpose - LifeAnswerDate RecordedPurpose and direction in life Wpysicm02/10/2021Estimated Date of HzxwaezcJhmmxwnnGvu59/28/2024Sex and Gender InformationValueDate RecordedSex Assigned at BirthNot on fileLegal Sex Jhhnqg9703/23/2015 12:11 PM EDTGender IdentityNot on fileSexual OrientationNot on file Last Filed Vital Signs Vital SignReadingTime TakenCommentsBlood Kbbfytcc440/7908 6:44 PM EDT Lnymf7443/18/2025 7:34 PM EJFOgbyuyjrnyq64.2 ??C (97.2 ??F)04/06/2025 6:44 PM EDTRespiratory Qjvr103204/06/2025 7:34 PM EDTOxygen Kdlnfofwyp96%04/06/2025 7:34 PM EDTInhaled Oxygen Concentration--Yiwikd60.5 kg (140 lb)04/06/2025 6:44 PM EDT Ibzcfp220.2 cm (5' 7 )04/06/2025 6:44 PM EDTBody Mass Index21.9304/06/2025 6:44 PM EDT Plan of Treatment Health MaintenanceDue DateLast DoneCommentsDepression Pxvjjvwxe65/15/2008Pap Smear, 02/22/2017Influenza Tplxqoq8104/20/2025dult BMI Mtfeplppl16Tobacco Ayszrucua32DTaP,Tdap and Td Vaccines (2 - Td or Tdap) Medical Devices Not on file Procedures Procedure NamePriorityDate/TimeAssociated DiagnosisCommentsPAP SMEARRoutine 08/01/2019 12:46 PM EST Cervical smear, as part of routine gynecological examination from Last 3 Months or Most Recently Relevant to Health Maintenance Results * Pap Smear (08/01/2019 12:46 PM EST)Specimen (Source)Anatomical Location / LateralityCollection Method / VolumeCollection TimeReceived Time08/01/2019 12:46 PM EST08/04/2019 12:46 PM EST Narrative COPATH - 08/05/2019 2:16 PM EST [facility] ? [address] ? [place] [address] ? Gynecologic Cytology Consultation ? Patient Name: BETTYE VELARDE : 1995 (Age: 23) Gender: F Taken: 08/01/2019 Reported: 08/05/2019 Physician(s): ANNELIESE MENDES ([phone]) Copy To: ?? [facility] Rec. #: [id number]: # [id number] Final Cytologic Interpretation ThinPrep Pap Test (Cervical): Satisfactory for evaluation. A transformation zone component is present. NEGATIVE FOR INTRAEPITHELIAL LESION OR MALIGNANCY. Shift in andrew suggestive of bacterial vaginosis. [place] [facility] [place]2019 Interpretation performed at [facility], [address] [place] [address], License number: [id number]. Electronically Signed Out By ?ALTHEA Machuca(ASCP) Date of Last Menstrual Period: ? Unknown Other Clinical Conditions: Z01.419 Mission Worker exam wo/abn findings Source of Specimen ??ThinPrep Pap Test (Cervical) ? Thin Prep Pap (CORPORATE STRATEGIST) Fee Code(s): ?? G0145 The Pap test is a screening test with an inherent, but low, probability of error. The Pap test is primarily effective for the diagnosis and prevention of squamous cell carcinoma. Regular screening iscritical for prevention. ThinPrep liquid-based slides, which meet the Geophysical Operator criteria for automated screening, have been screened by the ThinPrep Imaging System (as of 05/06/07) along with an additional manual rescreening by a public service administrator and, if indicated, by a pathologist. Authorizing ProviderResult TypeResult StatusAnneliese Mendes MDPATHOLOGY/CYTOLOGY ORDERABLESFinal ResultPerforming OrganizationAddressCity/State/ZIP CodePhone Number COPATH from Last 3 Months or Most Recently Relevant to Health Maintenance Insurance Care Teams Team MemberRelationshipSpecialtyStart DateEnd [facility], [facility] [address] [place], [place] PCP - GeneralFamily Medicine09/16/23
== END 2025-06-10 00:01 | disposition home or self-care (01) ==
LOC: LAB
PROVIDERS: PCP Midwife; Visit Provider Obstetrics & Gynecology
DX: N92.0 Excessive and frequent menstruation with regular cycle (principal)
CPT/HCPCS: 88305

== ENCOUNTER 2025-06-26 10:11 | Outpatient (OUT) | payer BC, OTHER, SELFPAY ==
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
--- OUTSIDE RECORDS SUMMARY | 2025-06-26 10:14 | XMS_ITS | Clinical Summary ---
Author Organization [facility] Address [address], [address] [place] [address] Care Team Providers Care Nuclear Supervising Operator Name Role Phone David Harley MD Primary Care Provider [phone] Allergies No known active allergies Medications MedicationSigDispense [...] delivery Resolved Problems ProblemNoted DateDiagnosed DateResolved DateTerm tmniqoyxt99 Immunizations ImmunizationAdministration DatesNext DueTD 5LF, TENIVAC, (age 7y+), IM, 0.5mL 12/02/2022 Social History Tobacco UseTypesPacks/DayYears UsedDateSmoking Tobacco: FormerSmokeless Tobacco: NeverAlcohol UseStandard Drinks/WeekCommentsNot Currently0 (1 standard drink = 0.6 oz pure alcohol)CommentsNoSex and Gender InformationValueDate RecordedSex Assigned at BirthNot on fileLegal TmuGqskqm21/10/2013 10:53 AM EST Gender IdentityNot on fileSexual OrientationNot on file Last Filed Vital Signs Vital SignReadingTime TakenCommentsBlood Yfxwxbcy141/5609 8:15 AM EDT Vzeni9578/ 3:32 PM UWCYjfstvdfftx67.8 ??C (98.2 ??F)12/02/2022 3:30 PM EDTRespiratory Qrkn929712/02/2022 3:32 PM EDTOxygen Sjhgdtxdes48%12/02/2022 3:32 PM EDTInhaled Oxygen Concentration--Omvqiv52.2 kg (135 lb)12/02/2022 3:32 PM EDT Iazqoz534.2 cm (5' 7 )12/02/2022 3:32 PM EDTBody Mass Index21.14012/02/2022 3:32 PM EDT Plan of Treatment Health MaintenanceDue DateLast DoneCommentsDepression Fqkfsn7410/04/2007Varicella vaccine (1 of 2 - 13+ 2-dose series)2008Hepatitis C fsoayr4010/04/2013 Hepatitis B vaccine (1 of 3 - 19+ 3-dose series)2014Pap smear2016 DTaP/Tdap/Td vaccine (1 - Tdap)Flu vaccine (#1)03/20/2025 COVID-19 Vaccine (1 - season)2025HIV arkopgClcahwwwo68/25/2021HPV vaccine (No Doses Required)CompletedHepatitis A vaccineAged OutNo [...] Kimblecount TypeRelation to PatientDate of BirthPhone Billing AddressPersonal/KwjmdhArer61/15/1996 [address] [place] [phone] Advance Directives * Full Code (Latest Code Status on File) Date ActivatedDate InactivatedComments05/01/2021 1:25 PM05/03/2021 3:25 PM * Full Code Date ActivatedDate InactivatedComments05/01/2021 9:06 AM05/01/2021 1:25 PM Care Teams Team MemberRelationshipSpecialtyStart DateEnd Date David Harley MD [address] [place] [address] [facility] - [facility]05/01/21
--- OUTSIDE RECORDS SUMMARY | 2025-06-26 10:14 | XMS_ITS | Patient Health Record ---
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 Stress is when someone feels tense, nervous, anxious, or can't sleep at nightbecause their mind is troubledA little bitpatient entered dataIn the past year have you spent more than 2 nights in a row in a skilled nursing, correction, half-way center, orjuvenile correctional facility?Nopatient entered dataAre you [...] Risk Notes Problem Thyroid disorder screening (1711 13942) Screening for thyroid disorder (Z13.29) ActiveconfirmedProblemDiabetes mellitus screening (457930277)Screening for diabetes mellitus (Z13.1)ActiveconfirmedProblemScreening for cardiovascular system disease (176919240)Screening for cardiovascular condition (Z13.6)Active confirmedProblemAdult health examination (491205539)Encounter for wellness examination in adult (Z00.00)ActiveconfirmedProblemViral screening (988547853) Encounter for hepatitis C screening test for low risk patient (Z11.59)Active confirmedProblemHuman immunodeficiency virus screening (572994761)Screening for HIV (human immunodeficiency virus) (Z11.4)ActiveconfirmedProblemRefractory migraine with aura (098428359)Intractable migraine with aura with status migrainosus (G43.111)ActiveconfirmedProblemThrombocytopenic disorder (609833670) Low platelet count (D69.6)Activeconfirmed Vital Signs Heart [...] > Encounters Encounter Location Date Provider Diagnosis [address] [id number] 04/07/2025 Luiza Green Intractable migrai ne with [...] pain, and better metabolism. Plan Of Treatment Next Appt Details Provider Name:Luiza bermudez, 08/24/2025 03:45:00 PM, [address], [place], [id number], Insurance Providers Payer Name Payer Address Payer Phone Subscriber Number Group Number Insured Name Patient Relationship to Insured Coverage Start Date Coverage End Date Neibert X [address] [place] [address] [id number] Loose, Bettye Self - patient is the insured [facility] [address] [place], [place] [phone], CorrineSelf - patient is the [id number] 2022Medicaid [facility] after [address] [place] [id number], CorrineSelf - patient is the insured 2022 Medical (General) History Medical History History ICD Code migraine headaches Surgical History Surgery Date(Month/Year) tonsillectomy
--- OUTSIDE RECORDS SUMMARY | 2025-06-26 10:14 | XMS_ITS | Encounter Summary ---
Author Organization [facility] Address [address] [place] [address] Care Team Providers Care Driver License Agent Name Role Phone Unallocated, Noms Provider Primary Care Provi clarita Encounter Details DateTypeDepartmentCare Team (Latest Contact Info)Lxchtapdxdm40/27/2025Orders Only ELBA Buenrostro OBYOSEPH [address] [place] [address] Mei MoransolSAINTE GENEVIEV[place], [place] [address] [place] [address] Social History Tobacco UseTypesPacks/DayYears UsedDateSmoking Tobacco: NeverSmokeless Tobacco: NeverAlcohol UseStandard Drinks/WeekCommentsYes0 (1 standard drink = 0.6 oz pure alcohol)caffeine: noneEdinburgh Depression ScaleAnswerDate Recorded [place] Depression Scale Psrxx2170/02/2024The thought of harming myself has occurred to me.Never4CommentsNoSex and Gender InformationValueDate RecordedSex Assigned at BirthNot on fileLegal SexFemale 11/01/2022 11:08 PM EDTGender IdentityNot on fileSexual OrientationNot on file documented as of this encounter Plan of Treatment Not on file documented as of this encounter Procedures Procedure NamePriorityDate/TimeAssociated DiagnosisCommentsENDOMETRIAL BIOPSY, SNUMEGXYBphkpnd03/22/2025 12:00 AM EDTdocumented in this encounter Results * ENDOMETRIAL BIOPSY, EXTERNAL (06/10/2025 12:00 AM EDT) Narrative Authorizing ProviderResult TypeResult StatusCorey Mary Anne DOLAB CYTOLOGY ORDERABLESFinal ResultPerforming OrganizationAddressCity/State/ZIP CodePhone Number EXTERNAL LAB documented in this encounter Visit Diagnoses Not on filedocumented in this encounter Care Teams Team MemberRelationshipSpecialtyStart DateEnd Date Unallocated, Noms Provider, [address] [place] [address] PCP - GeneralFamily Medicine12/10/24documented as of this encounter
--- OUTSIDE RECORDS SUMMARY | 2025-06-26 10:14 | XMS_ITS | Clinical Summary ---
Author Organization [facility] Address [address] [place] [address] Care Team Providers Care Video Presentation Operator Name Role Phone Unallocated, Noms Provider Primary Care Provi clarita Allergies No known active allergies Medications MedicationSigDispense QuantityRefillsLast FilledStart DateEnd DateStatus sertraline (Zoloft) 25 MG tablet Indications: examination following vaginal delivery ([facility])Take 1 tablet (25 mg) by mouth Daily 30 tablet 5Active norethindrone (Micronor) 0.35 MG tablet Take 1 tablet by mouth DailyActive sertraline (Zoloft) 25 MG tablet Indications:History of anxiety,History of depressionTake 1 tablet (25 mg) by mouth Daily 30 tablet 60Discontinued Encounters DateTypeDepartmentCare TlxkCsjpaeneazk19/27/20[place] [address] Olivia Moran MA 06/10/2025 2:30 [place] [address] Matias North DO Pre-op examination; Request for sterilization; Menorrhagia with regular cycle; Pelvic pain in female; Abnormal uterine bleeding; Dysplasia of cervix, high grade SIXTO 2; History of HPV infection; Papanicolaou smear of cervix with low risk human papillomavirus (HPV) DNA test loawogon01/23/2025 10:30 AM EDTConsult NOMSadiq Buenrostro OBN [address] [address] Matias North, Dysplasia of cervix, high grade SIXTO amboo flowsheet [facility] [address] [address] Matias North DO 04/28/2025Orders Only [address] [place] [phone] Jessica Padgett, NEHA Dysplasia of cervix, high grade SIXTO 2 (Primary Dx)04/24/2025Telephone [address] [phone] Jessica Padgett, NEHA 04/23/2025Results Follow-Up [facility] [address] [phone] Jessica Padgett, NEHA Tissue exam, POCT , urine manually akqxmxmo99/27/2025 9:30 AM EDT Procedure Visit [facility] [address] [phone] Jessica Padgett, NEHA History of HPV infection (Primary Dx); Papanicolaou smear of cervix with low risk human papillomavirus (HPV) DNA test nyhknmpq91/14/2025Results Follow-Up [address] [phone] Yaneli Kerr MA THINPREP IMAGING PAP AND HPV DNA REFLEX HPV 16,18004/02/2025Telephone [address] [phone] Yaneli Kerr MA from Last 3 Months Family History Medical HistoryRelationNameCommentsNo Known ProblemsDaughterLung cancerMaternal GrandfatherColon cancerMaternal GrandmotherRelationNameStatusCommentsDaughter AliveFatherAliveMaternal GrandfatherDeceasedMaternal GrandmotherAliveMotherAlive Paternal GrandfatherAlivePaternal GrandmotherAlive Social History Tobacco UseTypesPacks/DayYears UsedDateSmoking Tobacco: NeverSmokeless Tobacco: Never Tobacco Cessation:Counseling Given: Not Answered Alcohol UseStandard Drinks/WeekCommentsYes0 (1 standard drink = 0.6 oz pure alcohol)caffeine: noneEdinburgh Depression ScaleAnswerDate Recorded [place] Depression Scale Qqyip4300/02/2024The thought of harming myself has occurred to me.Never4CommentsNoSex and Gender InformationValueDate RecordedSex Assigned at BirthNot on fileLegal SexFemale 11/01/2022 11:08 PM EDTGender IdentityNot on fileSexual OrientationNot on file Last Filed Vital Signs Vital SignReadingTime TakenCommentsBlood Mpyyxkmg292/6006/10/2025 2:46 PM EDT Pulse--Temperature--Respiratory Rate--Oxygen Saturation--Inhaled Oxygen Concentration--Oaugbu22.4 kg (144 lb 1.9 oz)06/10/2025 2:46 PM DVSByfcou979.2 cm (5' 7 )11/15/2022 12:00 PM EDTBody Mass Index22.57011/15/2022 12:00 PM EDT Plan of Treatment Health MaintenanceDue DateLast DoneCommentsCOVID-19 Vaccine ( season) 2025Influenza Vaccine (#1)2025Pneumococcal Vaccine: Pediatrics (0 to 5 Years) and At-Risk Patients (6 to 64 Years)Aged OutNo longer eligible based on patient's age to complete this topic Procedures Procedure NamePriorityDate/TimeAssociated DiagnosisCommentsPOCT , URINE Lbltshe3106/10/2025 2:56 PM EDT Dysplasia of cervix, high grade SIXTO 2 History of HPV infection Papanicolaou smear of cervix with low risk human papillomavirus (HPV) DNA test positive ENDOMETRIAL BIOPSY, PQMBDUAYTcoqmiy26/22/2025 12:00 AM EDTTISSUE EXAMRoutine 04/15/2025 11:21 AM EDT History of HPV infection Papanicolaou smear of cervix with low risk human papillomavirus (HPV) DNA test positive POCT , ARUKIHimnble73/27/2025 11:03 AM EDT Papanicolaou smear of cervix with low risk human papillomavirus (HPV) DNA test positive from Last 3 Months Results * POCT , urine manually resulted (06/10/2025 2:56 PM EDT) Only the most recent of2 resultswithin the time period is included. ComponentValueRef RangeTest MethodAnalysis TimePerformed AtPathologist Signature Preg Test, UrNegativeNegativeSpecimen (Source)Anatomical Location / Laterality Collection Method / VolumeCollection TimeReceived SjvrKlzuc14/22/2025 2:56 PM EDT Narrative Authorizing ProviderResult TypeResult StatusCorey Mary Anne DOPOINT OF CARE TEST ENTER/EDIT ORDERABLESFinal Result * ENDOMETRIAL BIOPSY, EXTERNAL (06/10/2025 12:00 AM EDT) Narrative Authorizing ProviderResult TypeResult StatusCorey Mary Anne DOLAB CYTOLOGY ORDERABLESFinal ResultPerforming OrganizationAddressCity/State/ZIP CodePhone Number EXTERNAL LAB * Tissue exam (04/15/2025 11:21 AM EDT)ComponentValueRef RangeTest Method Analysis TimePerformed AtPathologist SignatureCLINICAL INFORMATIONQUEST Comment:[id number], [id number]: Fran Ham M.D. Board certified in Anatomic Pathology and Clinical Pathology (electronic signature) Pathologist Release Date/Time: 04/17/2025 02:31PM REPORT NOTESQUESTComment: All positive and negative immunohistologic controls stain appropriately. Performance characteristics of immunohistologic tests have been determined by the [facility] in a manner consistent with CLIA requirements. The [facility] is regulated under CLIA as qualified [...] B COMMENTQUESTComment: A p16 immunostain (performed at [facility]) shows weak but diffuse staining in an area of atypical epithelium, supporting the above diagnosis. Specimen (Source)Anatomical Location / LateralityCollection Method / Volume Collection TimeReceived HwlfTwqlgl99/27/2025 11:21 AM EDT04/16/2025 4:36 AM EDT Narrative [facility] - 04/17/2025 3:07 PM EDT SMALL FORMALIN X2 ENDOCERVIX; CERVIX, 6,9,12 O'CLOCK Resulting Agency Comment Performing Organization Information ?Site ID: [id number] ?Name: [facility] ?Address: [address] [place] [address], [place] [address] ?Director: Deidra Cody MD Authorizing ProviderResult TypeResult StatusValetray Padgett [facility] PATH[facility] ORDERABLESFinal ResultPerforming OrganizationAddressCity/State/ZIP CodePhone Number [facility] from Last 3 Months Insurance Care Teams Team MemberRelationshipSpecialtyStart DateEnd Date Unallocated, Noms Provider, [address] [place], [place] [address] PCP - GeneralFamily Medicine12/10/24
--- OUTSIDE RECORDS SUMMARY | 2025-06-26 10:14 | XMS_ITS | Clinical Summary ---
Author Organization [facility] Address [address] [place] [address] Care Team Providers Care Health Professional Name Role Phone David Harley MD Primary Care Provider [phone] Medications MedicationSigDispense QuantityRefillsLast FilledStart DateEnd DateStatus Levocetirizine (XYZAL) 5 mg ORAL tablet Take 5 mg by mouth daily at bedtime.Active predniSONE 10 mg ORAL tablet pack Take by mouth once daily.Active Active Problems ProblemNoted DateDiagnosed DateErythema jgtxdts7809/04/2011ESR ahlosx1809/04/2011 Social History Tobacco UseTypesPacks/DayYears UsedDateSmoking Tobacco: Some DaysCigarettes Comments:no one else in the home smokes Alcohol UseStandard Drinks/WeekCommentsNot Asked0 (1 standard drink = 0.6 oz pure alcohol)CommentsUnknownSex and Gender InformationValueDate Recorded Sex Assigned at BirthNot on fileLegal SjcZgmqsi03/02/2012 10:13 AM ESTGender IdentityNot on fileSexual OrientationNot on file Last Filed Vital Signs Vital SignReadingTime TakenCommentsBlood Lagkcoag919/58008/31/2011 11:04 AM EST Mjfvh3016/12/2012 11:04 AM VWILehooxxcuce97 ??C (98.6 ??F)08/31/2011 11:04 AM ESTRespiratory Rate--Oxygen Saturation--Inhaled Oxygen Concentration--Lhxviq07.1 kg (134 lb 11.2 oz)08/31/2011 11:04 AM PCFFqieqt489 cm (5' 5.35 )08/31/2011 11:04 AM ESTBody Mass Index22.17008/31/2011 11:04 AM EST Plan of Treatment Health MaintenanceDue DateLast DoneCommentsAnxiety Zqzwlemtu40/15/2014Depression Ivzpybvuc68/15/2014HIV Wjyrkievk19/15/2014Hepatitis C Ggwrusbqx36/15/2014 DTaP,Tdap,Td Vaccine (1 - Tdap)2014Hepatitis B Vaccine (1 of 3 - 19+ 3- dose series)2014Cervical Cancer Mtxxytqdi22/15/2017HPV Vaccine (1 - 3-dose SCDM series)3Covid-19 Vaccine (1 - 2024- season)2025Influenza Vaccine (#1)2025 Care Teams Team MemberRelationshipSpecialtyStart DateEnd David Harley MD PCP - GeneralFamily Medicine08/30/11
--- OUTSIDE RECORDS SUMMARY | 2025-06-26 10:14 | XMS_ITS | Patient Health Record ---
Author Organization [facility] [place] Address [address] [place] [address] Care Team Providers Care String Laster Name Role Phone Brady Harley Primary Care [...] Orally Once a day; Duration: 10 day(s) 03/07/20232110VzosihEatrkcaz-Zmoxznbrb-Jtceglhq 3.5-53265-6.11 drop into affected eye Ophthalmic Four times [...] containing alcohol in the past year?Monthly (2 points)Eiylsw7PnttpyiprrbbglSepcegit Problems Problem Type SNOMED Code ICD Code Onset Dates Problem Status W/U Status Risk Notes Problem Erythema nodosum (07867485) Erythema nodo sum (L52) ActiveconfirmedProblemStrain of back muscle (938544314)Sprain of joints and ligaments of unspecified parts of neck, initial encounter (S13.9XXA)Active confirmedProblemAbdominal pain (93528144)Abdominal pain (R10.9)Activeconfirmed ProblemWell child visit (869648322)Well child check (Z00.129)Activeconfirmed ProblemBronchitis (88381540)Bronchitis (J40)ActiveconfirmedProblemSinusitis (14500030)Sinusitis (J32.9)ActiveconfirmedProblemOtitis media (29488924)Otitis media (H66.90)ActiveconfirmedProblemPharyngitis (208072345)Pharyngitis (J02.9) ActiveconfirmedProblemConjunctivitis (0792250)Conjunctivitis (H10.9)Active confirmedProblemLimb pain (18902723)Limb pain (M79.609)ActiveconfirmedProblem Pruritus (752350171)Pruritus (L29.9)ActiveconfirmedProblemStreptococcal sore throat (disorder) (97523118)Strep pharyngitis (J02.0)ActiveconfirmedProblem Gastroenteritis (76675052)Gastroenteritis (K52.9)ActiveconfirmedProblemPhysical examination procedure (5922094)Physical exam, routine (Z00.00)Activeconfirmed ProblemViral wart (75504447)Other specified viral warts (B07.8)Activeconfirmed Plan Of Treatment Pending Test Test Name Order Date GROUP A STREP CULTURE 03/07/2023 STREPT SCREEN 03/07/2023 Insurance Providers Payer Name Payer Address Payer Phone Subscriber Number Group Number Insured Name Patient Relationship to Insured Coverage Start Date Coverage End Date [employer] [place] [employer] [address] [place] [address] [id number] Loose, CorrineSelf - patient is the [id number] 2022 Medical (General) History Medical History History ICD Code Sinusitis J32.9 Physical exam, routine Z00.00 Erythema nodosum L52 Pruritus L29.9 Bronchitis J40 Abdominal pain R10.9 Conjunctivitis H10.9 Other specified viral warts B07.8 Limb pain M79.609 Gastroenteritis K52.9 Well child check Z00.129 Otitis media H66.90 Pharyngitis J02.9
--- OUTSIDE RECORDS SUMMARY | 2025-06-26 10:15 | XMS_ITS | Clinical Summary ---
Author Organization [facility] Address [id number] [address] [place] [address] Care Team Providers Care Manager Of Sales Name Role Phone Services, [facility] Primary Care Provider Allergies Active AllergyReactionsCriticalityNoted DateCommentsAmoxicillin-Pot Clavulanate Gbrkdypb05/13/2019 Medications MedicationSigDispense QuantityRefillsLast FilledStart DateEnd DateStatus SPRINTEC, [...] as needed for pain. 30 tablet 12/03/2022ctive norethindrone-e.estradioL-iron (JUNEL FE ,) 1 mg-20 mcg (21)/75 mg (7) per tablet Take 1 tablet by mouth in the morning. 1 TABLET ORALLY ONCE A DAY.Active sertraline (ZOLOFT) 25 mg tablet Take 1 tablet (25 mg total) by mouth in the morning.Expired HYDROcodone-acetaminophen (NORCO) 5-325 mg per tablet Indications:Acute left ankle painTake 1 tablet by mouth every 8 (eight) hours as needed for pain for up to 3 days. Max Daily Amount:3 tablets 9 tablet Expired Active Problems ProblemNoted DateDiagnosed QbvjUqjtzcbqdttxtlej04/23/2021Normocytic anemia 03/11/2021H/O seasonal allergiesHeadacheEstimated Date of Delivery HgoyyrmpUsl11/28/2024 Encounters DateTypeDepartmentCare GctxVpwtwxihomg04/01/2025 11:28 AM EDT - 06/20/2025 1:12 PM EDTEmergency [facility] [address] [place] [address] Donnie Wright DO Acute left ankle pain (Primary Dx) Discharge Disposition: Home04/06/2025 6:40 PM EDT - 04/06/2025 7:36 PM EDT Emergency [facility] [address] [place] [address] Torsten Waller MD Other migraine without status migrainosus, not intractable (Primary Dx) Discharge Disposition: Homefrom Last 3 Months Family History Medical HistoryRelationNameCommentsLung cancerMaternal GrandfatherColon cancer Maternal GrandmotherBlood ClotsMotherOtherMotherhormonal issuesUrinary tract infectionSisterRelationNameStatusCommentsMaternal GrandfatherMaternal GrandmotherMotherSister Social History Tobacco UseTypesPacks/DayYears UsedDateSmoking Tobacco: FormerCigarettes Smokeless Tobacco: Never Tobacco Cessation:Counseling Given: Not Answered Alcohol UseStandard Drinks/WeekCommentsYes0 (1 standard drink = 0.6 oz pure alcohol)social on weekendsChildcareAnswerDate BtfhqxkgHaqyxkqfyOgalvno98/10/2019 EmploymentAnswerDate AxzfwtvnTqhmdzzvtiOzfciwe19/10/2019Hunger ScreeningAnswer Date RecordedWithin the past 12 months we worried whether our food would run out before we got money to buy more.Never True09/16/2023Within the past 12 months the food we bought just didn't last and we didn't have money to get more.Never True09/16/2023urpose - LifeAnswerDate RecordedPurpose and direction in life Tdckqxm9009/29/2020Estimated Date of SaoyqlyhVakbggomJay57/28/2024Sex and Gender InformationValueDate RecordedSex Assigned at BirthNot on fileLegal Sex Vndnci7603/23/2015 12:11 PM EDTGender IdentityNot on fileSexual OrientationNot on file Last Filed Vital Signs Vital SignReadingTime TakenCommentsBlood Hxvnlsfj664/8406/20/2025 11:29 AM EDT Dqrfy330906/20/2025 11:29 AM HKPMemtdvxmksg41.6 ??C (97.9 ??F)06/20/2025 11:29 AM EDTRespiratory Xyhw891608/20/2024 11:29 AM EDTOxygen Yeicbzafbe555%06/20/2025 11:29 AM EDTInhaled Oxygen Concentration--Etlfoa18.5 kg (140 lb)06/20/2025 11:29 AM UGFOjltin685.2 cm (5' 7 )06/20/2025 11:29 AM EDTBody Mass Index21.93 06/20/2025 11:29 AM EDT Plan of Treatment Health MaintenanceDue DateLast DoneCommentsDepression Ezmilkxhq74/15/2008Pap Smear, 02/22/2017DTaP,Tdap and Td Vaccines (1 - Tdap) /Influenza Pybscro5404/20/2025Tobacco Edtxvnkmh73/18/2026 04/06/2025dult BMI Vxysxamum01RSV ( or age 60+ yrs) (1 - 1-dose 75+ series)2070 [employer] Not on file Procedures Procedure NamePriorityDate/TimeAssociated DiagnosisCommentsXR ANKLE LT MIN 3 VWS STAT108/20/2024 12:18 PM EDT PAP KTDREEdorcnd07/13/2019 12:46 PM EST Cervical smear, as part of routine gynecological examination from Last 3 Months or Most Recently Relevant to Health Maintenance Results * X-ray ankle left minimum 3 [...] on 06/20/2025 12:21 PM Authorizing ProviderResult TypeResult StatusMichael Tala Wright LDS [facility] ORDERABLESFinal Result * Pap Smear (08/01/2019 12:46 PM EST)Specimen (Source)Anatomical Location / LateralityCollection Method / VolumeCollection TimeReceived Time08/01/2019 12:46 PM EST08/04/2019 12:46 PM EST Narrative COPATH - 08/05/2019 2:16 PM EST [facility] ? [address] ? [place], [place] [address] ? Gynecologic Cytology Consultation ? Patient Name: BETTYE VELARDE : 1995 (Age: 23) Gender: F Taken: 08/01/2019 Reported: 08/05/2019 Physician(s): LAURA MENDES ([phone]) Copy To: ?? Med. Rec. #: [id number]: # [id number] Final Cytologic Interpretation ThinPrep Pap Test (Cervical): Satisfactory for evaluation. A transformation zone component is present. NEGATIVE FOR INTRAEPITHELIAL LESION OR MALIGNANCY. Shift in andrew suggestive of bacterial vaginosis. ?? [facility]/08/05/2019 Interpretation performed at [facility], [address] [place] [address], License number: [id number]. Electronically Signed Out By ?ALTHEA Machuca(ASCP) Date of Last Menstrual Period: ? Unknown Other Clinical Conditions: Z01.419 Kelp Cutter exam wo/abn findings Source of Specimen ??ThinPrep Pap Test (Cervical) ? Thin Prep Pap (MANAGER ACTUARIAL) Fee Code(s): ?? G0145 The Pap test is a screening test with an inherent, but low, probability of error. The Pap test is primarily effective for the diagnosis and prevention of squamous cell carcinoma. Regular screening iscritical for prevention. ThinPrep liquid-based slides, which meet the Integration Lead criteria for automated screening, have been screened by the ObjectWayPrep Imaging System (as of 05/06/07) along with an additional manual rescreening by a glass tube bender and, if indicated, by a pathologist. Authorizing ProviderResult TypeResult Elena Mendes MDPATHOLOGY/CYTOLOGY ORDERABLESFinal ResultPerforming OrganizationAddressCity/State/ZIP CodePhone Number COPATH from Last 3 Months or Most Recently Relevant to Health Maintenance Insurance Care Teams Team MemberRelationshipSpecialtyStart DateEnd [facility], [facility], [facility] [address] [place], [place] PCP - GeneralFamily Medicine09/16/23
--- OUTSIDE RECORDS SUMMARY | 2025-06-26 10:20 | XMS_ITS | CCD ---
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 discharge Unprotected sex Ordered: 12/10/2024[facility] HealthcareComment on above:Ordered: 04/23/2025Hepatitis C virus Ab [Presence] in Serum or Plasma by ImmunoassayHepatitis C antibody Lab Routine Vaginal discharge Unprotected sex Ordered: 12/10/2024[facility] HealthcareComment on above:Ordered: 12/10/2024 HIV-1/HIV-2 antigen/antibody combination immunoassayHIV-1 and HIV-2 antibodies Lab Routine Vaginal discharge Unprotected sex Ordered: 12/10/2024[facility] Comment on above:Ordered: 12/10/2024Tissue examTissue exam Pathology and Cytology Routine Dysplasia of cervix, high grade SIXTO 2 History of HPV infection Papanicolaou smear of cervix with low risk human papillomavirus (HPV) DNA test positive Ordered: 06/10/2025[facility] [employer] Work Phone: comment on above:Ordered: 06/10/2025VAGINITIS (HTRX) VAGINITIS (HTRX) Lab Routine Vaginal discharge Ordered: 12/10/2024[facility] [employer] Work Phone: Comment on above:Ordered: 12/10/2024 Immunizations Immunization DateImmunizationNotesCare ZeryharzEzjnvdsa50-16-7720ajbjtkkmrf and tetanus toxoids, adsorbed for pediatric useAntionette Quincy [employer] Work Phone: [facility] Work Phone: [phone] and diphtheria toxoids, adsorbed, preservative free, for adult use (5 Lf of tetanus toxoid and 2 Lf of diphtheria toxoid)Antionette Mathew [employer] Work Phone: [phone]uzqjt, tetanus toxoids and acellular pertussis vaccine, unspecified formulationValerie [facility] APPLICATION DEVELOPERSAN [facility] Work Phone: [facility] Work Phone: [phone]qkvv, mumps and rubella virus vaccine [employer]omasa [employer] APPLICATION DEVELOPER - [facility] Work Phone: [facility] Work Phone: Payers DatePayer CategoryPayerPolicy [id number] Cross Blue ShieldBCBS Member Subscriber Plan / Payer (Effective 2025-Present) Name: Vicente Kimble Relation to Subscriber: Self Name: Vicente Kimble PayerID: Not on file Type: Not on file Address: [address] [place] [id number] [id number] Health Insurance [id number] 2023MedicaidBU[place] MED[place]ID [place] [id number] 2022-Present [address] [facility] [place] [id number] Medicaid (Managed Care)[place] [id number] 87-13-4969Rdmdtrn Health [id number] .1.644731.3.57[id number] .1.522035.3.57[id number] 2.16.840.1.922537.3.57[id number] 2.16.840.1.838865.3.57[id number] 2.16.840.1.586790.3.57[id number] 2.16.840.1.936599.3.57[id number] 2.16.840.1.282269.3.57[id number] 2.16.840.1.922493.3.57[id number] 2.16.840.1.126303.3.57[id number] 2.16.840.1.882743.3.57[id number] 2.16.840.1.424138.3.57[id number] 2.16.840.1.115387.3.57[id number] 2.16.840.1.006228.3.57[id number] 1.2.840.978121.1.13.239.2.7.3.697361.315 Social History DateTypeDetailFacilityStart: 73-40-6642Bitehtx smoking status NHISFormer smoker [employer] Phone: start: 05-01-2021 End: 65-61-1975Cljlmip use and exposureNever [facility] HealthStart: 05-01-2021 Alcohol intakeEx-drinker (finding)[employer] Phone: start: 02-54-8560Tvg Assigned At BirthNot on [facility] Work Phone: start: 72-80-9009Stfewtr smoking status NHISNever smoked tobaccoNOMS HealthcareStart: 09-05-2023 End: 34-97-3826Jtlfjig intakeLifetime non-drinker (finding)[facility] HealthcareStart: 09-05-2023 End: 70-76-0031Zjecfby of Social functionNOMS HealthcareStart: 09-05-2023 End: 93-23-5257Uvohanw use panelNOMS HealthcareStart: 53-41-7554Aqnqkwq Comment caffeine: noneNOMS HealthcareStart: 49-35-8299EahkrnuzpSHOO HealthcareThe thought of harming myself has occurred to meNeverNOSC HealthcareHistory of tobacco useCurrent smokerWYANDOT Work Phone: start: 12-10-2024 End: 89-41-5224Hnqazbafz beverage intakeCurrent drinker of alcohol (finding)[facility] HealthcareStart: 59-45-7583OjySwrkuuBDSW HealthcareStart: 41-34-4943Uihqthm smoking status NHISSmokes tobacco daily (finding)[facility] HospitalexFemale (finding)[facility] Hospitaltart: 11-01-2066Zhq [facility]igned At [facility] Clinical Notes 05-03-2021 to 06-20-2025 Note Date & RtsfEegrKyuxrrvp65-29-4287 NoteXR ANKLE LT MIN 3 VWS Procedure: Left ankle radiographs performed Number of views:3 History:Ankle pain Comparison:None Impression: 1. There is a bony fragment at the distal tip of the fibula which partially appears well corticated. I cannot exclude an acute avulsion fracture. Please correlate for point tenderness. There is surrounding soft tissue swelling. There is no dislocation. Finalized by Dionte Lehman MD on 06/20/2025 12:21 [facility] 06-10-2025 History of Present illness Narrative* Alla Vasquez - 06/10/2025 2:30 PM EDT Reason for Appointment: Patient ID: Vicente Kimble is a 29 y.o. female who presents for histpry of HPV infection, Pre-op Visit, Dysplasia of cervix, and Endometrial Biopsy Patient presents today for Pre Op/Endometrial Biopsy appointment. Patient is scheduled to undergo Da Vera assisted Bilateral Laparoscopic Salpingectomy, Endometrial Ablation with Betzaida, and LEEP on 07/06/[address] North at [facility]. MEDICATIONS Current Outpatient Medications Medication Instructions norethindrone [...] nursing note reviewed. Exam conducted with a refractory grinder operator present. Vitals: Estimated body mass index is 22.57 kg/m as calculated from the following: Height as [...] reviewed, and patient is to proceed to [facility] OR. Follow Up: Patient is to follow up between 1-2 weeks post op to assess proper healing and recovery from procedure. Documented by Mulu Watts LPN on behalf of: Matias North DO documented in this encounterMissouri Southern HealthcareAzxpvlhigi39-92-8997 History of Present illness Narrative* BREANNA Yoo - 05/12/2025 10:30 AM EDT Reason for Appointment: Patient ID: Vicente Kimble is a 29 y.o. female who presents for SIXTO 2 Tx Consult Patient presents today for Acute Visit. MEDICATIONS Current Outpatient Medications Medication Instructions ibuprofen 800 mg, Oral, Every 8 hours PRN norethindrone (Micronor) 0.35 MG tablet 1 tablet, Daily sertraline (ZOLOFT) 25 mg, Oral, Daily sertraline (ZOLOFT) 25 mg, Oral, Daily ALLERGIES Allergies Allergen Reactions Amoxicillin-Pot Clavulanate GI intolerance and Rash PROBLEMS Active Ambulatory Problems Diagnosis Date Noted No Active Ambulatory Problems Resolved Ambulatory Problems Diagnosis Date Noted No Resolved Ambulatory Problems No Additional Past Medical History HISTORY PAST MEDICAL HISTORY SOCIAL HISTORY No past medical history on file. Social History Tobacco Use Smoking status: Never Smokeless tobacco: Never Substance Use Topics Alcohol use: Yes Comment: caffeine: none Drug use: Never FAMILY HISTORY Family History Problem Relation Name Age of Onset Colon cancer Maternal Grandmother Lung cancer Maternal Grandfather No Known Problems Daughter SURGICAL HISTORY No past surgical history on file. REVIEW OF SYSTEMS Review of Systems: Review of Systems Constitutional: Negative. HENT: Negative. Eyes: Negative. Respiratory: Negative. Cardiovascular: Negative. Gastrointestinal: Negative. Genitourinary: Negative. Musculoskeletal: Negative. Skin: Negative. Neurological: Negative. All other systems reviewed and are negative. Hematological: Negative. Endocrine: Negative. Allergic/Immunologic: Negative. OBJECTIVE Objective: Physical Exam Constitutional: Appearance: Normal appearance. She is normal weight. HENT: Head: Normocephalic. Cardiovascular: Rate and Rhythm: Normal rate. Pulses: Normal pulses. Pulmonary: Effort: Pulmonary effort is normal. Breath sounds: Normal breath sounds. Abdominal: Palpations: Abdomen is soft. Musculoskeletal: General: Normal range of motion. Neurological: General: No focal deficit present. Mental Status: She is alert and oriented to person, place, and time. Psychiatric: Mood and Affect: Mood normal. Behavior: Behavior normal. Thought Content: Thought content normal. Judgment: Judgment normal. Vitals and nursing note reviewed. Vitals: Estimated body mass index is 21.85 kg/m as calculated from the following: Height as of 11/15/22: 5' 7 . Weight as of this encounter: 139 lb 8 oz. BP: 106/72 Patient's last menstrual period was 04/02/2025 (exact date). ASSESSMENT & PLAN ICD-10-CM 1. 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 Patient wishes to also have tubal and ablation at time of LEEP due to heavy bleeding and dysmenorrhea. Patient will be scheduled for procedure. Discussion of risks and benefits with patient. Documented by BREANNA Yoo on behalf of: Matias North DO documented in this [facility]09-15-2025 Telephone encounter Note* Telephone Encounter - Lisa Gao - 05/04/2025 2:37 PM EDT Pt called and left a vm wanting to speak with you <3 [facility] HealthcareMnabadsuba62-55-8883 Miscellaneous Notes* Telephone Encounter - Lisa Gao - 05/04/2025 2:37 PM EDT Pt called and left a vm wanting to speak with you <3 documented in this [facility]09-05-2025 Telephone encounter Note* Telephone Encounter - Angy Boucher - 04/24/2025 12:51 PM EDT Pt has questions regarding test results please return call [facility] HealthcareFcvvzlpvcw24-06-3280 Miscellaneous Notes* Telephone Encounter - Angy Boucher - 04/24/2025 12:51 PM EDT Pt has questions regarding test results please return call documented in this [facility]08-27-2025 History of Present illness Narrative* Tomasa Padgett CNM - 04/15/2025 9:30 AM EDT Colposcopy: Patient is doing well and has no complaints. Pap results have been reviewed with the patient in great detail and patient voiced understanding. Patient presents today for a Colposcopy with ECC. Patient was placed in dorsal lithotomy position with feet in stirrups, a sterile speculum was placed into the vagina and the cervix was visualized. Cervix was cleansed with betadine swab. Sterile ECC instrument was introduced into cervical os and ECC biopsy obtained without difficulty. 5% acetric acid wasthen placed onto the cervix for 2-3 mins. Sterile mini tischler was used to obtain biopsies from 6:00, 9:00, 12:00 without difficulty. Hemostasis noted at the end of procedure. Patient tolerated proce dure well. Postprocedural instructions given and patient is to avoid intercourse for seven days, and if bleeding is enough to change a pad every hour patient should go to the nearest ED. All if patients questions answered and she expressed understanding. Advised to call in interim with questions orconcerns. Follow Up: Patient is to return for repeat annual Pap or sooner depending on colposcopyresults. documented in this [facility]08-05-2025 History of Present illness Narrative* Tomasa Padgett CNM - 03/24/2025 9:30 AM EDT YEARLY HPI: This is a established patient. Chief Complaint Patient presents with Follow-up Here for annual exam. OB History Para Term AB Living 2 2 1 2 SAB IAB Ectopic Multiple Live Births 2 # Outcome Date GA Lbr Rajesh/2nd Weight Sex Type Anes PTL Lv 2 Term 04/05/24 38w3d 6 lb 6 oz M Vag-Spont N PAYAL 1 Para 5 lb 13 oz Vag-Spont Y PAYAL PARTITION SETTER complaints: no Changes in healthsince last visit: no Surgeries or hospitalizations since last visit: no control method: ocp Menses: irregular Last pap: 11/11/20 normal Other: History: History reviewed. No pertinent past medical history. History reviewed. No pertinent surgical history. Family History Problem Relation Name Age of Onset Colon cancer Maternal Grandmother Lung cancer Maternal Grandfather No Known Problems Daughter Allergies: Allergies Allergen Reactions Amoxicillin-Pot Clavulanate GI intolerance and Rash Medications: Current Outpatient Medications on File Prior to Visit Medication Sig Dispense Refill norethindrone (Micronor) 0.35 MG tablet Take 1 tablet (0.35 mg) by mouth Daily 90 tablet 1 sertraline (Zoloft) 25 MG tablet Take 1 tablet (25 mg) by mouth Daily 30 tablet 0 sertraline (Zoloft) 25 MG tablet Take 1 tablet (25 mg) by mouth Daily 30 tablet 6 [DISCONTINUED] azithromycin (Zithromax) 250 MG tablet Take 500 mg po on day #1, and then 250 mg po on days 2-5 6 tablet 0 No current facility-administered medications on file prior to visit. ROS: Review of Systems All other systems reviewed and are negative. There were no vitals filed for this visit. Physical exam: Physical Exam Vitals reviewed. Constitutional: Appearance: Normal appearance. HENT: Head: Normocephalic. Right Ear: Tympanic membrane normal. Left Ear: Tympanic membrane normal. Mouth/Throat: Mouth: Mucous membranes are moist. Eyes: Pupils: Pupils are equal, round, and reactive to light. Cardiovascular: Rate and Rhythm: Normal rate and regular rhythm. Pulses: Normal pulses. Heart sounds: Normal heart sounds. Pulmonary: Effort: Pulmonary effort is normal. Breath sounds: Normal breath sounds. Chest: Breasts: Right: Normal. Left: Normal. Abdominal: General: Abdomen is flat. Bowel sounds are normal. Palpations: Abdomen is soft. Tenderness: There is no abdominal tenderness. Genitourinary: General: Normal vulva. Exam position: Lithotomy position. Vagina: Normal. No tenderness. Cervix: Normal. No cervical motion tenderness. Uterus: Normal. Adnexa: Right adnexa normal and left adnexa normal. Musculoskeletal: General: Normal range of motion. Cervical back: Normal range of motion and neck supple. Skin: General: Skin is warm and dry. Neurological: General: No focal deficit present. Mental Status: She is alert and oriented to person, place, and time. Psychiatric: Mood and Affect: Mood normal. Assessment and Plan: 1. Annual exam 2. SBE discussed: Yes 3. Diet and exercise discussed: Yes 4. Wt control discussed: No 5. Safe sex discussed: No There are no diagnoses linked to this encounter. Patient has small inclusion cyst on her mons that she has expressed and states that some stuff didcome out it's about 0.,5 cm and hard base. Nothing expressed at this time. She does not want antibiotic at this time. Did encourage her to take warm baths and see if it'll drain. Its skin colored, and no fluid filled head to it. She will call if it gets worse. No follow-ups on file. There are no Patient Instructions on file for this visit. Lorene Lindsay MA, 03/24/2025 9:39 AM documented in this encounterMissouri Southern [id number] History of Present illness Narrative* Tomasa Padgett CNM - 12/15/2024 2:37 PM EDT Patient stopped in office and stated she has no refills on her Zoloft. RX sent to pharmacy documented in this [facility]04-23-2025 History of Present illness Narrative* Tomasa Padgett CNM - 12/10/2024 1:00 PM EDT PROBLEM VISIT Vicente Kimble is 29 y.o. a patient of [facility] CARE PROFESSIONAL Here for std testing Last pap: 2020 Last mammogram: Patient's last menstrual period was 12/05/2024 (exact date). History: History reviewed. No pertinent past medical history. History reviewed. No pertinent surgical history. Family History Problem Relation Name Age of Onset Colon cancer Maternal Grandmother Lung cancer Maternal Grandfather No Known Problems Daughter @[email or web address]@ Allergies: Allergies Allergen Reactions Amoxicillin-Pot Clavulanate Rash and GI intolerance Medications: Current Outpatient Medications on File Prior to Visit Medication Sig Dispense Refill norethindrone (Micronor) 0.35 MG tablet Take 1 tablet (0.35 mg) by mouth Daily 90 tablet 1 sertraline (Zoloft) 25 MG tablet Take 1 tablet (25 mg) by mouth Daily 30 tablet 0 No current facility-administered medications on file prior to visit. There were no vitals filed for this visit. HPI: ROS: Review of Systems Physical exam: Physical Exam Pulmonary: Effort: Pulmonary effort is normal. Breath sounds: Examination of the left-upper field reveals wheezing. Wheezing present. No rhonchi. Abdominal: General: Abdomen is flat. Bowel sounds are normal. Palpations: Abdomen is soft. Tenderness: There is no abdominal tenderness. Assessment and Plan: There are no diagnoses linked to this encounter. Patient needs PCP and to follow up with someone She is sick today and URI noted. Wheezes in her upper left lobe, clears with deep inhalation and exhalation. She is tearful in speaking about ex-boyfriend who has been with multiple women. She stateshe is back in residential and going to assisted for probably 3-5 years for selling drugs and guns. She states she is so upset that he's been with multiple women and all of this was going on and she didn't have a clue. His chief supply chain officer told her all of the information. She was at a probation hearing withhim and when she left the room so they could speak with him then they told her some information regarding the cheating and his locations at different times. She does need counseling and also I will see if she can be seen by TRAILER TECHNICIAN here so she has a PCP to follow up with. No follow-ups on file. There are no Patient Instructions on file for this visit. Lorene Lindsay MA,12/10/2024 1:16 PM documented in this encounterMissouri Southern [id number] History of Present illness Narrative* Tomasa Padgett CNM - 09/22/2024 6:30 PM EST PROBLEM VISIT Vicente Kimble is 28 y.o. a patient of [facility] Here for follow up on med Zoloft. Last pap: 2020 and will have one done at next appt Last mammogram: n/a No LMP recorded. (Menstrual status: No Periods). History: History reviewed. No pertinent past medical history. History reviewed. No pertinent surgical history. Family History Problem Relation Name Age of Onset Colon cancer Maternal Grandmother Lung cancer Maternal Grandfather No Known Problems Daughter @[email or web address]@ Allergies: Allergies Allergen Reactions Amoxicillin-Pot Clavulanate Rash and GI intolerance Medications: Current Outpatient Medications on File Prior to Visit Medication Sig Dispense Refill norethindrone (Micronor) 0.35 MG tablet Take 1 tablet (0.35 mg) by mouth Daily 90 tablet 3 sertraline (Zoloft) 25 MG tablet TAKE 1 TABLET BY MOUTH EVERY DAY 30 tablet 0 [DISCONTINUED] sertraline (Zoloft) 25 MG tablet TAKE 1 TABLET BY MOUTH EVERY DAY 30 tablet 1 No current facility-administered medications on file prior to visit. There were no vitals filed for this visit. HPI: patients boyfriend was in residential and was incarcerated when her baby was born. She went through alot of sadness, anxiety and depression for several months. She is currently on Zoloft and doing well. ROS: Review of Systems All other systems reviewed and are negative. Physical exam: Physical Exam Cardiovascular: Rate and Rhythm: Normal rate and regular rhythm. Heart sounds: Normal heart sounds. Pulmonary: Effort: Pulmonary effort is normal. Breath sounds: Normal breath sounds. Patient denies sadness, depression, suicidal ideations, feeling great. States her boyfriend is out of residential and back home and they are doing well. She is and doing well and would like refills on her OCPs. RX sent Assessment and Plan: There are no diagnoses linked to this encounter. No follow-ups on file. There are no Patient Instructions on file for this visit. Lorene Lindsay MA,09/22/2024 6:22 PM documented in this encounterMissouri Southern [id number] History of Present illness Narrative* Tomasa Padgett CNM - 06/19/2024 11:00 AM EDT Vicente Kimble is here for visit. She is 10 weeks . Complaints: has no unusual complaints Weeks at delivery: 38 week Type of delivery: Vaginal, Spontaneous Delivery; Gender: male Baby is healthy: yes Breast or bottle feeding: breast and bottle Complaints or complications: no complications mood: well EPDS score at 8 weeks pp is 7 Contraception: Resumed Sexual activity: Resumed Menses: yes EXAM: GENERAL APPEARANCE: alert, well appearing, in no apparent distress Doing well with the Zoloft and also counseling, she feels she is not as snappish, she reacts differently and feels she's in her own head space again can rationalize everything. When she argues withher baby's dad from residential, she feels she's not as anxious or angry when speaking with him. Continue medication and counseling and I will see her in 4 months ASSESSMENT/PLAN: There are no diagnoses linked to this encounter. normal exam documented in this encounterMissouri Southern [id number] History of Present illness Narrative* Tomasa Padgett CNM - 05/21/2024 1:30 PM EDT Vicente Kimble is here for visit. She is 6 weeks . Complaints: has no unusual complaints Weeks at delivery: 38 week Type of delivery: Vaginal, Spontaneous Delivery; Gender: male Baby is healthy: yes Breast or bottle feeding: breast Complaints or complications: no complications mood: well EPDS score at 6 weeks pp 10 Contraception: OCPs Resumed Sexual activity: no Resumed Menses: no EXAM: GENERAL APPEARANCE: alert, well appearing, in no apparent distress ASSESSMENT/PLAN: There are no diagnoses linked to this encounter. Patient is struggling post with some stress, emotions and anxiety. She is in touch with the FOB who is in residential, and she is sad he's not here, that she went through childbirth alone, without him, that he cheated and then stole a trailer and went residential. She does want to start meds, and she is currently in counseling. They will do couples counseling when he gets out of residential, but for now she wants to work on herself. Baby care is going well, she is bonding good, and has enough supply. She denies suicidal ideations. I want to see her in 4 weeks. normal exam documented in this encounterMissouri Southern [id number] History of Present illness Narrative* Tomasa Padgett CNM - 04/22/2024 1:45 PM EDT Vicente Kimble is here for visit, it is a telemed visit She is 2 weeks . Complaints: has no unusual complaints Weeks at delivery: full term Type of delivery: Vaginal, Spontaneous Delivery; Gender: male Baby is healthy: yes Breast or bottle feeding: breast Complaints or complications: no complications mood: sad, states she cries at least once a day. She is in a stressful situation with the FOB, he is currently incarcerated and has not seen the baby and was not in attendance for his . He also was seeing another girl the last few months of her . She said she is a little stressed, he wants to come back to her and be a father and it stresses her out as to what she will do.She does have headaches and states it goes away with Tylenol. I did advise her to contact the office immediately if she has headaches worsening or not relieved by Tylenol, visual changes, epigastric pain. I did advise her to try Tylenol for headaches before motrin, and also she can try Magnesium 400 mg daily. PO Contraception: Resumed Sexual activity: no Resumed Menses: no EXAM: GENERAL APPEARANCE: alert, well appearing, in no apparent distress ASSESSMENT/PLAN: There are no diagnoses linked to this encounter. normal exam documented in this encounterMissouri Southern [id number] History of Present illness Narrative* Tomasa Padgett CNM - 03/26/2024 10:00 AM EDT Subjective No chief complaint on file. Vicente Kimble is a 28 y.o. at 37w0d with a working estimated date of delivery of 04/16/2024, by Last Menstrual Period who presents for a routine visit. She denies vaginal bleeding, leakage of fluid, decreased movements, or contractions. OB History Para Term AB Living 2 1 1 SAB IAB Ectopic Multiple Live Births # Outcome Date GA Lbr Rajesh/2nd Weight Sex Type Anes PTL Lv 2 Current 1 Para 5 lb 13 oz Vag-Spont Her is complicated by: social stress with boyfriend. Currently incarcerated. Patient willbe having a tight rope walker for labor. Objective Physical Exam weight: 158 lb Expected Total Weight Gain: 25 lb-35 lb Pregravid BMI: 21.45 BP: 118/78 Urine protein-negative Urine glucose-negative Assessment/Plan Diagnoses and all orders for this visit: Encounter for supervision of other normal , third trimester screening for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
--- NOTE | 2025-06-26 10:31 | XR_ITS ---
[address] [address] Patient Name: VICENTE VELARDE MRN: [id number] date: 1995 Sex: F Assigned Patient Location: [facility] Current Patient Location: [facility] Accession/Order Number: [id number] Exam Date: 06/26/2025 11:20 Report Date: 06/26/2025 14:44 At the request of: YO HERNÁNDEZ DO Procedure: XR chest 2V PA AND LATERAL CHEST: CLINICAL HISTORY: Preop exam COMPARISON: None FINDINGS: Unremarkable cardiomediastinal silhouette. Lungs clear. No effusion or pneumothorax. XR/XR chest 2V IMPRESSION: NO ACUTE CARDIOPULMONARY ABNORMALITY. Impression dictated by: Sandor Smith M.D. 06/26/2025 2:44 PM Dictation Location: [place] [address] Electronically authenticated by: [id number] Y Date: 06/26/2025 14:44
== END 2025-06-26 10:12 | disposition home or self-care (01) ==
LOC: PST 10:11
PROVIDERS: PCP Midwife; Visit Provider Obstetrics & Gynecology
DX: Z01.810 Encounter for preprocedural cardiovascular examination (principal); N92.0 Excessive and frequent menstruation with regular cycle; N93.9 Abnormal uterine and vaginal bleeding, unspecified; N87.1 Moderate cervical dysplasia; Z86.19 Personal history of other infectious and parasitic diseases
CPT/HCPCS: 71046

== ENCOUNTER 2025-07-06 09:57 | Day surgery (SDC) | payer BC, OTHER, SELFPAY ==
[2025-06-26 10:38] VITALS: BP 126/80; PULSE 72; TEMP 36.3; O2SAT 100; BMI 22.3
[2025-07-06] VITALS (12 sets, daily range): BP systolic 102–121; BP diastolic 58–89; PULSE 57–81; TEMP 36.3–36.5; O2SAT 92–99; BMI 22.4
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
[2025-07-06 10:12] LABS: Hematocrit 34.6 % (36.0-48.0); Hemoglobin 11.5 g/dL (12.0-16.0); Immature Granulocytes Abs Auto 0.01 10^3/uL (0.00-0.03); Immature Granulocytes Pct Auto 0.2 % (0.0-0.5); Lymphocytes Absolute Auto 2.1 10^3/uL (1.2-3.8); Mean Corpuscular HGB Conc 33.2 g/dL (29.9-35.2); Mean Corpuscular Hemoglobin 31.4 pg (26.7-34.0); Mean Corpuscular Volume 94.5 fL (81.0-99.0); Platelet Count 161 10^3/uL (150-450); Red Blood Count 3.66 10^6/uL (4.20-5.40); White Blood Count 6.6 10^3/uL (4.0-11.0)
[2025-07-06] MEDS: FERRIC SUBSULFATE 8 ML SOLUTION TOPICAL (13:05)
[2025-07-06] MEDS: IODINE/POTASSIUM IODIDE 8 ML SOLUTION TOPICAL (13:05)
--- NOTE | 2025-07-06 13:13 | PM.ONB ---
Brief Operative Note Date of procedure: 07/06/25 Pre-op diagnosis general: cervical dysplasia, menorrhagia, desires permanent sterilization Post-op diagnosis: same as pre-op Procedure: NAME OF PROCEDURE: [leep, robotic assisted bilateral salpingectomy, endometrial betzaida ablation ] PROCEDURE: Patient was taken back to the Operating Room where she was given general anesthesia without difficulty. She was then placed in the dorsal lithotomy position. She was then prepped and draped in the normal sterile fashion. A weighted speculum was placed into the patient's vagina. The anterior lip of the cervix was identified and grasped with a single-tooth tenaculum. The patient's cervix was then copiously irrigated using vinegar.? Then, a Lugol Solution was also placed onto the patient's cervix which demonstrated increased uptake of the Lugol solution at the [?4 ] o?clock and [?10 ] o?clock positions.? At that time, the LEEP portion of the procedure was performed, including both the [4? ] o?clock and [?10 ] o?clock positions. The ectocervix was sent out to Pathology. The patient's cervix was then coagulated using suction cautery. Excellent hemostasis was assured.? Monsel Solution was then placed onto the patient's cervix to help maintain adequate hemostasis. The anterior lip was grasped with a single tooth tenaculum. The patient was then sounded to approximatley 9cm. The patient was gently sounded using Hegar dilators and the hysteroscope was passed through the cervix into the uterus where both ostia were seen. No gross evidence of polyps, fibroids or malignancy. The cervical length was noted to be 4cm. The Betzaida ablation apparatus was set to approximately 5cm in length. This was placed in through the cervix and into the uterus. After the seal was tested, at that time the total ablation of 120 seconds was performed with the Betzaida without difficulty. All instruments were removed from the vagina. A wet sponge stick was placed into the patient's vagina. Attention was then turned to the patient's abdomen, where a scalpel was used to make a small infraumbilical incision. The S retractors were then used to dissect the underlying layers until the fascia could be seen. The fascia was then grasped with Yg clamps and tented up. A knife was then used to make a small incision to the fascia. The muscle was identified, at that time two sutures of #0 Vicryl on a GI needlewas then used and placed through the fascia. The peritoneum was then identified and entered bluntly. The 10-4 Jackie was then placed into the patient's abdomen. This was confirmed with direct visualization of the bowel, using the laparoscope. The patient's abdomen was then insufflated using approximately 4 liters of CO2 gas. Survey of the patient's abdomen demonstrated normal appearing ovaries, uterus and tubes. A second and third lateral robotic ports, which was 8mm in size, was then placed laterally after incision was made in the skin under direct visualization. the robotic arms were engaged. The patient's tube on the patient's right side was identified. The tube was then tented up using a grasper. The ligasure was used to transect and coagulate the mesosalpingx from the fimbriated end to the insertion at the uterus, the tube was amputated and removed in its entirety.? Excellent hemostasis was noted. ?This was performed on the contralateral side as well. The lateral ports were then moved under direct visualization with excellent hemostasis. The abdomen was deinsufflated. All instruments were removed from the patient's abdomen. The fascia was closed using the #0 Vicryl on GI needle. The skin was closed using 4-0 Vicryl subcuticularly. All instruments were removed from the patient's vagina as well. The patient was taken out of the dorsal lithotomy position and placed in the supine position and taken to recovery in stable condition. Sponge, lap and needle counts were correct x2. ??? Anesthesia: ALICE Surgeon: Matias North Balance Wheel Motion Inspector: Clementine Fonseca Estimated blood loss (mL): 5 Pathology: other (endocervical tissue) Condition: stable Disposition: PACU Urinary Catheter Management Urinary Catheter Management Urethral: Cath placed during this visit: no
[2025-07-06] MEDS: HYDROCODONE/ACET 5-325 MG TABLET 1 TAB PO (13:58)
== END 2025-07-06 15:44 | disposition home or self-care (01) ==
PROVIDERS: Visit Provider Obstetrics & Gynecology
PROC: (CPT 840; principal; 2025-07-06 11:10)
PROC: (CPT 840; 2025-07-06 11:10)
PROC: (CPT 840; 2025-07-06 11:10)
DX: Z30.2 Encounter for sterilization (principal); N92.0 Excessive and frequent menstruation with regular cycle; N93.9 Abnormal uterine and vaginal bleeding, unspecified; R10.30 Lower abdominal pain, unspecified; N87.1 Moderate cervical dysplasia; N83.8 Other noninflammatory disorders of ovary, fallopian tube and broad ligament; Z86.19 Personal history of other infectious and parasitic diseases; R87.820 Cervical low risk human papillomavirus (HPV) DNA test positive; F17.290 Nicotine dependence, other tobacco product, uncomplicated; E03.9 Hypothyroidism, unspecified; J45.909 Unspecified asthma, uncomplicated; F41.9 Anxiety disorder, unspecified; F32.A Depression, unspecified
CPT/HCPCS: 57522; 58563; 58661; 36415; 84702; 85025; 88302; 88307; J1100; J1885; J2003; J2250; J2405; J2704; J3010